=== PATIENT | female | born 1940 | race Caucasian/White ===

== ENCOUNTER → 2020-10-14 13:16 | Outpatient (BNVA) | payer MEDICARE, SELFPAY | PROVIDERS: PCP Internal Medicine; Visit Provider Internal Medicine Endocrinology, Diabetes & Metabolism | DX: E11.65 Type 2 diabetes mellitus with hyperglycemia (principal); E11.21 Type 2 diabetes mellitus with diabetic nephropathy; E11.22 Type 2 diabetes mellitus with diabetic chronic kidney disease; N18.30 Chronic kidney disease, stage 3 unspecified; E78.5 Hyperlipidemia, unspecified; Z79.4 Long term (current) use of insulin | CPT/HCPCS: 82947; 99202 ==

== ENCOUNTER → 2020-11-02 07:58 | Outpatient (BNVA) | payer MEDICARE, SELFPAY | PROVIDERS: PCP Internal Medicine; Visit Provider Internal Medicine Endocrinology, Diabetes & Metabolism | DX: E11.65 Type 2 diabetes mellitus with hyperglycemia (principal); E11.21 Type 2 diabetes mellitus with diabetic nephropathy; E11.22 Type 2 diabetes mellitus with diabetic chronic kidney disease; N18.30 Chronic kidney disease, stage 3 unspecified; E13.9 Other specified diabetes mellitus without complications; S36.209S Unspecified injury of unspecified part of pancreas, sequela; E78.5 Hyperlipidemia, unspecified; Z79.4 Long term (current) use of insulin | CPT/HCPCS: 82947; 99212 ==

== ENCOUNTER → 2021-02-16 07:57 | Outpatient (BNVA) | payer MEDICARE, SELFPAY | PROVIDERS: PCP Internal Medicine; Visit Provider Nurse Practitioner Gerontology | DX: E11.65 Type 2 diabetes mellitus with hyperglycemia (principal); E11.21 Type 2 diabetes mellitus with diabetic nephropathy; E13.9 Other specified diabetes mellitus without complications; E11.22 Type 2 diabetes mellitus with diabetic chronic kidney disease; I12.9 Hypertensive chronic kidney disease with stage 1 through stage 4 chronic kidney disease, or unspecified chronic kidney disease; N18.30 Chronic kidney disease, stage 3 unspecified; E78.5 Hyperlipidemia, unspecified; S36.209S Unspecified injury of unspecified part of pancreas, sequela; Z79.4 Long term (current) use of insulin | CPT/HCPCS: 82947; 83036; 99212 ==

== ENCOUNTER 2021-02-17 08:01 | Outpatient (REF) | payer MEDICARE, SELFPAY ==
[2021-02-17 11:41] LABS: Alanine Aminotransferase 30 U/L (0-31); Albumin Level 3.6 g/dL (3.5-5.0); Alkaline Phosphatase 129 U/L (39-117); Anion Gap 12 (12-20); Aspartate Amino Transferase 34 U/L (5-31); Bilirubin Total 0.9 mg/dL (0.0-1.0); Blood Urea Nitrogen 15 mg/dL (9-16); Calcium 8.6 mg/dL (8.4-10.2); Carbon Dioxide 29 mmol/L (22-29); Chloride 106 mmol/L (96-108); Cholesterol 155 mg/dL; Estimated Glomerular Filt Rate 37; Glucose Fasting 222 mg/dL (60-99); HDL Cholesterol 66 mg/dL; LDL Cholesterol Calculated 71 mg/dl; Potassium 3.7 mmol/L (3.3-5.1); Sodium 143 mmol/L (135-145); Total Protein 6.2 g/dL (6.5-8.0); Triglycerides 90 mg/dL
[2021-02-17 11:58] LABS: Creatinine Urine 127.92 mg/dL; Microalbum/Creatinine Ratio Ur 46.9 ug/mg cr
[2021-02-18 08:16] LABS: LDL Cholesterol Direct 80 mg/dL (<100)
== END 2021-02-17 08:02 | disposition home or self-care (01) ==
LOC: HO.10HDLNP 08:01
PROVIDERS: Visit Provider Nurse Practitioner Gerontology
DX: E11.65 Type 2 diabetes mellitus with hyperglycemia (principal)
CPT/HCPCS: 80053; 80061; 82043; 83721

== ENCOUNTER → 2021-09-19 09:42 | Outpatient (BNVA) | payer MEDICARE, SELFPAY | PROVIDERS: PCP Internal Medicine; Visit Provider Nurse Practitioner Gerontology | DX: E11.65 Type 2 diabetes mellitus with hyperglycemia (principal); E11.21 Type 2 diabetes mellitus with diabetic nephropathy; E11.22 Type 2 diabetes mellitus with diabetic chronic kidney disease; N18.30 Chronic kidney disease, stage 3 unspecified; E13.9 Other specified diabetes mellitus without complications; S36.209S Unspecified injury of unspecified part of pancreas, sequela; E78.5 Hyperlipidemia, unspecified; I10 Essential (primary) hypertension; Z79.4 Long term (current) use of insulin | CPT/HCPCS: 82947; 99212 ==

== ENCOUNTER → 2022-03-02 10:10 | Outpatient (BNVA) | payer MEDICARE, SELFPAY | PROVIDERS: PCP Internal Medicine; Visit Provider Internal Medicine Endocrinology, Diabetes & Metabolism | DX: E13.9 Other specified diabetes mellitus without complications (principal); S36.209S Unspecified injury of unspecified part of pancreas, sequela | CPT/HCPCS: 82947; 83036; 99212 ==

== ENCOUNTER → 2022-09-29 08:43 | Outpatient (BNVA) | payer MEDICARE, SELFPAY | PROVIDERS: PCP Internal Medicine; Visit Provider Registered Nurse Diabetes Educator | DX: E11.21 Type 2 diabetes mellitus with diabetic nephropathy (principal) | CPT/HCPCS: 99211 ==

== ENCOUNTER → 2022-10-02 10:08 | Outpatient (BNVA) | payer MEDICARE, SELFPAY | PROVIDERS: PCP Internal Medicine; Visit Provider Dietitian, Registered | DX: E13.9 Other specified diabetes mellitus without complications (principal); S36.209S Unspecified injury of unspecified part of pancreas, sequela | CPT/HCPCS: 97802 ==

== ENCOUNTER 2022-11-21 10:04 | Outpatient (AMB) | payer MEDICARE, SELFPAY ==
--- NOTE | 2022-11-21 10:47 | A.OFFVIS_ITS ---
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 Accompanied by: Self / Same As Patient Allergies tramadol Allergy (Unknown, Verified 03/02/22 10:29) Unknown HPI Comprehensive Diabetes Asmnt Most Recent Diabetes Results: Microalb/Creat Ratio 46.9 ug/mg cr 02/17/21 Cholesterol 155 mg/dL 02/17/21 HDL Cholesterol 66 mg/dL 02/17/21 Triglycerides 90 mg/dL 02/17/21 Creatinine 1.36 mg/dL (0.5-1.4) 02/17/21 Blood Urea Nitrogen 15 mg/dL (9-16) 02/17/21 Sodium 143 mmol/L (135-145) 02/17/21 Potassium 3.7 mmol/L (3.3-5.1) 02/17/21 Chloride 106 mmol/L (96-108) 02/17/21 Carbon Dioxide 29 mmol/L (22-29) 02/17/21 Calcium 8.6 mg/dL (8.4-10.2) 02/17/21 AST 34 U/L (5-31) H 02/17/21 ALT 30 U/L (0-31) 02/17/21 Total Protein 6.2 g/dL (6.5-8.0) L 02/17/21 Albumin 3.6 g/dL (3.5-5.0) 02/17/21 [facility] Medical History Afib CHF (congestive heart failure) 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 11% Hyperglycemia:? 33% Time in Range:? 56% Average glucose for the last 2 weeks? 154 mg/dL Pt is having significant hypoglycemic event, patient is also not scanning sensor every 6-8 hours Patient seems confused regarding how she should dose NovoLog insulin at meals Patient also reports sometimes taking NovoLog doses to 60 minutes after meals Patient also does not seem to remember to always take NovoLog Patient is currently using NovoLog sliding scale She is also taking Lantus 10 units daily Reviewed how to interpret trend arrows Reminded patient that to check finger sticks if symptoms do not match sensor reading. Discussed lag time between finger stick and sensor data.? Patient able to insert sensor independently at home without issue.? Will discuss with Dr. 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
== END 2022-11-21 11:00 | disposition home or self-care (01) ==
PROVIDERS: PCP Internal Medicine; Visit Provider Registered Nurse Diabetes Educator
DX: E13.9 Other specified diabetes mellitus without complications (principal); S36.209S Unspecified injury of unspecified part of pancreas, sequela

== ENCOUNTER → 2022-11-21 10:04 | Outpatient (BNVA) | payer MEDICARE, SELFPAY | PROVIDERS: PCP Internal Medicine; Visit Provider Registered Nurse Diabetes Educator | DX: S36.209S Unspecified injury of unspecified part of pancreas, sequela (principal); X58.XXXS Exposure to other specified factors, sequela; E11.65 Type 2 diabetes mellitus with hyperglycemia; E11.21 Type 2 diabetes mellitus with diabetic nephropathy; Z79.4 Long term (current) use of insulin | CPT/HCPCS: 99211 ==

== ENCOUNTER 2023-01-22 06:09 | Outpatient (REF) | payer SELFPAY ==
[2023-01-22 05:54] LABS: MANUAL DIFF FLAG NO
[2023-01-22 06:37] LABS: Anion Gap 15 (12-20); Blood Urea Nitrogen 5 mg/dL (9-16); C Reactive Protein 0.43 mg/dL (< or = 0.50); Calcium 8.8 mg/dL (8.4-10.2); Carbon Dioxide 25 mmol/L (22-29); Chloride 108 mmol/L (96-108); Estimated Glomerular Filt Rate 56; Glucose Random 122 mg/dL (60-115); Potassium 3.4 mmol/L (3.3-5.1); Sodium 145 mmol/L (135-145)
[2023-01-22 06:59] LABS: Basophils Absolute Auto 0.1 X10*3/uL (0.0-0.2); Basophils Percent Auto 1.3 % (0-2); Eosinophils Absolute Auto 0.3 X10*3/uL (0.0-0.4); Eosinophils Percent Auto 4.2 % (0-4); Hematocrit 43.2 % (37.0-47.0); Hemoglobin 13.8 g/dl (12.0-16.0); Imm Gran Abs Auto 0.03 X10*3/uL (0.00-0.03); Imm Gran Pct Auto 0.5 % (0.0-0.4); Lymphocytes Absolute Auto 1.4 X10*3/uL (1.2-4.9); Lymphocytes Percent Auto 21.7 % (20-40); Mean Corpuscular HGB Conc 31.9 g/dl (31.0-35.0); Mean Corpuscular Hemoglobin 32.9 pg (27.0-33.0); Mean Corpuscular Volume 103.1 fL (80.0-98.0); Mean Platelet Volume 9.9 fL (9.4-12.3); Monocytes Absolute Auto 0.5 X10*3/uL (0.1-1.2); Monocytes Percent Auto 7.7 % (2-11); Neutrophils Absolute Auto 4.1 x10*3/uL (2.0-8.3); Neutrophils Percent Auto 64.6 % (45-73); Platelet Count 241 X10*3/uL (160-400); Red Blood Count 4.19 X10*6/uL (4.20-5.50); Red Cell Distribution Width 14.8 % (11.0-16.0); White Blood Count 6.4 X10*3/uL (4.8-10.8)
[2023-01-22 07:27] LABS: Erythrocyte Sedimentation Rate 16 MM/HR (0-20)
== END 2023-01-22 06:10 | disposition home or self-care (01) ==
LOC: HO.MMNH1L 06:09
PROVIDERS: Visit Provider Family Medicine
DX: I10 Essential (primary) hypertension (principal)
CPT/HCPCS: 36415; 80048; 85025; 85652; 86140

== ENCOUNTER 2023-11-23 10:20 | Outpatient (AMB) | payer MEDICARE, SELFPAY ==
--- NOTE | 2023-11-23 10:30 | MHC.OFFVIS ---
Vital Signs 11/23/23 10:31 Weight 128 lb 4.944 oz BP 120/82 Blood Pressure Location Rt brachial Position Sitting Pulse 50 Pulse Source Pulse Oximeter Intake Visit Reasons: Diabetes/LVM Intake Note: New Patient presents today to establish treatment for Type 2 Diabetes Mellitus: Last diabetic eye exam was on: 01/2023 Last Podiatry Exam was on: Doesn't have one. Most recent HbA1c: 9.8% Random Glucose- 208 mg/dL Plan Rep Required: No Accompanied by: Self / Same As Patient Allergies tramadol Allergy (Unknown, Verified 11/23/23 10:36) Unknown Medication List - Last Reconciled 11/23/23 by JAKE Vaca alendronate 70 mg PO QWEEK apixaban 2.5 mg PO BID blood sugar diagnostic As directed blood sugar diagnostic (FreeStyle Precision Toney Strips) As directed 4x/day clobetasol 0.05% 1 appl topical BID clopidogrel 75 mg PO DAILY digoxin 62.5 mcg PO DAILY diltiazem HCl CD 300 mg PO DAILY famotidine 20 mg PO DAILY FreeStyle Serafin 2 Sensor (flash glucose sensor) Every 14 days NS furosemide 20 mg PO DAILY gabapentin 100 mg PO TID hydralazine 75 mg PO BID insulin aspart U-100 5-10 units before meals subcut 3 times a day; insulin degludec (Tresiba FlexTouch U-100 insulin) 18 units (0.18 mL) subcut BEDTIME levofloxacin mg PO ohlkqi-ftageyfw-cadnohz 24,000-76,000 -120,000 unit (Creon) 1 cap PO BID lisinopril 2.5 mg PO DAILY metoprolol tartrate 150 mg PO pantoprazole 40 mg PO DAILY pen needle, diabetic (BD Kerry 2nd Gen Pen Needle) 5 times a day HPI Comments Details: Patient is 82-year-old female with DM type 2 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 Patient was last seen on 03/02/[address] Nielsen. She has pancreatic diabetes with multiple complications and no beta cell reserve likely due to pancreatic surgery. She spends 6 months in [place]. 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 Continuous glucose monitoring: CGM is active 76% with an average blood glucose of 221. Patient has very low blood glucose of less than 0% of the time. Patient had low blood glucose from 1% the time. Blood glucose in target range of 70-180, 34%. Blood glucose high 29% and very high >250 36% of the time. A1c 9.8% today. Micro and macrovascular complications: nephropathy, neuropathy (plantar surfaces of feet). Diabetes medications: Basaglar 17 units (increased from 15 units by her PCP mid September), NovoLog 5 units before meals with correction scale as noted. More than 200 mg/dL to add 2 units More than 300 mg/dL to add 3 units More than 400 mg/dL to add 4 units. Hypoglycemia: Denies. Hyperglycemia: + urinary frequency and polydipsia. Ophthalmology evaluation: ?date. Done in [place] during the past 12 months. No retinopathy per patient. She eats 3 meals per day. She been having desserts in the afternoon and evening most days. External labs dated 10/12/2023 Hemoglobin A1c 9.9% Creatinine 1.27 GFR 41 Alk-phos 194 AST 141 ALT 81 Total cholesterol 149 HDL 60 LDL 71 TSH 5.030 Free T4 1.05 Urine creatinine 41.9 Malb/CREAT ratio <7 Microalbumin < 3 ROS: Constitutional: No unexplained weight loss, fever, chills, fatigue Respiratory: No shortness of breath Cardiovascular: No chest pain Neurologic: No headache, dizziness, syncope Physical exam: Constitutional: Alert, in no distress. Eyes: Pupils are equal, round and reactive to light. Extraocular muscles intact. Neck: Supple, Full range of motion. No lymphadenopathy. Respiratory: Clear to auscultation. Cardiovascular: S1 S2 regular. No murmurs. Feet:: Warm and well perfused. No clubbing, cyanosis or edema. No open wounds. Mildly decreased vibratory sensation bilaterally. Intact sensation b/l to monofilament. 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 Switch Basaglar to Tresiba 18 units. Given age we will adjust sliding scale modestly: NovoLog 5 units before meals with correction scale: More than 200 mg/dL to add 3 units More than 300 mg/dL to add 4 units More than 400 mg/dL to add 5 units. Short term follow up in 6 weeks for diabetes med review. Would likely benefit from pump. Refer piyush THOMAS. Written instructions provided to patient. Orders: Orders AMB Hemoglobin A1c Today [place] NP E11.65 - Type 2 diabetes mellitus with hyperglycemia, Z13.9 - Encounter for screening, unspecified Referrals Diabetes Education Referral JAKE Vaca E13.9 - Other specified diabetes mellitus without complications, S36.209S - Unspecified injury of unspecified part of pancreas, sequela Medications: New insulin degludec (Tresiba FlexTouch U-100 insulin) Replaces Basaglar(insulin glargine) 18 units (0.18 mL) subcut BEDTIME 15 mL 5RF JAKE Vaca Discontinued insulin glargine (Basaglar KwikPen U-100 Insulin) Discontinued Reason: Doctor's Order 15 units (0.15 mL) subcut DAILY 15 mL 0RF E11.65 - Type 2 diabetes mellitus with hyperglycemia Coding Level of Care Code Est Pt Level 4 (74224) Complex EM visit Add On G2211 Diagnoses 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
[2023-11-23 10:31] VITALS: BP 120/82; PULSE 50
[2023-11-23 10:46] LABS: Glucose, Whole Blood 208 mg/dL (60-115)
== END 2023-11-23 11:32 | disposition home or self-care (01) ==
PROVIDERS: PCP Internal Medicine; Visit Provider Nurse Practitioner Adult Health
DX: E13.9 Other specified diabetes mellitus without complications (principal); S36.209S Unspecified injury of unspecified part of pancreas, sequela; E11.22 Type 2 diabetes mellitus with diabetic chronic kidney disease; N18.30 Chronic kidney disease, stage 3 unspecified; Z13.9 Encounter for screening, unspecified; E11.65 Type 2 diabetes mellitus with hyperglycemia
CPT/HCPCS: 99214; G2211

== ENCOUNTER → 2023-11-23 10:20 | Outpatient (BNVA) | payer MEDICARE, SELFPAY | PROVIDERS: PCP Internal Medicine; Visit Provider Nurse Practitioner Adult Health | DX: E13.22 Other specified diabetes mellitus with diabetic chronic kidney disease (principal); S36.209S Unspecified injury of unspecified part of pancreas, sequela; N18.30 Chronic kidney disease, stage 3 unspecified; Z79.4 Long term (current) use of insulin | CPT/HCPCS: 82947; 83036; 99212 ==

== ENCOUNTER 2024-01-02 13:24 | Outpatient (AMB) | payer SELFPAY ==
--- NOTE | 2024-01-02 13:42 | A.OFFVIS_ITS ---
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: No Accompanied by: Self / Same As Patient Allergies tramadol Allergy (Unknown, Verified 11/23/23 10:36) Unknown HPI Comprehensive Diabetes Asmnt Most Recent Diabetes Results: Creatinine 0.95 mg/dL (0.5-1.4) 01/22/23 Blood Urea Nitrogen 5 mg/dL (9-16) L 01/22/23 Sodium 145 mmol/L (135-145) 01/22/23 Potassium 3.4 mmol/L (3.3-5.1) 01/22/23 Chloride 108 mmol/L (96-108) 01/22/23 Carbon Dioxide 25 mmol/L (22-29) 01/22/23 Calcium 8.8 mg/dL (8.4-10.2) 01/22/23 AST 72 U/L (5-31) H 01/10/23 ALT 49 U/L (0-31) H 01/10/23 Total Protein 5.8 g/dL (6.5-8.0) L 01/10/23 Albumin 3.0 g/dL (3.5-5.0) L 01/10/23 [facility] Medical History (Updated 11/23/23 @ 12:06 by JAKE Vaca) Neuropathy of both feet Osteoporosis 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 Social History Household Members: Other Household Members Other:: [facility] Alcohol intake: former Patient Tobacco Use Status: Former Tobacco user Assessment & Plan Assessment & Plan (1) CKD stage 3 due to type 2 diabetes mellitus: Code(s): E11.22 - Type 2 diabetes mellitus with diabetic chronic kidney disease; N18.30 - Chronic kidney disease, stage 3 unspecified Plan: Personal Continuous Glucose Monitor: Patients CGM information reviewed Reviewed patient's sensor data: Hypoglycemia: ? 3% Hyperglycemia:? 54% Time in Range:43%? Average glucose for the last 2 weeks 198? mg/dL Patient is episodes of hypoglycemia have improved from 11% at last visit to 3% at this visit Patient was recently switched to Tresiba 18 units, patient is still experiencing some motor and generator brush maker hypoglycemia. Recommended to patient she decrease Tresiba from 18 units to 14 units Also reminded patient to carry juice box or glucose tabs with her, and put hy poglycemic treatment next to her bed so if she wakes up overnight or in the morning with low blood sugar she can treat hypoglycemia Patient will be leaving for [place] February 28, will follow-up with chief administrative officer in the spring Patient able to insert sensor independently at home without issue.? People with diabetes can develop many different foot problems. Even ordinary problems can get worse and lead to serious complications. Foot problems most often happen when there is nerve damage, also called neuropathy. This can cause tingling, pain (burning or stinging), or weakness in the foot. It can also cause loss of feeling in the foot, so you can injure it and not know it. Poor blood flow or changes in the shape of your feet or toes may also cause problems. Take good care of your feet and see your doctor right away if you see any signs of foot problems. Take care of your feet. When you have diabetes, caring for your feet is very important in avoiding serious foot complications. Take care of your feet by doing the following:? * Wash your feet thoroughly everyday * Dry them thoroughly, and don?t forget to dry between your toes * Moisturize your feet, but avoid moisturizing between your toes? * Keep your toenails trim, and use an emery board to file down sharp edges * Check your feet for sores, cuts, blisters, corns, or redness daily. Let your doctor know if you find any of these.? * Wear moisture-wicking socks? * Before putting your shoes on, check for sharp objects (i.e. small rocks)? * Wear shoes that fit well and don?t rub your feet While you?re at it, avoid these: * Don?t walk around barefoot * Don?t soak your feet Portions of this note were created using voice recognition software, please excuse any words or phrases that may have been misinterpreted. Patient Instructions: Reduce Tresiba from 18 units to 14 units daily People with diabetes can develop many different foot problems. Even ordinary problems can get worse and lead to serious complications. Foot problems most often happen when there is nerve damage, also called neuropathy. This can cause tingling, pain (burning or stinging), or weakness in the foot. It can also cause loss of feeling in the foot, so you can injure it and not know it. Poor blood flow or changes in the shape of your feet or toes may also cause problems. Take good care of your feet and see your doctor right away if you see any signs of foot problems. Take care of your feet. When you have diabetes, caring for your feet is very important in avoiding serious foot complications. Take care of your feet by doing the following:? * Wash your feet thoroughly everyday * Dry them thoroughly, and don?t forget to dry between your toes * Moisturize your feet, but avoid moisturizing between your toes? * Keep your toenails trim, and use an emery board to file down sharp edges * Check your feet for sores, cuts, blisters, corns, or redness daily. Let your doctor know if you find any of these.? * Wear moisture-wicking socks? * Before putting your shoes on, check for sharp objects (i.e. small rocks)? * Wear shoes that fit well and don?t rub your feet While you?re at it, avoid these: * Don?t walk around barefoot * Don?t soak your feet * Don?t smoke [email or web address] Coding Level of Care Code Est Pt Level 1 (12450) Diagnoses CKD stage 3 due to type 2 diabetes mellitus E11.22; N18.30
== END 2024-01-02 13:50 | disposition home or self-care (01) ==
PROVIDERS: PCP Internal Medicine; Visit Provider Registered Nurse Diabetes Educator
DX: E11.22 Type 2 diabetes mellitus with diabetic chronic kidney disease (principal); N18.30 Chronic kidney disease, stage 3 unspecified

== ENCOUNTER → 2024-01-02 13:24 | Outpatient (BNVA) | payer MEDICARE, SELFPAY | PROVIDERS: PCP Internal Medicine; Visit Provider Registered Nurse Diabetes Educator | DX: E11.22 Type 2 diabetes mellitus with diabetic chronic kidney disease (principal); N18.30 Chronic kidney disease, stage 3 unspecified | CPT/HCPCS: 99211 ==

== ENCOUNTER 2024-01-04 10:48 | Outpatient (AMB) | payer MEDICARE, SELFPAY ==
--- NOTE | 2024-01-04 10:49 | A.OFFVIS_ITS ---
Vital Signs 01/04/24 10:59 Height 5 ft 1 in Weight 124 lb 1.924 oz BMI 23.4 BP 130/68 Blood Pressure Location Rt brachial Position Sitting Pulse 69 Pulse Source Pulse Oximeter Intake Visit Reasons: Diabetes Intake Note: Patient present today to follow up on Type 2 Diabetes Mellitus. Last Diabetic Eye exam: 01/2023, has yearly visits. Last Podiatry Visit: Does not see a Stone Lathe Operator Random Glucose: 249 mg/dl HgA1C: 9.8% 11/23/23 Job Boss Required: No Accompanied by: Self / Same As Patient Allergies tramadol Allergy (Unknown, Verified 01/04/24 11:00) Unknown Medication List - Last Reconciled 01/04/24 by JAKE Vaca alendronate 70 mg PO QWEEK apixaban 2.5 mg PO BID blood sugar diagnostic As directed blood sugar diagnostic (FreeStyle Precision Toney Strips) As directed 4x/day clobetasol 0.05% 1 appl topical BID clopidogrel 75 mg PO DAILY digoxin 62.5 mcg PO DAILY diltiazem HCl CD 300 mg PO DAILY famotidine 20 mg PO DAILY FreeStyle Serafin 2 Sensor (flash glucose sensor) Every 14 days NS furosemide 20 mg PO DAILY gabapentin 100 mg PO TID glucagon 3 mg/actuation (Baqsimi) 3 mg intranasal ONCE hydralazine 75 mg PO BID insulin aspart U-100 5-10 units before meals subcut 3 times a day; insulin degludec (Tresiba FlexTouch U-100 insulin) 14 units subcut BEDTIME levofloxacin mg PO pvvtoz-yaiiaonj-hbleovq 24,000-76,000 -120,000 unit (Creon) 1 cap PO BID lisinopril 2.5 mg PO DAILY metoprolol tartrate 150 mg PO pantoprazole 40 mg PO DAILY pen needle, diabetic (BD Kerry 2nd Gen Pen Needle) 5 times a day HPI Comments Details: Patient is 83-year-old female with DM type 2 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 Patient was last seen by me She has pancreatic diabetes with multiple complications and no beta cell reserve likely due to pancreatic surgery. She spends 6 months in [place]. She leaves early February. she is with her son, Codey today ([phone]). 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 [phone] Dr. Culp Continuous glucose monitoring: CGM is active 68% with an average blood glucose of 197 (down from 221). Patient has very low blood glucose of less than 0% of the time. Patient had low blood glucose 3% the time. Blood glucose in target range of 70-180, 45% (up from 34%). Blood glucose high 25% and very high >250 27 % of the time (down from 36%). BG trending high after her noon meal BG trend lower correctional probation officer hours. Micro and macrovascular complications: nephropathy, neuropathy (plantar surfaces of feet). Diabetes medications: Basaglar 18 units, NovoLog 5 units before meals with correction scale as noted. More than 200 mg/dL to add 3 units More than 300 mg/dL to add 4 units More than 400 mg/dL to add 5 units. Hypoglycemia: She's had nocturnal episodes and decreased Tresiba to 14 units after seeing DE 01/01 and has not had hypoglycemia the last 2 days. BG this morn ing 116. Hyperglycemia: + urinary frequency and polydipsia. Ophthalmology evaluation: ?date. Done in [place] during the past 12 months. No retinopathy per patient. She eats 3 meals per day. She been having desserts in the afternoon. External labs dated 10/12/2023 Hemoglobin A1c 9.9% Creatinine 1.27 GFR 41 Alk-phos 194 AST 141 ALT 81 Total cholesterol 149 HDL 60 LDL 71 TSH 5.030 Free T4 1.05 Urine creatinine 41.9 Malb/CREAT ratio <7 Microalbumin < 3 ROS: Constitutional: No unexplained weight loss, fever, chills, fatigue Respiratory: No shortness of breath Cardiovascular: No chest pain Neurologic: No headache, dizziness, syncope Physical exam: Constitutional: Alert, in no distress. Eyes: Pupils are equal, round and reactive to light. Extraocular muscles intact. Neck: Supple, Full range of motion. No lymphadenopathy. Respiratory: Clear to auscultation. Cardiovascular: S1 S2 regular. No murmurs. 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 Hyperglycemia has improved, but she experienced hypoglycemia following increase in basal bolus dose. Continue reduced dose of 14 units of Tresiba at this time. Sent glucose tablets and given instructions on treating hypoglycemia. I will see if Baqsimi is approved by insurance given patient's advanced age-son states she was incoherent a few times last year and they had to call 911 though only 1 of these episodes was due to low BG. Reviewed CGM readings with PROCESS ENVIRONMENTAL TECHNICIAN and made the following adjustment to pre-lunch dose of Novolog. Lunch: NovoLog 5 units before meals with correction scale: More than 200 mg/dL to add 5 units More than 300 mg/dL to add 6 units More than 400 mg/dL to add 7 units. Breakfast and dinner NovoLog 5 units before meals with correction scale: More than 200 mg/dL to add 3 units More than 300 mg/dL to add 4 units More than 400 mg/dL to add 5 units. Typed instructions provided to patient. Follow up in January before trip to [place] or sooner as needed. Medications: New glucagon 3 mg/actuation (Baqsimi) 3 mg (one actuation) into a single nostril; if no response, may repeat in 15 minutes using a new intranasal device. 3 mg intranasal ONCE 2 ea 0RF Patient Instructions: Continue Tresiba 14 units. Breakfast and dinner NovoLog 5 units before meals with correction scale: More than 200 mg/dL to add 3 units More than 300 mg/dL to add 4 units More than 400 mg/dL to add 5 units. Lunch: NovoLog 5 units before meals with correction scale: More than 200 mg/dL to add 5 units More than 300 mg/dL to add 6 units More than 400 mg/dL to add 7 units. I sent glucose tablets to your pharmacy and submitted a prescription for a nasal spray to treat low blood sugar. If you experience low blood sugar, treat this by eating a chewable fruit candy like skittles or jelly beans (about 8 pieces), 4 ounces (1/2 cup) of fruit juice (not diet), 1 tablespoon of honey or 4 glucose tablets. If your blood sugar is under 50, take double the amount of one of the above. Recheck your blood sugar in 15 minutes. 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
[2024-01-04 10:59] VITALS: BP 130/68; PULSE 69; BMI 23.4
[2024-01-04 11:13] LABS: Glucose, Whole Blood 249 mg/dL (60-115)
== END 2024-01-04 12:11 | disposition home or self-care (01) ==
PROVIDERS: PCP Internal Medicine; Visit Provider Physician Assistant Medical
DX: E11.22 Type 2 diabetes mellitus with diabetic chronic kidney disease (principal); S36.209S Unspecified injury of unspecified part of pancreas, sequela; N18.30 Chronic kidney disease, stage 3 unspecified
CPT/HCPCS: 99215

== ENCOUNTER → 2024-01-04 10:48 | Outpatient (BNVA) | payer MEDICARE, SELFPAY | PROVIDERS: PCP Internal Medicine; Visit Provider Physician Assistant Medical | DX: E11.22 Type 2 diabetes mellitus with diabetic chronic kidney disease (principal); N18.30 Chronic kidney disease, stage 3 unspecified; S36.209S Unspecified injury of unspecified part of pancreas, sequela; X58.XXXS Exposure to other specified factors, sequela | CPT/HCPCS: 82947; 99212 ==

== ENCOUNTER 2024-02-19 09:22 | Outpatient (AMB) | payer MEDICARE, SELFPAY ==
--- NOTE | 2024-02-19 09:29 | A.OFFVIS_ITS ---
Vital Signs 02/19/24 09:31 Height 5 ft 1 in Weight 133 lb 2.547 oz BMI 25.2 BP 118/62 Blood Pressure Location Rt brachial Position Sitting Pulse 86 Pulse Source Pulse Oximeter Intake Visit Reasons: Diabetes/LVM Intake Note: Patient presents today for a follow-up on Type 2 Diabetes Mellitus: Last Diabetic eye exam was on: 01/2023, DUE Last Podiatry exam was on: Does not see a Authorization Rep Most recent HbA1c: 9.9%, 02/19/2024 Random Glucose- 388 mg/dL, Today Case Operator Required: No Accompanied by: Self / Same As Patient Allergies tramadol Allergy (Unknown, Verified 02/19/24 09:30) Unknown HPI Comments Details: Patient is 84-year-old female with DM type 2 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 She has pancreatic diabetes with multiple complications and no beta cell reserve likely due to pancreatic surgery. She spends 6 months in [place]. She leaves early February. Her son, Codey, is not here today ([phone]), but the patient said to contact him after the appointment to update him. 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 HgA1C: 9.9% 02/19/24 POC 388. She ate 2 eggs, 2 slices of toast with butter, and sugar free creamer in coffee at 7:30 this morning. She did not take Tresiba this morning because she ran out of needles yesterday. Rx sent to pharmacy. Denies nausea, vomiting, vision changes, dizziness, weakness. States she feels okay today aside from being tired and allergies are bothering her. Her vice president for instruction in [place] is: [facility] Endocrinology [facility]. [phone] Dr. Culp Reviewed CGM download: Time CGM active: 69% Average glucose 231 Glucose variability 41% Very high 43% High 23% Target 32% Low 1% down from 3% Very low 1% Nocturnal hypoglycemia and hyperglycemia and hyperglycemia throughout the day February 16 hypoglycemia with blood glucose of 40 at 12 am. Patient says she didn't have any symptoms or treat this. States when she is low she usually feels weak and shaky. She tells me that she sometimes forgets to take Novolog before dinner which is at 5 or 5:30 pm and will take the injection at 7 or 7:30pm. Micro and macrovascular complications: nephropathy, neuropathy (plantar surfaces of feet). Diabetes medications: Tresiba 14 units, NovoLog 5 units before meals with correction scale as noted. Lunch: More than 200 mg/dL to add 5 units More than 300 mg/dL to add 6 units More than 400 mg/dL to add 7 units. Breakfast and dinner: NovoLog 5 units before meals with correction scale: More than 200 mg/dL to add 3 units More than 300 mg/dL to add 4 units More than 400 mg/dL to add 5 units. Ophthalmology evaluation: Done in [place] during the past 12 months. No retinopathy per patient. External labs dated 10/12/2023 Hemoglobin A1c 9.9% Creatinine 1.27 GFR 41 Alk-phos 194 AST 141 ALT 81 Total cholesterol 149 HDL 60 LDL 71 TSH 5.030 Free T4 1.05 Urine creatinine 41.9 Malb/CREAT ratio <7 Microalbumin < 3 ROS: ROS: Constitutional: No unexplained weight loss, fever or chills. Eyes: No vision changes, blurry vision, double vision, eye pain, eye redness, eye discharge. ENT: No hearing loss, sneezing, congestion, +runny nose and post nasal drip. Respiratory: No shortness of breath, cough or sputum production. Cardiovascular: No chest pain, chest pressure or chest discomfort. No pa lpitations or pedal edema. Gastrointestinal: No anorexia, nausea, vomiting or diarrhea. No abdominal pain Neurologic: No headache, dizziness, syncope, weakness Endocrine: No cold or heat intolerance. No polyuria or polydipsia. Physical exam: Constitutional: Alert, in no distress. Eyes: Pupils are equal, round and reactive to light. Extraocular muscles intact. Neck: Supple, Full range of motion. No lymphadenopathy. Respiratory: Clear to auscultation. Cardiovascular: S1 S2 regular. No murmurs. 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 Social History Household Members: Other Household Members Other:: Lives with [facility] Alcohol intake: former Patient Tobacco Use Status: Former Tobacco user Physical Exam Vital Signs: Last Vital Signs Pulse 86 02/19/24 09:31 BP 118/62 02/19/24 09:31 BMI result Body Mass Index 25.2 Results AMB Hemoglobin A1c AMB Hemoglobin A1c 9.9 % Last Edit by EMANUEL Fischer on 02/19/24 09:51 Results Reviewed Results Reviewed: Laboratory Last Values Glucose (Clinic) 388 mg/dL (60-115) H* 02/19/24 09:41 Hgb A1c (Clinic) 9.9 % (4.0-6.0) H 02/19/24 09:31 Assessment & Plan Assessment & Plan (1) 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 Patient was asymptomatic when BG was in 40s a couple nights ago. This resolved without intervention. This may have been a false reading. She had 2 other low glucose events in the 60s which may have been due to improper administration of insulin aspart. Written/verbal instructions on insulin administration reviewed with the patient. She has glucose tablets and given instructions on treating hypoglycemia and Baqsimi. Due to hyperglycemia and advanced age we will simplify and tighten her sliding scale: Insulin aspart: Under 150 do not take any insulin aspart Blood sugar 150-199 take 5 units before meal Blood sugar 200-249 take 9 units Blood sugar 250-299 take 10 units Blood sugar 300-349 take 11 units Blood sugar 350-399 take 12 units Blood sugar Over 400 take 13 units Continue Tresiba 14 units daily. Typed instructions provided to patient. Follow up in September 2024. She leaves for [place] in a couple weeks. At her request I spoke to her son, Codey, and updated him about the plan. He confirms she has an appointment scheduled with endocrinology in [place]. Will fax this note. Orders: Orders AMB Hemoglobin A1c Today E11.65 - Type 2 diabetes mellitus with hyperglycemia Medications: Changed From pen needle, diabetic (BD Kerry 2nd Gen Pen Needle) 5 times a day 400 ea 4RF E11.65 - Type 2 diabetes mellitus with hyperglycemia To pen needle, diabetic (BD Kerry 2nd Gen Pen Needle) Use to administer insulin four times daily. 400 ea 4RF E11.65 - Type 2 diabetes mellitus with hyperglycemia Refilled pen needle, diabetic (BD Kerry 2nd Gen Pen Needle) 5 times a day 400 ea 4RF E11.65 - Type 2 diabetes mellitus with hyperglycemia Patient Instructions: Insulin aspart: Under 150 do not take any insulin aspart Blood sugar 150-199 take 5 units before meal Blood sugar 200-249 take 9 units Blood sugar 250-299 take 10 units Blood sugar 300-349 take 11 units Blood sugar 350-399 take 12 units Blood sugar Over 400 take 13 units Continue Tresiba 14 units every morning Insulin aspart (short acting insulin) should not be taken after meals. This can cause low blood sugars. 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
[2024-02-19 09:31] VITALS: BP 118/62; PULSE 86; BMI 25.2
[2024-02-19 09:46] LABS: Glucose, Whole Blood 388 mg/dL (60-115)
== END 2024-02-19 10:50 | disposition home or self-care (01) ==
PROVIDERS: PCP Internal Medicine; Visit Provider Physician Assistant Medical
DX: E11.22 Type 2 diabetes mellitus with diabetic chronic kidney disease (principal); S36.209S Unspecified injury of unspecified part of pancreas, sequela; N18.30 Chronic kidney disease, stage 3 unspecified; E11.65 Type 2 diabetes mellitus with hyperglycemia; E13.9 Other specified diabetes mellitus without complications

== ENCOUNTER → 2024-02-19 09:22 | Outpatient (BNVA) | payer MEDICARE, SELFPAY | PROVIDERS: PCP Internal Medicine; Visit Provider Physician Assistant Medical | DX: E11.22 Type 2 diabetes mellitus with diabetic chronic kidney disease (principal); E11.65 Type 2 diabetes mellitus with hyperglycemia; E11.21 Type 2 diabetes mellitus with diabetic nephropathy; N18.30 Chronic kidney disease, stage 3 unspecified; S36.209S Unspecified injury of unspecified part of pancreas, sequela; X58.XXXS Exposure to other specified factors, sequela; Z79.4 Long term (current) use of insulin | CPT/HCPCS: 82947; 83036; 99212 ==

== ENCOUNTER 2024-10-07 09:43 | Outpatient (AMB) | payer MEDICARE, SELFPAY ==
--- NOTE | 2024-10-07 09:44 | A.OFFVIS_ITS ---
Vital Signs 10/07/24 09:47 Height 5 ft 1 in Weight 133 lb 6.075 oz BMI 25.2 BP 100/58 L Blood Pressure Location Lt brachial Position Sitting Pulse 68 Pulse Source Pulse Oximeter Pulse Oximetry (%) 95 Oxygen Delivery Method Room Air Intake Visit Reasons: follow up diabetes Intake Note: Patient present today to follow up on Type 2 Diabetes Mellitus. Patient receives Serafin 2 supplies through [employer] company: [employer] Last Diabetic Eye exam: approx in Mar 2024, has yearly appointments. 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 She has pancreatic diabetes with multiple complications and no beta cell reserve likely due to pancreatic surgery. She spends 6 months in [place]. She returned to [place] in August. She was last seen by me in January 2024. 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 Hemoglobin A1c today 10.1% with target <8.5%. POC 336. Patient reports blood sugar was 63 this morning so she had a glass of orange juice and a sandwich and more orange juice before coming here. Denies nausea, vomiting, vision changes, dizziness, weakness, polyuria or polydipsia. 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 [phone] Robbi Whitt reviewed her Serafin download dated September 24 to October 07 CGM active 57% Average glucose 243 Glucose variability for 41.1% Very high 47% High 22% Target range 29% Low 2% Pattern of hyperglycemia during the day and overnight as well as hypoglycemia overnight. In the past she had hypoglycemia with a glucose level of 40 and had no symptoms with it. She has a prescription for Baqsimi. Micro and macrovascular complications: nephropathy, neuropathy (plantar surfaces of feet). Diabetes medications: On her med list both Basaglar and Tresiba are written down. She says she is taking 14 units of long-acting insulin. She initially thought it was Tresiba and then said it was Basaglar. She is using a sliding scale for NovoLog. Patient says she does not have her updated sliding scale with her today, but it is written down at home. She could not confirm how much insulin she is taking without referencing it. Eats egg and toast around 7:30 or 8 am Eats sandwich around noon Eats dinner at 4 pm and usually has ice cream every night before bed Ophthalmology evaluation: Done in [place] during the past 12 months. No retinopathy per patient. ROS: Constitutional: No unexplained weight loss, fatigue, fever or chills. Eyes: No vision changes, blurry vision, double vision, eye pain, eye redness, eye discharge. Respiratory: No shortness of breath, cough or sputum production. Cardiovascular: No chest pain, chest pressure or chest discomfort. No palpitations or pedal edema. Gastrointestinal: No anorexia, nausea, vomiting or diarrhea. No abdominal pain Neurologic: No headache, dizziness, syncope, weakness Endocrine: No cold or heat intolerance. No polyuria or polydipsia. Physical exam: Constitutional: Alert, in no distress. Eyes: Pupils are equal, round and reactive to light. Extraocular muscles intact. Neck: Supple, Full range of motion. No lymphadenopathy. Respiratory: Clear to auscultation. Cardiovascular: S1 S2 regular. No murmurs. Right foot: Warm and well perfused. No clubbing, cyanosis or edema. Intact DP pulse. Decreased vibratory sensation. Intact sensation to monofilament. No open wounds. Left foot: Warm and well perfused. No clubbing, cyanosis or edema. Intact DP pulse. Decreased vibratory sensation. Intact sensation to monofilament. No open wounds. 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 Social History Household Members: Other Household Members Other:: Lives with [facility] Alcohol intake: former Patient Tobacco Use Status: Former Tobacco user Physical Exam Vital Signs: Last Vital Signs Pulse 68 10/07/24 09:47 BP 100/58 L 10/07/24 09:47 Pulse Ox 95 10/07/24 09:47 Oxygen Delivery Method Room Air 10/07/24 09:47 BMI result Body Mass Index 25.2 Results AMB Hemoglobin A1c AMB Hemoglobin A1c 10.1 % Last Edit by EMANUEL Darnell on 10/07/24 10:05 Results Reviewed Results Reviewed: Laboratory Last Values Glucose (Clinic) 336 mg/dL (60-115) H 10/07/24 09:56 Hgb A1c (Clinic) 10.1 % (4.0-6.0) H 10/07/24 10:01 See scanned results from January 2024 Assessment & Plan Assessment & Plan (1) 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: Code(s): E13.9 - Other specified diabetes mellitus without complications; S36.209S - Unspecified injury of unspecified part of pancreas, sequela Category: Medical (2) CKD stage 3 due to type 2 diabetes mellitus: Code(s): E11.22 - Type 2 diabetes mellitus with diabetic chronic kidney disease; N18.30 - Chronic kidney disease, stage 3 unspecified Category: Medical (3) History of hypoglycemia: Code(s): Z86.39 - Personal history of other endocrine, nutritional and metabolic disease Category: Medical Plan 84-year-old female with uncontrolled diabetes mellitus secondary to pancreatic injury on basal-bolus insulin. Patient over compensated this morning for low blood sugar resulting in high blood sugar. Reviewed proper treatment of hypo and hyperglycemia. She has glucose tablets and Baqsimi. The patient could not confidently confirm what she is taking for insulin. She said she is going to be home later today so nursing will call her to confirm if she is taking Tresiba or Basaglar and how many units as well as her sliding scale for short-acting insulin. I will make adjustments based on this. Referred back to coding educator. Reviewed diabetic diet. I also asked her to call her endocrinology office in [place] and have them fax the office notes to me here. I provided her with our fax number. Labs ordered. She would like these done at the [facility] in [place]. I printed orders for her. Follow up in 1 month. Orders: Orders Creatinine Today E11.9 - Type 2 diabetes mellitus without complications, E13.9 - Other specified diabetes mellitus without complications, S36.209S - Unspecified injury of unspecified part of pancreas, sequela Aspartate Amino Transferase Today E13.9 - Other specified diabetes mellitus without complications, S36.209S - Unspecified injury of unspecified part of pancreas, sequela AMB Hemoglobin A1c Today E11.21 - Type 2 diabetes mellitus with diabetic nephropathy Microalbumin, Random (w Creat) Today E11.9 - Type 2 diabetes mellitus without complications, E13.9 - Other specified diabetes mellitus without complications, S36.209S - Unspecified injury of unspecified part of pancreas, sequela Lipid Panel Today E13.9 - Other specified diabetes mellitus without complications, E78.5 - Hyperlipidemia, unspecified, S36.209S - Unspecified injury of unspecified part of pancreas, sequela Alanine Aminotransferase Today E13.9 - Other specified diabetes mellitus without complications, R79.89 - Other specified abnormal findings of blood chemistry, S36.209S - Unspecified injury of unspecified part of pancreas, sequela Referrals Diabetes Education Referral E11.65 - Type 2 diabetes mellitus with hyperglycemia Patient Instructions: [facility]. [phone] Dr. Culp Please call the bus transportation manager's office and ask them to send your last visit notes to my office. Continue Basaglar 14 units every morning for now. I will have the nurse call you this afternoon to ask what the sliding scale is that you use for your insulin before meals. If you experience low blood sugar (under 70), treat this by eating a chewable fruit candy like skittles or jelly beans (about 8 pieces), 4 ounces (1/2 cup) of fruit juice (not diet), 1 tablespoon of honey or 4 glucose tablets. If your blood sugar is under 55, take double the amount of one of the above. Recheck your blood sugar in 15 minutes. 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
[2024-10-07 09:47] VITALS: BP 100/58; PULSE 68; O2SAT 95; BMI 25.2
[2024-10-07 10:00] LABS: Glucose, Whole Blood 336 mg/dL (60-115)
--- OUTSIDE RECORDS SUMMARY | 2024-10-07 10:48 | XMS_ITS | Patient Health Record ---
Author Organization [facility] Address [address] [place] [address] Care Team Providers Care Roustabout Supervisor Name Role Phone Keanu Chávez Primary Care Provider RANJEET JULIAN Unavailable [phone] Marcello Culp Unavailable [phone] Chica Beard Unavailable Allergies Allergen (clinical drug ingredient) Drug/Non Drug Allergy documented on EMR Reaction Allergy Type Onset Date Status tramadol TRAMADOL dizziness Drug Allergy Active Results Component Value Reference Range Notes Hemoglobin A1C (96114) Reviewed date:03/12/2024 08:22:33 AM Interpretation:9.7% Performing Lab: Notes/Report: 9.7% Hemoglobin A1c (%) 9.7% CBC (INCLUDES DIFF/PLT) (Q-6 399) Reviewed date:05/12/2024 05:41:48 PM Interpretation: Performing Lab:TP, [facility]-[id number] [address], [id number] Clayton Bailey MD Notes/Report: FASTING: UNKNOWN WHITE BLOOD CELL COUNT 9.4 3.8-10.8 Thousand/ uL RED BLOOD CELL COUNT 4.62 3.80-5.10 Million/uL HEMOGLOBIN 15.0 11.7-15.5 g/dL HEMATOCRIT 46.5 35.0-45.0 % MCV 100.6 80.0-100.0 fL MCH 32.5 27.0-33.0 pg MCHC 32.3 32.0-36.0 g/dL For adults, a slight decrease in the calculated MCHC value (in the range of 30 to 32 g/dL) is most likely not clinically significant; however, it should be interpreted with caution in correlation with other red cell parameters and the patient's clinical condition. RDW 12.5 11.0-15.0 % PLATELET COUNT 222 140-400 Thousand/uL MPV 10.0 7.5-12.5 fL ABSOLUTE NEUTROPHILS 7417 5347-2298 cells/uL ABSOLUTE LYMPHOCYTES 9883 080-2584 cells/uL ABSOLUTE MONOCYTES 658 200-950 cells/uL ABSOLUTE EOSINOPHILS 56 15-500 cells/uL ABSOLUTE BASOPHILS 47 0-200 cells/uL NEUTROPHILS 78.9 LYMPHOCYTES 13.0 MONOCYTES 7.0 EOSINOPHILS 0.6 BASOPHILS 0.5 PTH, INTACT AND CALCIUM (Not yet reviewed by provider) Interpretation: Performing Lab:TP, [facility]-[id number] [address] [id number] Clayton Bailey MD Notes/Report: 0 PARATHYROID HORMONE, INTACT 183 16-77 pg/mL Interpretive Guide Intact PTH Calcium ------- Normal Parathyroid Normal Normal Hypoparathyroidism Low or Low Normal Low Hyperparathyroidism Primary Normal or High High Secondary High Normal or Low Tertiary High High Non-Parathyroid Hypercalcemia Low or Low Normal High CALCIUM 9.1 8.6-10.4 mg/dL SPECIMEN INTEGRITY COMPROMIS ED (Not yet reviewed by provider) Interpretation: Performing Lab:DAISHA, [facility]-[id number] [address] [id number] Clayton Bailey MD Notes/Report: 0 SPECIMEN INTEGRITY COMPROMISED Whole blood, unspun or partially spun gel barrier tube was received more than 6 hours since collection. A false elevation of K, Phos and LD as well as a false decrease in glucose may occur due to prolonged contact with red cells. Hemoglobin A1c ([id number], Q- 496) (Not yet reviewed by provider) Interpretation: Performing Lab:DAISHA, [facility]-[id number] [address] [id number] Clayton Bailey MD Notes/Report: 0 LIPID PANEL (Q-7600) (Not ye t reviewed by provider) Interpretation: Performing Lab:[facility]-[id number] [address], [id number] Clayton Bailey MD Notes/Report: 0 CHOLESTEROL, TOTAL 169 <200 mg/dL HDL CHOLESTEROL 70 > OR = 50 mg/dL TRIGLYCERIDES 112 <150 mg/dL LDL-CHOLESTEROL 79 Reference range: <100 Desirable range <100 mg/dL for primary prevention; <70 mg/dL for patients with CHD or diabetic patients with > or = 2 CHD risk factors. LDL-C is now calculated using the Gee-Collins calculation, which is a validated novel method providing better accuracy than the Friedewald equation in the estimation of LDL-C. Gee SS et al. TAYLOR. 2013;310(19): 0742-3961 (http://education.[employer]faq/TWQ252) CHOL/HDLC RATIO 2.4 <5.0 (calc) NON HDL CHOLESTEROL 99 <130 mg/dL (calc) For patients with diabetes plus 1 major ASCVD risk factor, treating to a non-HDL-C goal of <100 mg/dL (LDL-C of <70 mg/dL) is considered a therapeutic option. Albumin, Random Urine with C reatinine (Not yet reviewed by provider) Interpretation: Performing Lab:[facility]-[id number] [address], [id number] Clayton Bailey MD Notes/Report: 0 CREATININE, RANDOM URINE 44 20-275 mg/dL ALBUMIN, URINE 0.2 See Note: mg/dL Reference Range: Reference Range Not established ALBUMIN/CREATININE RATIO, RANDOM URINE 5 <30 mg/g creat The ADA defines abnormalities in albumin excretion as follows: Albuminuria Category Result (mg/g creatinine) Normal to Mildly increased <30 Moderately increased 30-299 Severely increased > OR = 300 The ADA recommends that at least two of three specimens collected within a 3-6 month period be abnormal before considering a patient to be within a diagnostic category. CBC (INCLUDES DIFF/PLT) (Q-6 399) (Not yet reviewed by provider) Interpretation: Performing Lab:[facility] ASHTONJyqhg1593 [address] [id number] Clayton Bailey MD Notes/Report: 0 WHITE BLOOD CELL COUNT 8.5 3.8-10.8 Thousand/ uL RED BLOOD CELL COUNT 4.29 3.80-5.10 Million/uL HEMOGLOBIN 14.3 11.7-15.5 g/dL HEMATOCRIT 44.8 35.0-45.0 % MCV 104.4 80.0-100.0 fL MCH 33.3 27.0-33.0 pg MCHC 31.9 32.0-36.0 g/dL For adults, a slight decrease in the calculated MCHC value (in the range of 30 to 32 g/dL) is most likely not clinically significant; however, it should be interpreted with caution in correlation with other red cell parameters and the patient's clinical condition. RDW 13.4 11.0-15.0 % PLATELET COUNT 246 140-400 Thousand/uL MPV 9.7 7.5-12.5 fL ABSOLUTE NEUTROPHILS 6613 2069-4000 cells/uL ABSOLUTE LYMPHOCYTES 7862 548-3431 cells/uL ABSOLUTE MONOCYTES 468 200-950 cells/uL ABSOLUTE EOSINOPHILS 111 15-500 cells/uL ABSOLUTE BASOPHILS 60 0-200 cells/uL NEUTROPHILS 77.8 LYMPHOCYTES 14.7 MONOCYTES 5.5 EOSINOPHILS 1.3 BASOPHILS 0.7 PTH, INTACT AND CALCIUM (Not yet reviewed by provider) Interpretation: Performing Lab:TP, [facility]-[id number] [address] [id number] Clayton Bailey MD Notes/Report: FASTING: UNKNOWN PARATHYROID HORMONE, INTACT 88 16-77 pg/mL Interpretive Guide Intact PTH Calcium ------- Normal Parathyroid Normal Normal Hypoparathyroidism Low or Low Normal Low Hyperparathyroidism Primary Normal or High High Secondary High Normal or Low Tertiary High High Non-Parathyroid Hypercalcemia Low or Low Normal High CALCIUM 7.1 8.6-10.4 mg/dL VITAMIN B12 (Not yet reviewe d by provider) Interpretation: Performing Lab:TP, [facility]-[id number] [address] [id number] Clayton Bailey MD Notes/Report: 0 VITAMIN B12 705 233-3008 pg/mL COMPREHENSIVE METABOLIC PANE L (Q-23383) (Not yet reviewed by provider) Interpretation: Performing Lab:TP, [facility]-[id number] [address], [id number] Clayton Bailey MD Notes/Report: 0 GLUCOSE 96 65-99 mg/dL Fasting reference interval UREA NITROGEN (BUN) 17 7-25 mg/dL [...] 41 10-35 U/L ALT 39 6-29 U/L TSH W/REFLEX TO FT4 (Not yet reviewed by provider) Interpretation: Performing Lab:TP [facility]-[id number] [address], [id number] Clayton Bailey MD Notes/Report: 0 TSH W/REFLEX TO FT4 2.27 0.40-4.50 mIU/L Reason For Referral Reason Medicare Unaligned pt needs 4 wheeled seated walker due to unsteady gait with falls PT H 60 / W 127 Diagnosis 1 Unsteadiness on feet (R26.81) Diagnosis 2 Unspecified fall, in itial encounter (W19.XXXA) Referral Organization [facility] Referring Provider First Name Keanu Referring Provider Last Name Kyler Referring Provider Speciality General Pr actice Referred Provider Archana Pimentel Referred Provider Specialty DME Procedure 1 Walker folding wheel ed w/o s (E0143) Procedure 2 SEAT ATTACHMENT WALK ER (E0156) Clinical Notes Pearl Hackett 05/19 01:35:49 PM >Medicare Unaligned verf in IE, faxed to Loren and notified patient, Pearl Hackett 07/07/2024 03:35:21 PM >confirmed equip delv 05/26/2024 Referral Priority Routine Referral Appointment Date 05/26/2024 Medications Medication SIG (Take, Route, Frequency, Duration) Notes Start Date End Date Status Adarsh KwikPen 100 UNIT/ML inject 12 units Subcutaneous at bedtime Not-Taking Pantoprazole Sodium 40 MG 1 tablet Orally Once a day Not-Taking Tiadylt ER 300 MG 1 capsule Orally Once a day Not-Taking Clobetasol Propionate 0.05 % 1 application Externally Twice a day for 90 days Active Digoxin 125 MCG 1/2 tablet Orally Once a day Active Creon 00242-02263 UNIT Take 1 capsule Orally Four times a day Active dilTIAZem HCl ER Coated Beads 300 MG TAKE 1 TABLET BY MOUTH DAILY Oral Every other day Active Gabapentin 100 MG TAKE 1 CAPSULE BY MOUTH THREE TIMES DAILY Oral Four times a day for 90 days Active Lisinopril 2.5 MG TAKE 1 TABLET BY MOUTH EVERY DAY Active Famotidine 20 MG TAKE 1 TABLET BY MOUTH DAILY. DISCONTINUE TAKING PANTOPRAZOLE. HAS AN INTERACTION WITH PLAVIX. START TAKING PEPCID INSTEAD Oral for 90 Days Active Metoprolol Tartrate 100 MG 1 tablet Orally Twice a day Active methylPREDNISolone 4 MG as directed Orally 025 Not-Taking tiZANidine HCl 4 MG 1-2 tablets as needed for pain/spasm Orally up to 3 times a day 05/19/2024 Not-Taking Eliquis 2.5 MG take 1 tablet Orally Twice a day Active Clopidogrel Bisulfate 75 MG TAKE 1 TABLET BY MOUTH DAILY Oral Active Tresiba FlexTouch 100 UNIT/ML 14 units Subcutaneous daily 03/11/2024 Active Furosemide 20 MG 3 tablet Orally Once a day B.I.D Active levoFLOXacin 750 MG TAKE 1 TABLET BY MOUTH EVERY 48 HOURS Oral for 29 Days Active NovoLOG FlexPen 100 UNIT/ML inject 5-13 units based on glucose Subcutaneous three times a day for 90 days amount base don 13 units tid Active Misc. Devices - as directeddaily for 90 days freestyle forrest 2 sensors e11.65 on insulin 05/28/2023 Active Social History Tobacco Use: Social History Observation Description Date Details (start date - stop date) Never Smoker NA - NA Sex Assigned At : Social History Observation Description Sex Assigned At Female Sexual History Question Answer Notes Had sex in the past 12 months (vaginal, oral, or anal)? No Have you ever had a Sexually transmitted disease ? No Last menstrual period n/a AUDIT (2018 Edition) Question Answer Notes How often do you have a drink containing alcohol ? Never How many drinks containing a lcohol do you have on a typical day when you are drinking? none How often do you have 5 or more drinks on one oc casion? Never How often during the last ye ar have you found that you were not able to stop drinking once you had started? Never How often during the last ye ar have you failed to do what was normally expected from you because of drinking? Never How often during the last ye ar have you needed a first drink in the morning to get yourself going after a heavy drinking session? none How often during the last ye ar have you had feeling of guilt or remorse after drinking? Never How often during the last ye ar have you been unable to remember what happened the night before because you had been drinking? Never Have you or someone else been injured as a resul t of your drinking? No Has a relative, friend, doct or or another health worker been concerned about your drinking or suggested you cut down? No Total Score 0 DAST-10 (2020 Edition) Question Answer Notes 1. Have you used drugs other than those required for medical reasons? No 2. Do you abuse more than one drug at a time? No 3. Are you always able to stop using drugs when you want to? No 4. Have you had blackouts or flashbacks as a res ult of drug use? No 5. Do you ever feel bad or guilty about your levi g use? No 6. Does your spouse (or pare nts) ever complain about your involvement with drugs? No 7. Have you neglected your family because of you r use of drugs? No 8. Have you engaged in illegal activities in ord er to obtain drugs? No 9. Have you ever experienced withdrawal symptoms (felt sick) when you stopped taking drugs? No 10. Have you had medical pro blems as a result of your drug use (e.g., memory loss, hepatitis, convulsions, bleeding etc.)? No Results: 1 Interpretation of Score: Low level Tobacco Control (Standard) Question Answer Notes Tobacco use: Nonsmoker Additional Findings: Tobacco non-user Current no nsmoker AUDIT-C (Standard) Question Answer Notes Did you have a drink containing alcohol in the p ast year? No Points 0 Interpretation Negative Section Notes: , [employer] supervisor [place] [employer] supervisor [place] , [employer] supervisor [place] , [employer] supervisor [place] [employer] supervisor [place] [employer] supervisor [place] [employer] supervisor [place] [employer] supervisor [place] [employer] supervisor [place] [employer] supervisor [place] [employer] supervisor [place] [employer] supervisor [place] [employer] supervisor [place] [employer] supervisor [place] [employer] supervisor [place] [employer] supervisor [place] [employer] supervisor [place] [employer] supervisor [place] [employer] supervisor [place] [employer] supervisor [place] [employer] supervisor [place] Problems Problem Type SNOMED Code ICD Code Onset Dates Problem Status W/U Status Risk Notes Problem [id number] 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) Active confirmed unchanged on exam Problem 69288815 Other specified hypothyroidism (E03.8) Active confirmed TSH back to normal on recent labs; she denies any potentially related symptoms Problem 72718177464429 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) Active confirmed Problem 21824488 Type 1 diabetes mellitus with diabetic neuropathy, unspecified (E10.40) Active confirmed Problem 310982612 Type 1 diabetes mellitus with diabetic polyneuropathy (E10.42) Active confirmed Problem 25286907 Hyperlipidemia, unspecified (E78.5) Active confirmed complication of DM; off statin, though, due to liver toxicity; recent labs somehow great Problem 94027361 Polyneuropathy in diseases classified elsewhere (G63) Active confirmed paresthesias per PE; now on gabapentin from provider in [place]; cause is multifactorial but indubitably contributed to by hypothyroidism Problem 01704913 Hypertensive heart and chronic kidney disease with heart failure and stage 1 through stage 4 chronic kidney disease, or unspecified chronic kidney disease (I13.0) Active confirmed on multiple meds but off ARB/SAÚL and only uses hydralazine when needed; managed by cardiology; they are not monitoring at home Problem 9510061835939 Atherosclerotic heart disease of [place] coronary artery without angina pectoris (I25.10) Active confirmed s/p cardiac stent; off statin due to liver toxicity; denies recent chest pains Problem 050618357 Toxic liver disease, 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) Active confirmed due to statins; taken off Rxs by cardiology; recent LFTs better Problem 15584841 Plantar fascial fibromatosis (M72.2) Active confirmed Problem 43560883 Unsteadiness on feet (R26.81) Active confirmed see hpi Problem 62835914 Age-related physical debility (R54) Active confirmed Problem 801976623 Adverse effect of antihyperlipide tiffanie and antiarterioscle rotic drugs, subsequent encounter (T46.6X5D) Active confirmed manifested as liver toxicity Problem 264141815 intermediate frame tender (current) use of anticoagulants (Z79.01) Active confirmed on eliquis Problem 420018664 intermediate frame tender (current) use of insulin (Z79.4) Active confirmed Problem 552896317154341 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) Active confirmed Problem 067922883 Pacemaker (Z95.0) Active confirmed s/p ablation for afib; monitored/manag ed by cardiology Problem 97686641 Secondary hypercoagulable state (D68.69) Active confirmed due to a fib; on eliquis; managed by cardiology Problem 324852912 Allergic conjunctivitis of both eyes (H10.13) Active confirmed Problem 30766702 Exocrine pancreatic insufficiency (K86.81) Active confirmed Problem 83633098 Other specified diseases of pancreas (K86.89) Active confirmed 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 due to looking abnormal when having gallbladder removed; insufficiency and DM since Problem 42777732 Sleep apnea, unspecified type (G47.30) Active confirmed Problem 823920768 Chronic diastolic heart failure (I50.32) Active confirmed per cardiology note 05/11/20; on BB only as apparently no longer on digoxin; also out of diuretics as per HPI; also still reportedly has device that measures fluid retention daily that gets reported to cardiology; Problem 95154257 Pulmonary hypertension (I27.20) Active confirmed per ECHO results from cardio in [place]; managed by them; subjectively stable Problem 0273657 DIABETES MELLITUS DUE TO UNDERLYING CONDITION WITH DIABETIC CHRONIC KIDNEY DISEASE (E08.22) Active confirmed 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; managed by endocrine in [place] only now as she didn't like [place] provider she saw last year; supposed to be on [place] insulin daily and sliding scale rapid acting insulin; recent FBG horrible at 302; A1C up to 10.7; she apparently was without both for a week Problem 1952787 DIABETES MELLITUS DUE TO UNDERLYING CONDITION WITH DIABETIC PERIPHERAL ANGIOPATHY WITHOUT GANGRENE (E08.51) Active confirmed 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; managed by endocrine in [place] only now as she didn't like [place] provider she saw last year; supposed to be on LA insulin daily and sliding scale rapid acting insulin; recent FBG horrible at 302; A1C up to 10.7; she apparently was without both for a week; PAD by hx; s/p b/l femoral stents; she in off statin as above; she denies claudication; she is on eliquis but not an antiplatelet Problem 8892491 DIABETES MELLITUS DUE TO UNDERLYING CONDITION WITH HYPERGLYCEMIA (E08.65) Active confirmed 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; managed by endocrine [place] only now as she didn't like [place] provider she saw last year; supposed to be on LA insulin daily and sliding scale rapid acting insulin; recent FBG horrible at 302; A1C up to 10.7; she apparently was without both for a week Problem 8221596 DIABETES MELLITUS DUE TO UNDERLYING CONDITION WITH OTHER SPECIFIED COMPLICATION (E08.69) Active confirmed 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; managed by endocrine in [place] only now as she didn't like [place] provider she saw last year; supposed to be on LA insulin daily and sliding scale rapid acting insulin; HbA1c not below 9 for months; ; has hyperlipidemia as complication Problem 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 by functional hypoperfusion of kidneys caused by CHF; currently fluid balanced on daily diuretics Problem PERIPHERAL VASCULAR DISEASE, UNSPECIFIED (I73.9) Active confirmed Problem 757798918 Chronic atrial fibrillation, unspecified (I48.20) Active confirmed managed by cardio; s/p ablation w/ pacemaker implant; rate controlled on BB and diltiazem anticoagulated on eliquis; Problem 10384955 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) Active confirmed due to terribly uncontrolled DM2; recent pneumonia per HPI Problem 805817836 Chronic kidney disease, stage 3a (N18.31) Active confirmed Problem 846481409 Chronic kidney disease, stage 3b (N18.32) Active confirmed due to DM2; remains off ARB and SAÚL; recent 47; ACR up to 70; \ Problem 051798840 Gastroesophagea l reflux disease, unspecified whether esophagitis present (K21.9) Active confirmed on PPI; nafisa es any recent symptoms Vital Signs Heart Rate 78 /min 07/14/2024 Temperature 97.7 degrees Fahrenheit 07/09/2024 Respiratory Rate 16 /min 03/11/2024 Blood pressure diastolic 74 mm Hg 07/14/2024 Oximetry 97 % 07/14/2024 Height 60.25 in 07/14/2024 Blood pressure systolic 122 mm Hg 07/14/2024 Weight 129 lbs 07/14/2024 BMI 24.98 kg/m2 07/14/2024 Procedures Procedure Date Ordered Date Performed Result Body Sit e EYE EXAM 03/20/2024 03/20/2024 N/A Dilated or Retinal Eye Exam 07/22/2024 07/22/2024 N/A Encounters Encounter Location Date Provider Diagnosis [address] [address] 03/11/2024 Keanu Chávez [address] [address] 03/17/2024 Marcello Culp [facility] [address] [place] [address] 03/24/2024 Keanu Chávez [facility] [address] [address] 03/24/2024 Keanu Chávez [facility] [address] [place] [address] 06/11/2024 Keanu Chávez Chronic kidney disea se, stage 3b N18.32 [facility] [address] [place] [address] 07/02/2024 Keanu Chávez [facility] [address] [place] [address] 07/02/2024 Keanu Chávez [address] [address] 07/21/2024 Keanu Chávez [facility] [address] [place] [address] 03/11/2024 Marcello Culp Type 1 diabetes elicia itus with diabetic neuropathy, unspecified E10.40 ; DIABETES MELLITUS DUE TO UNDERLYING CONDITION WITH DIABETIC CHRONIC KIDNEY DISEASE E08.22 ; REPAIRER MAINTENANCE BUILDING (CURRENT) USE OF INSULIN Z79.4 ; Presence of other specified devices Z97.8 ; Hyperlipidemia, unspecified E78.5 ; Immunodeficiency due to conditions classified elsewhere D84.81 ; Age-related physical debility R54 and Exocrine pancreatic insufficiency K86.[address] [address] 07/09/2024 RANJEET ELIEL Hypertensive heart a nd chronic kidney disease with heart failure and stage 1 through stage 4 chronic kidney disease, or unspecified chronic kidney disease I13.0 ; Type 1 diabetes mellitus with diabetic neuropathy, unspecified E10.40 ; Immunodeficiency due to conditions classified elsewhere D84.81 ; Secondary hypercoagulable state D68.69 ; Chronic atrial fibrillation, unspecified I48.20 ; DIABETES MELLITUS DUE TO UNDERLYING CONDITION WITH OTHER SPECIFIED COMPLICATION E08.69 ; Chronic diastolic heart failure I50.32 ; SECONDARY HYPERALDOSTERONISM E26.1 ; Pacemaker Z95.0 ; PERIPHERAL VASCULAR DISEASE, UNSPECIFIED I73.9 ; Chronic kidney disease, stage 3a N18.31 ; INTERMEDIATE (CURRENT) USE OF INSULIN Z79.4 ; Hyperlipidemia, unspecified E78.5 ; Type 1 diabetes mellitus with diabetic chronic kidney disease E10.22 ; Atherosclerotic heart disease of [place] coronary artery without angina pectoris I25.10 ; Exocrine pancreatic insufficiency K86.81 ; Encounter for screening, unspecified Z13.9 and Body mass index [BMI] 25.0-25.9, adult Z68.25 [facility] [address] [place] [address] 07/14/2024 Marcello Culp Chronic kidney disea se, stage 3b N18.32 ; DIABETES MELLITUS DUE TO UNDERLYING CONDITION WITH DIABETIC CHRONIC KIDNEY DISEASE E08.22 ; Type 1 diabetes mellitus with diabetic polyneuropathy E10.42 ; Presence of other specified devices Z97.8 ; senior care (current) use of insulin Z79.4 ; Hyperlipidemia, unspecified E78.5 ; Exocrine pancreatic insufficiency K86.81 and Immunodeficiency due to conditions classified elsewhere D84.[address] [place] [address] 07/03/2024 Keanu Chávez Type 1 diabetes elicia [...] and Polyneuropathy in diseases classified elsewhere G63 [address] [place] [address] 03/24/2024 Chica Berad Plantar fascial fibromatosis M72.2 ; Secondary hypercoagulable state D68.69 ; Chronic atrial fibrillation, unspecified I48.20 ; DIABETES MELLITUS DUE TO UNDERLYING CONDITION WITH OTHER SPECIFIED COMPLICATION E08.69 ; Chronic diastolic heart failure I50.32 ; SECONDARY HYPERALDOSTERONISM E26.1 ; Pacemaker Z95.0 ; PERIPHERAL VASCULAR DISEASE, UNSPECIFIED I73.9 ; Hypertensive heart and chronic kidney disease with heart failure and stage 1 through stage 4 chronic kidney disease, or unspecified chronic kidney disease I13.0 and Chronic kidney disease, stage 3a N18.[address] [place] [address] 05/07/2024 Keanu Chávez Encounter for screen ing, unspecified Z13.9 ; Hemorrhage of anus and rectum K62.5 and Immunodeficiency due to conditions classified elsewhere D84.[address] [place] [address] 05/19/2024 Keanu Chávez Unspecified fall, initial encounter W19.XXXA ; Unsteadiness on feet R26.81 ; Myalgia, unspecified site M79.10 and Encounter for screening, unspecified Z13.9 Assessments Encounter Date Diagnosis (ICD Code) Assessment Notes Treatment Notes Treatment Clinical Notes Section Notes 03/11/2024 Type 1 diabetes mellitus with diabetic neuropathy, unspecified (ICD-10 - E10.40) We consider her a type I given her need for exocrine replacement alsoRecent point of service glycohemoglobin 9.7 We did discuss goals, but be impractical and advanced age multiple medical problems not really symptomatic from hyperglycemia, avoiding hypoglycemia we could just leave her on her current regimen we can adjust the insulins up if needed she has a supportive family also 03/11/2024 DIABETES MELLITUS DUE TO UNDERLYING CONDITION WITH DIABETIC CHRONIC KIDNEY DISEASE (ICD-10 - E08.22) 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; managed by endocrine in [place] only now as she didn't like [place] provider she saw last year; supposed to be on LA insulin daily and sliding scale rapid acting insulin; recent FBG horrible at 302; A1C up to 10.7; she apparently was without both for a week We continue to follow her renal function she is on the lisinopril again I would not be adding SGLT2 inhibitor or GLP-1 agonist even fenenerone currently just monitor her and see how she does 03/24/2024 Secondary hypercoagulable state (ICD-10 - D68.69) due to a fib; on eliquis; managed by cardiology due to afib, on eliquis, managed by software administrator 03/24/2024 Plantar fascial fibromatosis (ICD-10 - M72.2) We discussed treatment options for plantar fasciitis including surgery, injection, conservative measures. Will recommend conservative therapy for now. I did recommende and demonstrate stretching exercises to perform. They can also use heat or ice to help with the pain. A roller massager or frozen water bottle can be used. The patient should also consider well-fitting shoes or insoles. They should not walk while barefoot. If conservative measures do not work, could consider podiatry evaluation for injection or even surgical repair 05/19/2024 Unsteadiness on feet (ICD-10 - R26.81) see hpi 06/11/2024 Chronic kidney disease, stage 3b (ICD-10 - N18.32) 07/03/2024 Type 1 diabetes mellitus with diabetic neuropathy, unspecified (ICD-10 - E10.40) 05/07/2024 Encounter for screening, unspecified (ICD-10 - Z13.9) 05/07/2024 Hemorrhage of anus and rectum (ICD-10 - K62.5) see hpi see hpi 05/19/2024 Unspecified fall, initial encounter (ICD-10 - W19.XXXA) see hpi 07/09/2024 Hypertensive heart and chronic kidney disease with heart failure and stage 1 through stage 4 chronic kidney disease, or unspecified chronic kidney disease (ICD-10 - I13.0) on multiple meds but off ARB/SAÚL and only uses hydralazine when needed; managed by cardiology; they are not monitoring at home chronic, stable. CHF controlled, gfr better (46), continue small dose of lisinopril as she is doing and monitor bp, avoid nephrotoxins and monitor PTH. monitor 07/09/2024 Type 1 diabetes mellitus with diabetic neuropathy, unspecified (ICD-10 - E10.40) We consider her a type I given her need for exocrine replacement alsoRecent A1C 9.6%. Follows with Endo. States she was told she can eat whatever she wants. 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; managed by endocrine in [place] only now as she didn't like [place] provider she saw last year; supposed to be on LA insulin daily and sliding scale rapid acting insulin; recent FBG horrible at 302; A1C up to 10.7; she apparently was without both for a week Her renal function is remaining stable, given her advanced age, patient preference I think she is doing well,I left her insulins the way they are though her A1c is 9.6 we can hopefully bring it down by slightly increasing her Tresiba yet avoid hypoglycemia so she will go back to 18 we will see how she does, I took the liberty of saying take the furosemide 40 mg in the morning but the other 20 mg around supper so it is out of her system she is having so much nocturia she is sleepy during the day 07/14/2024 Chronic kidney disease, stage 3b (ICD-10 - N18.32) due to DM2; remains off ARB and SAÚL; recent 47; ACR up to 70; \ So far holding her own on the current approach though she is receiving more diuretics now 07/14/2024 Type 1 diabetes mellitus with diabetic polyneuropathy (ICD-10 - E10.42) The neuropathy itself not been a major problem using gabapentin no infection history she has good nail care 05/19/2024 Myalgia, unspecified site (ICD-10 - M79.10) see hpi 05/07/2024 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 BUILDING (CURRENT) USE OF INSULIN (ICD-10 - Z79.4) supposed to be on daily LA insulin and sliding scale rapid acting insulin She has the basal bolus regimen with mealtime insulin correction which I think still reasonable, she would not benefit from any other intervention at this time except continuing insulin 03/24/2024 DIABETES MELLITUS DUE TO UNDERLYING CONDITION WITH OTHER SPECIFIED COMPLICATION (ICD-10 - E08.69) 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; managed by endocrine in [place] only now as she didn't like [place] provider she saw last year; supposed to be on LA insulin daily and sliding scale rapid acting insulin; HbA1c not below 9 for months; ; has hyperlipidemia as complication uncontrolled, on insulin, should do better with diet, sees endo 07/03/2024 Hyperlipidemia, unspecified (ICD-10 - E78.5) 03/11/2024 Presence of other specified devices (ICD-10 - Z97.8) The forrest 2 has been helpful especially avoiding hypoglycemia and she does her correction we will see what her glycohemoglobin does over time but again current regimen is reasonable 07/09/2024 Secondary hypercoagulable state (ICD-10 - D68.69) due to a fib; on eliquis; managed by cardiology due to afib, on eliquis, managed by software administrator. monitor 05/19/2024 Encounter for screening, unspecified (ICD-10 - Z13.9) 07/14/2024 Presence of other specified devices (ICD-10 - Z97.8) The reader has been helpful especially avoiding hypoglycemia, I asked her to bring with it with her she may need to upgrade to the 3+ forrest depending on availability but this would not change anything except a new reader 07/14/2024 intermediate frame tender (current) use of insulin (ICD-10 - Z79.4) Basically were using the basal insulin with correction I think this is reasonable given her situation advanced age preference continue to monitor 07/09/2024 Chronic atrial fibrillation, unspecified (ICD-10 - I48.20) managed by cardio; s/p ablation w/ pacemaker implant; rate controlled on BB and diltiazem anticoagulated on eliquis; on diltiazem, and eliquis, managed by software administrator, stable 03/24/2024 Chronic diastolic heart failure (ICD-10 - I50.32) per cardiology note 05/11/20; on BB only as apparently no longer on digoxin; also out of diuretics as per HPI; also still reportedly has device that measures fluid retention daily that gets reported to cardiology; euvolemic on furosemide, low salt diet recommended 07/03/2024 Body mass index [BMI] 23.0-23.9, adult (ICD-10 - Z68.23) 03/11/2024 Hyperlipidemia, unspecified (ICD-10 - E78.5) complication of DM; off statin, though, due to liver toxicity; recent labs somehow great She apparently developed liver abnormalities, simply follow her lab along 03/11/2024 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) due to terribly uncontrolled DM2; recent pneumonia per HPI Though the glucoses could make her more prone to infection, poor wound healing were not trying to lower her sugars much given her advanced age and frailty 03/24/2024 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 CHF; currently fluid balanced on daily diuretics due to CHF, on daily diuretics 07/03/2024 Chronic kidney disease, stage 3a (ICD-10 - N18.31) 07/09/2024 DIABETES MELLITUS DUE TO UNDERLYING CONDITION WITH OTHER SPECIFIED COMPLICATION (ICD-10 - E08.69) 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; managed by endocrine in [place] only now as she didn't like [place] provider she saw last year; supposed to be on LA insulin daily and sliding scale rapid acting insulin; HbA1c not below 9 for months; ; has hyperlipidemia as complication uncontrolled, on insulin, should do better with diet, sees endo 07/14/2024 Hyperlipidemia, unspecified (ICD-10 - E78.5) complication of DM; off statin, though, due to liver toxicity; recent labs somehow great Reasonable results 07/14/2024 Exocrine pancreatic insufficiency (ICD-10 - K86.81) She is using her Creon sign has not been a problem from the point of view 07/09/2024 Chronic diastolic heart failure (ICD-10 - I50.32) per cardiology note 05/11/20; on BB only as apparently no longer on digoxin; also out of diuretics as per HPI; also still reportedly has device that measures fluid retention daily that gets reported to cardiology; chronic. euvolemic on furosemide, low salt diet recommended. monitor 07/03/2024 Polyneuropathy in diseases classified elsewhere (ICD-10 - G63) 03/24/2024 Pacemaker (ICD-10 - Z95.0) s/p ablation for afib; monitored/manage d by cardiology monitored by software administrator 03/11/2024 Age-related physical debility (ICD-10 - R54) Generally she is stable with help from her family, advised fall precautions, she generally has good nutrition but with the ice cream, 03/24/2024 PERIPHERAL VASCULAR DISEASE, UNSPECIFIED (ICD-10 - I73.9) by exam, she is on statin, mobility is impaired, she should control her DM better 03/11/2024 Exocrine pancreatic insufficiency (ICD-10 - K86.81) She is doing well with Creon does not have a lot of GI symptoms continue replacement 07/09/2024 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 CHF; currently fluid balanced on daily diuretics due to CHF, on daily diuretics 07/14/2024 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) due to terribly uncontrolled DM2; recent pneumonia per HPI At this point the high sugars could lead to poor wound healing making her more prone to infection but we need to balance this against her advanced age 0307/09/2024 Pacemaker (ICD-10 - Z95.0) s/p ablation for afib; monitored/manage d by cardiology monitored by software administrator 03/24/2024 Hypertensive heart and chronic kidney disease with heart failure and stage 1 through stage 4 chronic kidney disease, or unspecified chronic kidney disease (ICD-10 - I13.0) on multiple meds but off ARB/SAÚL and only uses hydralazine when needed; managed by cardiology; they are not monitoring at home bp controlled, CHF controlled, gfr mildly better, continue small dose of lisinopril as she is doing and monitor bp, avoid nephrotoxins and monitor PTH 03/24/2024 Chronic kidney disease, stage 3a (ICD-10 - N18.31) gfr better at 47, continue taking lisinopril 2.5, good bp control, should do much better with her diabetes 07/09/2024 PERIPHERAL VASCULAR DISEASE, UNSPECIFIED (ICD-10 - I73.9) by exam, she is on statin, mobility is impaired, she should control her DM better. monitor 07/09/2024 Chronic kidney disease, stage 3a (ICD-10 - N18.31) chronic. recent gfr better (46), continue SAÚL, good bp control, should do much better with her diabetes. monitor 07/09/2024 INTERMEDIATE (CURRENT) USE OF INSULIN (ICD-10 - Z79.4) supposed to be on daily LA insulin and sliding scale rapid acting insulin She has the basal bolus regimen with mealtime insulin correction which I think still reasonable, she would not benefit from any other intervention at this time except continuing insulin 07/09/2024 Hyperlipidemia, unspecified (ICD-10 - E78.5) complication of DM; off statin, though, due to liver toxicity; recent labs somehow great chronic. encouraged healthy diet and exercise as tolerates. She apparently developed liver abnormalities, simply follow her lab along 07/09/2024 Type 1 diabetes mellitus with diabetic chronic kidney disease (ICD-10 - E10.22) DM with CKD. continue SAÚL. encouraged improved glucose control, hydration. monitor 07/09/2024 Atherosclerotic heart disease of [place] coronary artery without angina pectoris (ICD-10 - I25.10) s/p cardiac stent; off statin due to liver toxicity; denies recent chest pains chronic. per cardio notes (2023). encouraged risk reduction. continue statin. monitor 07/09/2024 Exocrine pancreatic insufficiency (ICD-10 - K86.81) She is doing well with Creon does not have a lot of GI symptoms continue replacement. Follows with Endo 07/09/2024 Encounter for screening, unspecified (ICD-10 - Z13.9) 07/09/2024 Body mass index [BMI] 25.0-25.9, adult (ICD-10 - Z68.25) 05/19/2024 Other see hpi Plan Of Treatment Pending Test Test Name Order Date Hemoglobin A1c ([id number], Q-496) 024 Hemoglobin A1c ([id number], Q-496) 025 Hemoglobin A1c (L-210052, Q-496) 025 Albumin, Random Urine with Creatinine PTH, INTACT AND CALCIUM 07/03/2024 PTH, INTACT AND CALCIUM 07/03/2024 LIPID PANEL (Q-7600) 03/11/2024 LIPID PANEL (Q-7600) 07/03/2024 COMPREHENSIVE METABOLIC PANEL (Q-26757) 03/11/2024 COMPREHENSIVE METABOLIC PANEL (Q-45467) 07/03/2024 COMPREHENSIVE METABOLIC PANEL (Q-10176) 07/14/2024 MAGNESIUM 07/14/2024 PHOSPHATE ( PHOSPHORUS) 07/14/2024 CBC (H/H, RBC, INDICES, WBC, PLT) 2023 CBC (INCLUDES DIFF/PLT) (Q-6399) 025 VITAMIN B12 07/03/2024 TSH W/REFLEX TO FT4 03/11/2024 TSH W/REFLEX TO FT4 07/03/[address]PROMISED [address] ABD&PELVIS W/CONT 05/21/2019 Next Appt Details Provider Name:Marcello Culp, 03/02/2025 11:00:00 AM, [address] [place] [address], [place] [address], [place], [address], Insurance Providers Payer Name Payer Address Payer Phone Subscriber Number Group Number Insured Name Patient Relationship to Insured Coverage Start Date Coverage End Date Medicare Unaligned [address] JAKE Costello [phone] [id number] Dana Griffiths Self - patient is the insured [address] [place] [address] [address] [place] [address] [id number] Farooq [id number] Self - patient is the insured Medical (General) History Medical History History ICD Code whipple 1999 AFib PVD CAD DM2 GERD CHF PAD Neuropathy Surgical History Surgery Date(Month/Year) femeral bypass 2022 breast ( L) biopsy-benign whipple pacemaker coronary stents iliac stents bilateral Hospitalization History Reason Date(Month/Year) [facility] [place] pneumonia 04/21 Multiple seziure like episode 09/2023 [facility], Mini Stroke 08/11/2023 [facility] [place] influenza 04/21
== END 2024-10-07 10:30 | disposition home or self-care (01) ==
LOC: HO.ENCR 09:43
PROVIDERS: PCP Internal Medicine; Visit Provider Physician Assistant Medical
DX: E11.22 Type 2 diabetes mellitus with diabetic chronic kidney disease (principal); N18.30 Chronic kidney disease, stage 3 unspecified; S36.209S Unspecified injury of unspecified part of pancreas, sequela; Z86.39 Personal history of other endocrine, nutritional and metabolic disease

== ENCOUNTER → 2024-10-07 09:43 | Outpatient (BNVA) | payer MEDICARE, SELFPAY | PROVIDERS: PCP Internal Medicine; Visit Provider Physician Assistant Medical | DX: E11.22 Type 2 diabetes mellitus with diabetic chronic kidney disease (principal); N18.30 Chronic kidney disease, stage 3 unspecified; E13.9 Other specified diabetes mellitus without complications; S36.209S Unspecified injury of unspecified part of pancreas, sequela; Z86.39 Personal history of other endocrine, nutritional and metabolic disease; Z79.4 Long term (current) use of insulin | CPT/HCPCS: 82947; 83036; 99212 ==

== ENCOUNTER 2024-11-11 11:06 | Outpatient (AMB) | payer MEDICARE, SELFPAY ==
--- NOTE | 2024-11-11 11:10 | MHC.OFFVIS ---
Vital Signs 11/11/24 11:18 Height 5 ft 1 in Weight 134 lb 0.657 oz BMI 25.3 BP 100/62 Blood Pressure Location Rt brachial Position Sitting Pulse 72 Pulse Source Pulse Oximeter Pulse Oximetry (%) 97 Oxygen Delivery Method Room Air Intake Visit Reasons: diabetes Intake Note: Patient present today to follow up on Type 2 Diabetes Mellitus. Last Diabetic Eye exam: approx in Mar 2024, has yearly appointments. 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 Random Glucose: 184 mg/dl HgA1C: 10.1% 10/07/2024 Foreclosure Clerk Required: No Accompanied by: Self / Same As Patient Allergies tramadol Allergy (Unknown, Verified 11/11/24 11:13) Unknown Medication List - Last Reconciled 11/11/24 by JAKE Vaca alendronate 70 mg PO QWEEK apixaban 2.5 mg PO BID aspirin 81 mg PO DAILY blood sugar diagnostic As directed blood sugar diagnostic (FreeStyle Precision Toney Strips) As directed 4x/day clobetasol 0.05% 1 appl topical BID digoxin 62.5 mcg PO DAILY diltiazem HCl CD 300 mg PO DAILY famotidine 20 mg PO DAILY FreeStyle Serafin 2 Sensor (flash glucose sensor) Every 14 days NS furosemide 20 mg PO DAILY gabapentin 100 mg PO TID glucagon 3 mg/actuation (Baqsimi) 3 mg intranasal ONCE hydralazine 75 mg PO BID insulin aspart U-100 Administer 5 units subcutaneously 3 times daily 5-10 minutes before meals insulin degludec (Tresiba FlexTouch U-200 insulin) 14 units (0.07 mL) subcut BEDTIME levofloxacin mg PO edqloe-amazogko-atxhokg 24,000-76,000 -120,000 unit (Creon) 1 cap PO BID lisinopril 2.5 mg PO DAILY metoprolol tartrate 150 mg PO pantoprazole 40 mg PO DAILY pen needle, diabetic (BD Kerry 2nd Gen Pen Needle) Use to administer insulin four times daily. 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 Per previous notes she has pancreatic diabetes with multiple complications and no beta cell reserve likely due to pancreatic surgery. She spends 6 months in [place]. She returned to [place] in August 2024. 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 Hemoglobin A1c 10.1% with target <8.5%. 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. [phone]. Culp Reviewed Serafin 3 report October 29 to November 11 CGM active 65% Average glucose 185 Glucose variability 47.8% Very high 24% High 21% Target range 49% Low 2% Very low 4% She experiences hypoglycemia between 9am and 2 pm. She has low blood sugars down to 40. Pattern of hyperglycemia during the day and overnight. In the past she had hypoglycemia with a glucose level of 40 and had no symptoms with it. At her previous appointment she said that she still had the prescription for Baqsimi at home, but today she says she does not have it. Micro and macrovascular complications: nephropathy, neuropathy (plantar surfaces of feet). Diabetes medications: Current regimen: Insulin aspart 10 units before breakfast and lunch and 5 units before dinner Basaglar 14 units at night She reports eating 3 meals per day. She eats ice cream regularly. Ophthalmology evaluation: Done in [place] during the past 12 months. No retinopathy per patient. ROS: Constitutional: No unexplained weight loss, fatigue, fever or chills. Eyes: No vision changes, blurry vision, double vision, eye pain, eye redness, eye discharge. Respiratory: No shortness of breath, cough or sputum production. Cardiovascular: No chest pain, chest pressure or chest discomfort. No palpitations or pedal edema. Gastrointestinal: No anorexia, nausea, vomiting or diarrhea. No abdominal pain Neurologic: No headache, dizziness, syncope, weakness Endocrine: No cold or heat intolerance. No polyuria or polydipsia. Physical exam: Constitutional: Alert, in no distress. Eyes: Pupils are equal, round and reactive to light. Extraocular muscles intact. Neck: Supple, Full range of motion. No lymphadenopathy. Respiratory: Clear to auscultation. Cardiovascular: S1 S2 regular. No murmurs. Right foot: Warm and well perfused. No clubbing, cyanosis or edema. Intact DP pulse. Decreased vibratory sensation. Intact sensation to monofilament. No open wounds. Left foot: Warm and well perfused. No clubbing, cyanosis or edema. Intact DP pulse. Decreased vibratory sensation. Intact sensation to monofilament. No open wounds. 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 Social History Household Members: Other Household Members Other:: Lives with [facility] Alcohol intake: former Patient Tobacco Use Status: Former Tobacco user Physical Exam Vital Signs: Last Vital Signs Pulse 72 11/11/24 11:18 BP 100/62 11/11/24 11:18 Pulse Ox 97 11/11/24 11:18 Oxygen Delivery Method Room Air 11/11/24 11:18 BMI result Body Mass Index 25.3 Office Procedures Glucose Monitoring Details Details: See HPI 90201 - Glucose monitoring, continuous-physician I&R Procedure code (CPT) selection complete Results Reviewed Results Reviewed: See scanned results from January 2024 Assessment & Plan Assessment & Plan (1) 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: Code(s): E13.9 - Other specified diabetes mellitus without complications; S36.209S - Unspecified injury of unspecified part of pancreas, sequela Category: Medical (2) CKD stage 3 due to type 2 diabetes mellitus: Code(s): E11.22 - Type 2 diabetes mellitus with diabetic chronic kidney disease; N18.30 - Chronic kidney disease, stage 3 unspecified Category: Medical (3) History of hypoglycemia: Code(s): Z86.39 - Personal history of other endocrine, nutritional and metabolic disease Category: Medical Plan 84-year-old female with uncontrolled diabetes mellitus secondary to pancreatic injury on basal-bolus insulin. She has frequent hypoglycemia. She has prescription of glucose tablets with her today. I sent a refill on Baqsimi. This is medically necessary as she has had severe hypoglycemia with no symptoms historically. Reviewed written instructions for treatment of hypoglycemia. Make sure to check blood sugar in 15 minutes to see if it is rising. If you have no symptoms of hypoglycemia and the CGM alerts you check a fingerstick glucose. She also says she does not have a glucometer at home today so I prescribed this as well as lancets and test strips. Administer insulin aspart 5 units 3 times daily 5-10 minutes before meals. Do not administer if blood sugar is less than 120. Switch Basaglar 14 units every evening to Tresiba 14 units every evening. This is a preferred long-acting insulin in patients prone to hypoglycemia. I will advance her to the Serafin 3 Plus CGM. Refer to nurse educator for CGM teaching. She will have her lab work done today as she did not have it done in [place]. Follow up in 2-4 weeks for diabetic management. Written instructions were provided to the patient. Orders: Orders C Peptide Today E13.9 - Other specified diabetes mellitus without complications, S36.209S - Unspecified injury of unspecified part of pancreas, sequela AMB Glucose Monitoring Today E11.9 - Type 2 diabetes mellitus without complications Referrals Diabetes Education Referral E11.65 - Type 2 diabetes mellitus with hyperglycemia Medications: New blood sugar diagnostic (OneTouch Verio test strips) Use as directed to check blood glucose four daily. 100 ea 5RF E13.9 - Other specified diabetes mellitus without complications, S36.209S - Unspecified injury of unspecified part of pancreas, sequela blood-glucose meter (OneTouch Verio Flex Meter) Use as directed 1 ea 0RF E11.21 - Type 2 diabetes mellitus with diabetic nephropathy insulin degludec (Tresiba FlexTouch U-200 insulin) Replaces Basaglar 14 units (0.07 mL) subcut BEDTIME 9 mL 5RF blood-glucose,telephoner,cont (FreeStyle Serafin 3 Superior) Use daily to monitor blood glucose levels continuously. 1 ea 0RF blood-glucose sensor (FreeStyle Serafin 3 Plus Sensor device) Apply 1 new sensor every 15 days as directed to monitor blood glucose continuously. 2 ea 11RF lancets ([facility] PartnersTouch Delica Plus Lancet) Use as directed to check blood glucose four times daily. 100 ea 5RF E13.9 - Other specified diabetes mellitus without complications, S36.209S - Unspecified injury of unspecified part of pancreas, sequela Refilled glucagon 3 mg/actuation (Baqsimi) 3 mg (one actuation) into a single nostril; if no response, may repeat in 15 minutes using a new intranasal device. 3 mg intranasal ONCE 2 ea 0RF Discontinued FreeStyle Serafin 2 Sensor (flash glucose sensor) Discontinued Reason: Doctor's Order Every 14 days 2 ea 6RF NS E11.65 - Type 2 diabetes mellitus with hyperglycemia blood sugar diagnostic (FreeStyle Precision Toney Strips) Discontinued Reason: Doctor's Order As directed 4x/day 100 ea 11RF E11.65 - Type 2 diabetes mellitus with hyperglycemia Patient Instructions: Switch Basaglar 14 units nightly to Tresiba insulin 14 units nightly. Administer insulin aspart 5 units 3 times daily 5-10 minutes before meals. Do not administer if blood sugar is less than 120. If you experience low blood sugar (under 70), treat this by eating a chewable fruit candy like skittles or jelly beans (about 8 pieces), 4 ounces (1/2 cup) of fruit juice (not diet), 1 tablespoon of honey or 4 glucose tablets. If your blood sugar is under 55, take double the amount of one of the above. Recheck your blood sugar in 15 minutes to make sure it is rising. If your continuous glucose monitor alerts you to a low blood sugar and you do not have any symptoms use it a fingerstick glucometer to confirm the low blood sugar. I am sending the prescription for the Serafin 3 plus continuous glucose monitoring system because they are discontinuing the Serafin 2. 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
[2024-11-11 11:18] VITALS: BP 100/62; PULSE 72; O2SAT 97; BMI 25.3
[2024-11-11 11:24] LABS: Glucose, Whole Blood 184 mg/dL (60-115)
--- OUTSIDE RECORDS SUMMARY | 2024-11-11 12:31 | XMS_ITS | Clinical Summary ---
Author Organization [facility] Address [address] [place] [phone] Phone Care Team Providers Care Line Maintainer Section Name Role Phone Mario Parker MD Primary Care Provider Allergies Active Allergy Reactions Criticality Noted Date Comments Tramadol Nausea And Vomiting 12/29/2009 dizziness Medications GENERIC EXTERNAL MEDICATION Nifedipine 0.3% ointment Apply as a thin film TID to the perianal skin 1 Active glucose blood test strip Inject 1 Lancet into the skin 3 (three) times a day. 0 Active glucose blood test strip Use to test blood sugar three times daily insulin dependant pt 9 Active OneTouch Ultra Test test strip Inject 1 Lancet into the skin 3 (three) times a day. 1 Active apixaban (Eliquis) 2.5 mg tablet Take 1 tablet (2.5 mg total) by mouth 2 (two) times a day. 1 Active atorvastatin (LIPITOR) 20 mg tablet Take 1 tablet (20 mg total) by mouth 1 (one) time each day. 1 Active clopidogreL (PLAVIX) 75 mg tablet Take 1 tablet (75 mg total) by mouth 1 (one) time each day. 3 Active dilTIAZem CD (CARDIZEM CD) 300 mg 24 hr capsule Take 1 capsule (300 mg total) by mouth. Active dilTIAZem CD (CARDIZEM CD) 300 mg 24 hr capsule Take 1 capsule (300 mg total) by mouth 1 (one) time each day. 1 Active fluticasone propionate (FLONASE) 50 mcg/actuation nasal spray INSTILL 1 SPRAY INTO EACH NOSTRIL BID 0 Active furosemide (LASIX) 20 mg tablet Take 1 tablet (20 mg total) by mouth 1 (one) time each day. 1 Active hydrALAZINE (APRESOLINE) 50 mg tablet Take 1.5 tablets (75 mg total) by mouth 2 (two) times a day. 1 Active hydrocortisone (ANUSOL-HC) 2.5 % rectal cream Apply 5 g topically. 0 Active insulin aspart (NovoLOG Flexpen U-100 Insulin) 100 unit/mL (3 mL) injection pen Inject 5-18 units into the skin tid per sliding scale: BS 1-150 0u. 151-200 5u. 201-250 7u. 251-300 9u. 301-350 11u. 351-400 13u. 401-450 15u. 451-500 17u. 501< 18u. 1 Active insulin detemir (Levemir FlexPen) 100 unit/mL (3 mL) injection pen Inject 10 Units under the skin. 0 Active insulin glargine,hum.re c.anlog (Basaglar KwikPen U-100 Insulin) 100 unit/mL (3 mL) injection pen Inject 5 Units under the skin. 1 Active insulin glargine (Lantus Solostar U-100 Insulin) 100 unit/mL (3 mL) injection pen Inject 15 Units under the skin. 1 Active pancrelipase, Wbj-Ceqf-Jocw, (Creon) 24,000-76,000 -120,000 unit capsule Take 1 capsule (24,000 Units total) by mouth 4 (four) times a day. 1 Active losartan (COZAAR) 100 mg tablet Take 1 tablet (100 mg total) by mouth. 9 Active metoprolol tartrate (LOPRESSOR) 100 mg tablet Take 2 tablets (200 mg total) by mouth. 1 Active montelukast (SINGULAIR) 10 mg tablet Take 1 tablet (10 mg total) by mouth. 0 Active potassium chloride 20 mEq tablet extended release Take 1 tablet by mouth 1 (one) time each day. 1 Active Active Problems Problem Noted Date Diagnosed Date CHF (congestive heart failure) ([facility] V24, [facility] V28) 02/03/2021 Overview (02/06/2024): Chronic diastolic heart failure. Follows with [facility] on a 6-month basis. PAD (peripheral artery disease) ([facility] V24) Atrial fibrillation ([facility] V24, [facility] V28) 0 09/30/2015 CKD (chronic kidney disease) stage 3, GFR 30-59 ml/min ([facility] V24, [facility] V28) 10/07/2013 Overview (02/06/2024): GFR 58 on 01/09/12 DM Type II diabetes mellitus wi th renal manifestations ([facility] V24, [facility] V28) 10/07/2013 Overview (02/06/2024): 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 (02/06/2024): 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 Hyperlipidemia with target LDL less than 100 Overview (02/06/2024): [facility] update Cyst of Bartholin's gland 01/17/2006 Diffuse cystic mastopathy 01/17/2006 Esophageal reflux 01/17/2006 Essential hypertension, benign 01/17/2006 Hemorrhage of gastrointestinal tract 01/17/2006 Overview (02/06/2024): [facility] update Pancreatic steatorrhea 01/17/2006 Immunizations Name Administration Dates Next Due Influenza Quadravalent, MDCK , 0.5ml, preservative free (Flucelvax) 6mo and older 03/04/2020 Influenza Quadravalent, MDCK , 0.5ml, with preservative (Flucelvax) 6mo and older 01/03/2017 Influenza Quadrivalent, 0.5m l, preservative free (Fluarix; FluLaval; Fluzone) ages 6mo and older (Afluria) 3yo and older 02/08/2021 Influenza trivalent, with pr eservative (Fluzone; Afluria) 6mo and older 01/18/2012,01/18/2011,12/29/2009,01/12,01/28/2008,01/31/2007,02/03/2005 Influenza, Unspecified 01/22/2019,01/07/2014, Pneumococcal polysaccharide 23 valent (Pneumovax 23) 2yo and older 01/22/2019,02/05/2002 Td Tetanus diptheria (Tdvax) 7yo and older 02/02/2017,12/06/2007,11/11/1996 Zoster Live 01/23/2013 Surgical History Surgery Date Site/Laterality Comments OTHER SURGICAL HISTORY 10/29/1999 PROCEDURE: [place] EXCISION LESION PANCREAS TONSILLECTOMY ADENOIDECTOMY, BILATERAL MYRINGOTOMY AND TUBES PROCEDURE: WA TONSILLECTOMY & ADENOIDECTOMY <AGE 10 CHOLECYSTECTOMY PROCEDURE: WA LAPAROSCOPY SURG CHOLECYSTECTOMY KNEE SURGERY PROCEDURE: HISTORICAL KNEE SURGERY; COMMENT: left, arthroscopy BREAST BIOPSY 40yrs ago Left PROCEDURE: BX BREAST; PERC NEEDLE CORE W/IMAG GUID OTHER SURGICAL HISTORY 12/14/2022 PROCEDURE: WA SLCTV CATHJ 2ND ORDER ABDL PEL/LXTR ART BRNCH OTHER SURGICAL HISTORY 12/14/2022 PROCEDURE: [place] THROMBOLYSIS ARTERIAL INFUSION ICRA RS&I INIT TX OTHER SURGICAL HISTORY 12/14/2022 PROCEDURE: ULTRASOUND GUIDANCE FOR VASCULAR AC OTHER SURGICAL HISTORY 12/14/2022 PROCEDURE: WA CESSATION THROMBOLYTIC THER W/CATHETER REMOVAL OTHER SURGICAL HISTORY 12/14/2022 Left PROCEDURE: WA RPR BLOOD VESSEL DIRECT LOWER EXTREMITY OTHER SURGICAL HISTORY 12/14/2022 Left PROCEDURE: WA REVSC OPN/PRQ ILIAC ART W/STNT PLMT & ANGIOPLSTY OTHER SURGICAL HISTORY 12/14/2022 Right PROCEDURE: WA TEAEC W/WO PATCH GRAFT COMMON FEMORAL OTHER SURGICAL HISTORY 12/14/2022 PROCEDURE: WA BYP OTH/THN VEIN FEMORAL-FEMORAL Medical History Medical History Date Comments Esophageal reflux 01/17/2006 DX:Esophageal reflux Cyst of Bartholin's gland 01/17/2006 DX:Cys t of Bartholin's gland Diffuse cystic mastopathy 01/17/2006 DX:Dif fuse cystic mastopathy Pancreatic steatorrhea 01/17/2006 DX:Pancre atic steatorrhea Hemorrhage of gastrointestin al tract, unspecified 01/17/2006 DX:Hemorrhage of gastrointes tinal tract, unspecified Type II or unspecified type diabetes mellitus without mention of complication, not stated as uncontrolled 01/17/2006 DX:Type II or unspecified ty pe diabetes mellitus without mention of complication, not stated as uncontrolled Essential hypertension, benign 01/17/2006 D X:Essential hypertension, benign CKD (chronic kidney disease) stage 3, GFR 30-59 ml/min (CMS/HCC V24, CMS/HCC V28) 10/07/2013 DX:CKD (chronic kidney disea se) stage 3, GFR 30-59 ml/min ([facility]) Family History Medical History Relation Name Comments Heart attack Father HTN, diabtets Diabetes Maternal Grandmother Diabetes Mother Breast cancer Other 4 m&p cousins 50s+&p cousin s 50s+ Relation Name Status Comments Father Maternal Grandmother Mother Other 4 m&p cousins 50s+&p cousins 50s+ Alive Social History Tobacco Use Types Packs/Day Years Used Date Smoking Tobacco: Former Cigarettes Q uit: 04/30/1995 Smokeless Tobacco: Never Alcohol Use Standard Drinks/Week Comments Yes 0 (1 standard drink = 0.6 oz pur e alcohol) Comments Unknown Sex and Gender Information Value Date Recorded Sex Assigned at Not on file Legal Sex Female 8:59 AM EST Gender Identity Not on file Sexual Orientation Not on file Obstetrics History Last Filed Vital Signs Vital Sign Reading Time Taken Comments Blood Pressure 98/60 02/06/2024 1:53 PM EDT Pulse 77 02/06/2024 1:53 PM EDT Temperature - - Respiratory Rate - - Oxygen Saturation - - Inhaled Oxygen Concentration - - Weight 56.2 kg (124 lb) 02/06/2024 1:53 PM EDT Height 154.9 cm (5' 1 ) 01/25/2024 12:44 PM EDT Body Mass Index 23.43 01/25/2024 12:44 PM EDT Plan of Treatment Upcoming Encounters Date Type Department Care Team (Late st Contact Info) Description 12/17/2024 7:45 AM EDT Ancillary Procedure [facility] - [facility] [address] [facility] [address] [place] [address] 01/26/2025 3:30 PM EDT Office Visit Vascular Surgery - [place] [address] [facility] [address] [place] [address] Ramiro Turner MD [address] [facility] [address] [place] [address] Health Maintenance Due Date Last Done Comments COVID-19 Vaccine (#1) 1945 RSV Immunization Adult Patients (1 - 1-dose 75+ series) 2013 Zoster Vaccines (1 of 2) 03/20/2013 01/23/2013 Diabetes: Annual Retina Eye Exam 10/15/2016 10/16/2015 Diabetes: Annual Foot Exam 12/07/2019 12/06/2018 Pneumococcal Vaccine: 50+ Years (3 of 3 - PCV) 01/23/2020 01/22/2019, 02/05/2002 Depression Screening 04/02/2022 09/03/2018 Falls Risk Assessment 04/02/2022 12/03/2019 Medicare Annual Wellness Visit 04/02/2022 Osteoporosis Screening (Bone Density Screening) 04/02/2022 06/05/2006 Social Influencers of Health Screening 04/02/2022 Diabetes: Blood Sugar Control Test (HGBA1C) 04/15/2022 06/24/2020, 01/22/2019 Breast Cancer Screening 02/06/2024 12/25/19, 12/25/2019, 02/01/2017 Cholesterol Screening (Lipid Panel) 11/09/2024 11/10/2019, 11/10/2019 Influenza Vaccine (#1) 2024 , 03/04/2020, 01/22/2019, Additional history exists Hypertension/CHF/CAD Annual BMP Blood Test 02/05/2025 02/06/2024, 02/06/2024 DTaP,Tdap,and Td Vaccines (4 - Td or Tdap) 02/02/2027 02/02/2017, 12/06/2007, 11/11/1996 HIB Vaccines Aged Out No longer eligi ble based on patient's age to complete this topic HPV Vaccines Aged Out No longer eligi ble based on patient's age to complete this topic Hepatitis A Vaccines Aged Out No long er eligible based on patient's age to complete this topic Hepatitis B Vaccines Aged Out No long er eligible based on patient's age to complete this topic IPV Vaccines Aged Out No longer eligi ble based on patient's age to complete this topic MMR Vaccines Aged Out No longer eligi ble based on patient's age to complete this topic Meningococcal ACWY Vaccine Aged Out N o longer eligible based on patient's age to complete this topic Meningococcal B Vaccine Aged Out No l onger eligible based on patient's age to complete this topic RSV Immunization Patients Under 20 months Aged Out No longer eligible based on patient's age to complete this topic Varicella Vaccines Aged Out No longer eligible based on patient's age to complete this topic Procedures Procedure Name Priority Date/Time Associated Diagnosis Comments ANNUAL BMP BLOOD TEST Routine 02/06/2024 HEMOGLOBIN A1C Routine 06/24/2020 DX MAMMO INCL CAD BI Routine 12/25/2019 9:28 AM EDT Inconclusive mammogram LIPID PANEL Routine 11/10/2019 from Last 3 Months or Most Recently Relevant to Health Maintenance Results * Annual BMP Blood Test (02/06/2024) Annual BMP Blood Test abstracted us Historical Provider HEALTH MAINTENANCE Final Result * (ABNORMAL) Hemoglobin A1c (06/24/2020) Hemoglobin A1C 9.7(A) <=6.5 % Blood Venous blood specimen / Unknown us Historical Provider LAB BLOOD ORDERABLES Aurora l Result * DX MAMMO INCL CAD BI (12/25/2019 9:28 AM EDT) Anatomical Region Laterality Modality Mammography 11/21/2019 6:53 PM EDT Narrative 12/25/2019 9:34 AM EDT This is a summary report. The complete report is available in the patient's medical record. If you cannot access the medical record, please contact the sending organization for a detailed fax or copy. Bilateral diagnostic digital mammogram History: Left breast density seen on CT abdomen/pelvis of 06/10/2019. Screening right breast. Full field digital mammography, reviewed with CAD and compared to previous mammograms dating back to 01/22/2013 with most recent of 02/01/2017.. CT images were also reviewed. The breast tissue is heterogeneously dense, limiting sensitivity. No suspicious mass, architectural distortion or suspicious calcifications are identified. IMPRESSION: : Dense breast tissue, limiting the sensitivity of mammography. No mammographic evidence of malignancy. The scheduled left breast ultrasound was canceled. BIRADS 1-Negative; N. 5 year breast cancer risk assessment 1.7 % Lifetime breast cancer risk assessment 2.4 % Breast cancer risk category Low (<15%) Procedure Note Evangelina Molina MD - 04/18/2022 This is a summary report. The complete report is available in thepatient's medical record. If you cannot access the medical record, pleasecontact the sending organization for a detailed fax or copy. Bilateral diagnostic digital mammogram History: Left breast density seen on CT abdomen/pelvis of 06/10/2019.Screening right breast. Full field digital mammography, reviewed with CAD and compared to previousmammograms dating back to 01/22/2013 with most recent of 02/01/2017.. CTimages were also reviewed. The breast tissue is heterogeneously dense,limiting sensitivity. No suspicious mass, architectural distortion orsuspicious calcifications are identified. IMPRESSION: : Dense breast tissue, limiting the sensitivity of mammography. Nomammographic evidence of malignancy. The scheduled left breast ultrasoundwas canceled. BIRADS 1-Negative; N. 5 year breast cancer risk assessment 1.7 % Lifetime breast cancer risk assessment 2.4 % Breast cancer risk category Low (<15%) us Jorge Puentes MD IMG BI PROCEDURES Final Result * Lipid panel (11/10/2019) LDL/HDL Ratio 2 0 - 4 Triglycerides 53 0 - 150 mg/dL Cholesterol 129 0 - 200 mg/dL HDL 76 >=40 mg/dL LDL Cholesterol 43 0 - 100 mg/dL Blood Venous blood specimen / Unknown Historical Provider LAB BLOOD ORDERABLES Aurora l Result from Last 3 Months or Most Recently Relevant to Health Maintenance Insurance MEDICARE [facility] Advance Directives Documents on File Type Date Recorded Patient [employer] anation Health Care Decision (hx) 03/23/2020 AD CARRANZA DIRECTIVE Health Care Decision (hx) 03/23/2020 AD CARRANZA DIRECTIVE Health Care Decision (hx) 03/23/2020 AD CARRANZA DIRECTIVE Health Care Decision (hx) 03/23/2020 AD CARRANZA DIRECTIVE Health Care Decision (hx) 03/23/2020 AD CARRANZA DIRECTIVE Health Care Decision (hx) 03/23/2020 AD CARRANZA DIRECTIVE Health Care Decision (hx) 03/23/2020 AD CARRANZA DIRECTIVE Health Care Decision (hx) 03/23/2020 AD CARRANZA DIRECTIVE Health Care Decision (hx) 03/23/2020 AD CARRANZA DIRECTIVE Health Care Decision (hx) 11/25/2019 AD CARRANZA DIRECTIVE Health Care Decision (hx) 11/25/2019 AD CARRANZA DIRECTIVE Health Care Decision (hx) 11/25/2019 AD CARRANZA DIRECTIVE Health Care Decision (hx) 11/25/2019 AD CARRANZA DIRECTIVE Health Care Decision (hx) 11/25/2019 AD CARRANZA DIRECTIVE Health Care Decision (hx) 11/25/2019 AD CARRANZA DIRECTIVE Health Care Decision (hx) 11/25/2019 AD CARRANZA DIRECTIVE Health Care Decision (hx) 11/25/2019 AD CARRANZA DIRECTIVE Health Care Decision (hx) 11/25/2019 AD CARRANZA DIRECTIVE Health Care Decision (hx) 11/25/2019 AD CARRANZA DIRECTIVE Care Teams Line Maintainer Section Relationship Specialty Start Date End Date Mario Parker MD [facility] [place] [phone] PCP - General 02/13/23
--- OUTSIDE RECORDS SUMMARY | 2024-11-11 12:31 | XMS_ITS | Data Portability ---
Author Organization [facility], Main Office Address [address], [address] [place] [address] Care Team Providers Care Associate Justice Name Role Phone PENG MUNGUIA 1ST FLOOR OTHER [phone] JE DELCID Primary Care Provider Assessment No assessment recorded. Plan of Treatment Reminders Order Date Submit Date Provider Last Modified By Organization Details Last Modified Time Details Appointments None record ed. Lab None record ed. Referral None record ed. Procedures None record ed. Surgeries None record ed. Imaging None record ed. Medication Orders None record ed. Patient TargetsNo targets recorded. Patient InstructionsNo instructions recorded. Reason for Referral None Reported. Problems Name Problem SNOMED Code Status Onset Date Resolution Date Notes Provider Name and Address Organization Details Recorded Time Obstructive sleep apnea syndrome 16043145 Active 2022 STEPHAN BRAVO NP [address] [facility], [address], [place], [address], [facility] 3 10:47:48 Atrial fibrillation 88056584 Active 2022 STEPHAN BRAVO NP [address] [facility] [address] [facility], [address], [place], [address], [facility] 3 10:47:55 Coronary arterioscleros is 28661385 Active 2022 STEPHAN BRAVO NP [address] [facility] [address] [facility], [address], [place], [address], [facility] 3 10:48:01 Type 2 diabetes mellitus 56682931 Active 2022 STEPHAN BRAVO NP [address] [facility] [address] [facility], [address], [place], [address], [facility] 3 10:48:07 Gastroesophage al reflux disease without esophagitis 161387268 Active 2022 STEPHAN BRAVO NP [address], [address], [place], [address], [facility] 3 10:48:18 Essential hypertension 97453705 Active 2022 STEPHANAriel TOROVIOLETA MALONE [address], [address], [place], [address], [facility] 3 10:48:24 Osteoporosis 14106534 Active 2022 STEPHAN BRAVO NP [address], [address], [place], [address], [facility] 3 10:48:29 Asthenia 02004249 Active 2022 STEPHAN CORTEZVIOLETA MALONE [address] [facility], [address], [place], [address], [facility] 3 10:48:35 Open wound, heel 002138335 Active 2022 STEPHAN BRAVO NP [address] [facility], [address], [place], [address], [facility] 3 10:52:07 Bacteremia 5467943 Active 2022 STEPHAN BRAVO NP [address] [facility], [address], [place], [address], [facility] 3 10:52:26 Peripheral vascular disease 548311417 Active 2022 Daniella Kc MD [address] [facility], [address], [place], [address], [facility] 3 19:54:21 Problem Notes None recorded. Medical Equipment None Reported. Allergies Allergen ID Allergen Name Allergen Category Reaction Reaction Severity Criticality Documentation Date Start Date Code Code System Note Provider Name and Address Organization Details Recorded Time 70411 tramadol medicatio n Not available Not available Not available 01/10/2023 56292 RxNorm STEPHAN BRAVO, VIOELTA [address], [address], [place], [address], [facility] 3 10:31:32 Vitals Date Recorded Body height Body mass index (BMI) Body weight Heart rate Respiratory rate Body temperature Oxygen saturation Oxygen saturation in Arterial blood by Pulse oximetry Systolic And Diastolic Provider Name and Address Organization Details Last Updated DateTime 3 154.94 cm 22.7 kg/m2 46753.8 g 88 /min 18 /min 98.2 [degF] 96 % 96 % 151/68 mm[Hg] Daniella Kc MD [address] [facility] [address], [place], [address], [facility] 3 14:05:38 Date Recorded Body height Heart rate Respiratory rate Body temperature Oxygen saturation Oxygen saturation in Arterial blood by Pulse oximetry Systolic And Diastolic Provider Name and Address Organization Details Last Updated DateTime 3 154.94 cm 72 /min 16 /min 98 [degF] 96 % 96 % 133/71 mm[Hg] STEPHAN BRAVO NP [address] [facility] [address], [place], [address], [facility] 3 12:32:42 Date Recorded Body height Heart rate Respiratory rate Body temperature Oxygen saturation Oxygen saturation in Arterial blood by Pulse oximetry Body mass index (BMI) Body weight Systolic And Diastolic Provider Name and Address Organization Details Last Updated DateTime 3 154.94 cm 72 /min 16 /min 97.4 [degF] 95 % 95 % 22.7 kg/m2 60789.0 8 g 156/84 mm[Hg] STEPHAN BRAVO NP [address] [place] [address] [address], [place], [address], [facility] 3 12:15:50 Date Recorded Body height Heart rate Respiratory rate Body temperature Oxygen saturation Oxygen saturation in Arterial blood by Pulse oximetry Systolic And Diastolic Provider Name and Address Organization Details Last Updated DateTime 3 154.94 cm 72 /min 16 /min 98.6 [degF] 97 % 97 % 146/77 mm[Hg] STEPHAN BRAVO NP [address] [facility] [address], [place], [address], [facility] 3 12:47:16 Date Recorded Body height Body mass index (BMI) Body weight Heart rate Respiratory rate Body temperature Oxygen saturation Oxygen saturation in Arterial blood by Pulse oximetry Systolic And Diastolic Provider Name and Address Organization Details Last Updated DateTime 3 154.94 cm 22.5 kg/m2 03777.2 1 g 69 /min 12 /min 97 [degF] 94 % 94 % 152/72 mm[Hg] Daniella Kc MD [address] [facility], [address], [place], [address], [facility] 3 15:10:29 Social History Question Answer Notes LastModified by Organizat ion Details LastModified Time Tobacco Smoking Status Former Smoker quit in 1999 Daniella Kc MD [address] [facility], [address], [place], [address], [facility] 01/11/2023 14:00:34 Do You Have An Advance Directive? Yes [facility] Information not available 01/10/2023 What Is Your Code Status? DNI Information not available 01/10/2023 Where Do You Live? SingleLevelHouse Lives At Home With Granddasiria bucio, 2 Steps Information not available 01/11/2023 Legal Guardian? No Informati on not available 01/11/2023 Do You Have A Medical Power Of Repair Service Dispatcher? Yes Not Invoked Information not available 01/11/2023 What Was The Date Of Your Most Recent Tobacco Screening? 01/11/2023 Information not available 01/11/2023 Do You Have An Out Of Hospital DNR? Yes Information not available 01/11/2023 What Is Your Relationship Status? Information not available 01/11/2023 Has Tobacco Cessation Counseling Been Provided? No N/A As Pt No Longer Smokes Information not available 01/11/2023 Sex: Unknown Functional Status Question Answer Note LastModified by Organizat ion Details LastModified Time Do you use any illicit or recreational drugs? No Information not available 01/10/2023 Do you or have you ever used any other forms of tobacco or nicotine? No Information not available 01/11/2023 What is your level of alcohol consumption? None Information not available 01/10/2023 Mental Status None recorded. Family History Nothing Reported Notes:Mother (): Zurdo betes mellitus; Hypertension Father (): Diabetes mellitus; Hypertension; Stroke Medical History No medical history recorded. Gynecological HistoryNo gynecological history recorded. Obstetrics History GPAL:G 0 P 0 0 0 0 Immunizations Vaccine Type Date Status Note Provider Nam e and Address Organization Details Recorded Time Influenza, adjuvanted, quadrivalent, PF 2 [facility] 13:06:10 zoster live 3 completed Kalpana [facility] 07/30/2023 14:56:06 COVID-19, mRNA, LNP-S, bivalent, PF, 30 mcg/0.3 mL dose 1 completed Kalpanamal [facility] 07/30/2023 14:56:31 COVID-19, mRNA, LNP-S, bivalent, PF, 30 mcg/0.3 mL dose 1 completed Kalpanamal [facility] 07/30/2023 14:56:38 pneumococcal polysaccharide PPV23 2 completed Kalpana [facility] 07/30/2023 14:56:58 pneumococcal polysaccharide PPV23 9 completed Kalpana Naman [facility] 07/30/2023 14:57:07 Td (adult), 5 Lf tetanus toxoid, preservative free, adsorbed 7 completed Kalpanamal [facility] 07/30/2023 14:57:42 Td (adult), 5 Lf tetanus toxoid, preservative free, adsorbed 8 completed Kalpana [facility] 07/30/2023 14:57:48 Td (adult), 5 Lf tetanus toxoid, preservative free, adsorbed 7 completed Kalpana Naman [facility] 07/30/2023 14:57:56 Past Encounters Encounter ID Performer Location Encounter Start Date Encounter Closed Date Diagnosis/Indication Diagnosis SNOMED-CT Code Diagnosis ICD10 Code Diagnosis Note [id number] VIOLETA WILSON [address] [place] [address] [place] [address] 01/10/2023 10:06:24 01/12/2023 11:54:07 Bacteremia 8570686 R78.81 zosyn 3.[address] reviewed by IDflush picc line qshift with NS Asthenia 57607664 R53.1 PT OT eval and treatfall precaution sfrequent safety checks Atrial fibrillation 4943 6004 I48.91 eliquis 2.5 mg biddigoxin 125 mcg qodlasix 20 mg dailymetop rolol 100 mg bidmonitor heart rate Coronary arteriosclerosis 91866835 I25.10 plavix 75 mg dailyatorv astatin 20 mg daily Essential hypertension 10232679 I10 lasix 20 mg dailymetop rolol 100 mg bidmonitor bp Gastroesop hageal reflux disease without esophagitis 220851317 K21.9 zofran 4 mg q6hr prnprotoni x 40 mg dailyCT abd pelvis to be scheduled Obstructiv e sleep apnea syndrome 71446581 G47.33 cpap at night Osteoporosis 16041971 M8 1.0 alendronat e 70 mg q wedgabapen tin 200 mg tid Type 2 zurdo betes mellitus 54618402 E11.9 glargine 15 units dailylispr o a/cmonitor glucose Open wound, heel 2782470 09 S91.301A monitor for any infectiond ressing changes per wound mdwound consult [id number] Daniella Kc MD [address] [address] 01/11/2023 13:48:36 01/23/2023 15:04:23 Peripheral vascular disease 095886297 I73.89 Legs with good perfusion, . dressing not removed to look at foot blister (pt says now broken), but healing well per nursing.To remove groin sutures tomorrow.C ontinue plavix 75 mg qd and atorvastat in 20 mg qd.Continu e gabapentin 200 mg TID for pain.F/U with vascular as planned. Bacteremia 7678545 R78.8 1 A41.52 Continue Zosyn 3.[address] reviewed by IDTo have chest/abd/ pelvis CT next week.F/U with ID as planned.Mo nitor for sxs. Asthenia 75083654 R53.1 Was very deconditio marlo.PT says doing very well.Alok nue PT/OT for strengthen ing, balance, gait training, safety and function.C ontinue fall precaution s.Monitor for safety. Atrial fibrillation 4943 6004 I48.0 Rate in good control on meds as above and digoxin 62.5 mcg qod.Contin ue eliquis 2.5 mg BID for AC.Monitor HR and bleeding risk. Coronary arteriosclerosis 79094117 I25.10 No recent sxs.Contin ue meds as above.Simi tor for sxs. Essential hypertension 19361842 I10 SBP high today, but has been good up until now.No change in meds at this time.Alok nue lasix 20 mg qd, diltiazem 300 mg qd and metoprolol 100 mg BID.Monito r BP and labs Gastroesop hageal reflux disease without esophagitis 129475135 K21.9 No current sxs.Contin ue pantoprazo le 40 mg qd and zofran 4 mg q 6 hrs prnMonitor sxs. Obstructiv e sleep apnea syndrome 72654085 G47.33 Continue CPAP with sleep.F/U as planned Osteoporosis 24401022 M8 1.0 Continue alendronat e 70 mg q weekMonito r as outpt. Type 2 zurdo betes mellitus 41969579 E11.9 HgA1C was 6.5 inpt, but sugars have been high the last two evenings.F or now will continue Lantus 15 U qd and SSIConside r adjustment if 4 PM sugars remain high.Monit or fingerstic ks TID and HgA1C q 3 months. Open wound, heel 8854508 09 S91.301A Continue wound care as ordered.Fo llowed by wound Monitor for healing. [id number] VIOLETA WILSON EZRA [address] [place] [address] 01/15/2023 12:24:06 01/17/2023 08:20:31 Bacteremia 5504506 R78.81 zosyn 3.[address] reviewed by Luis Enrique picc line qshift with Ruben montez bidnursing to schedule [place] [id number] STEPHAN BRAVO NP [address] [address] 01/19/2023 12:00:54 01/23/2023 19:53:34 Bacteremia 9145816 R78.81 zosyn 3.[address] reviewed by ID 01/19flu picc line qshift with NSprobioti c bidnursing to schedule CT Asthenia 23250620 R53.1 PT OT eval and treatfall precaution sfrequent safety checks [id number] [facility]RAVO [facility] [address] [place] [address] 01/22/2023 12:34:01 01/23/2023 20:24:12 Bacteremia 8096292 R78.81 A41.52 zosyn 3.[address] reviewed by ID 01/19flu picc line qshift with NSprobioti c bidnursing to schedule CT-complet ed [id number] MD PENG Givens EZRA [address] [place] [address] [place] [address] 01/25/2023 14:32:50 01/30/2023 12:14:35 Bacteremia 3136123 R78.81 A41.52 Will start levaquin 750 mg qod for 2 wksTo have chest/abd/ pelvis CT prior to end of abxs.F/U with ID as planned. Peripheral vascular disease 829487377 I73.89 Improved since revascular ization procedures .Continue plavix 75 mg qd and atorvastat in 20 mg qd.Continu e gabapentin 200 mg TID for pain.F/U with vascular as planned. Asthenia 53394262 R53.1 Now independen t per rehabWill be evaluated by home PT/OT to assess further needs.F/U with PCP as planned. Essential hypertension 58584117 I10 SBP has been variableNo change in meds at this time.Alok nue lasix 20 mg qd, diltiazem 300 mg qd and metoprolol 100 mg BID.F/U with PCP as outpt. Atrial fibrillation 4943 6004 I48.0 Rate in good control on meds as above and digoxin 62.5 mcg qod.Contin ue eliquis 2.5 mg BID for AC.Monitor HR and bleeding risk. Coronary arteriosclerosis 09322562 I25.10 No recent sxs.Contin ue meds as above.F/U with PCP and cardio Gastroesop hageal reflux disease without esophagitis 001186985 K21.9 No current sxs.Contin ue pantoprazo le 40 mg qd and zofran 4 mg q 6 hrs prnF/U with GI as planned Obstructiv e sleep apnea syndrome 71830246 G47.33 Continue CPAP with sleep.F/U as planned Osteoporosis 84426715 M8 1.0 Continue alendronat e 70 mg q weekMonito r as outpt. Type 2 zurdo betes mellitus 64597061 E11.9 HgA1C was 6.5 inpt.Most sugars here have been <300, occ higher at either noon or evening.Wi ll continue Lantus 15 U qd and SSIF/U with PCP as outpt. Open wound, heel 7665607 09 S91.301A VNA will continue wound care.F/U with PCP Health Concerns Section Related Observation LastModified by Organization Detai ls LastModified Time None Recorded Concern Status LastModified by Organization Details LastModified Time None Recorded Advance Directives Directive Y: [facility] Payers Insurance Date Sequence Insurance Name Policy Number Policy Roach Covered Member ID Roach Member ID Guarantor Name 01/30/2023 2 [place] [id number] Dana French [id number] Dana French 01/12/2023 1 [place] [employer] Dana Mary [id number] Dana French Notes Date Note Type Note Provider Name and Address Organization Details Recorded Time 01/11/2023 text/html This is an 82 yo woman who is here for rehab and IV abxs after several recent hospitalizations, most recently for pseudomonas sepsis-unknown source. She had originally been seen at [facility] on 12/12 for a RLE angiogram with expected stent placement with Dr. Parham, but whereas U/S showed a common femoral artery occlusion, angiogram showed the right external iliac was occluded and could not be accessed from groin due to small collaterals and was going to be brought back for an attempt at retrograde wiring. However, on 12/13 she developed severe LLE pain ass. with RUE numbness. The numbness passed quickly, but the pain continued to be severe and she went to the [facility] ED.In ED her labs and vitals were unremarkable. A CTA was done which showed Left: The common iliac, external iliac and internal iliac arteries are occluded. Retrograde perfusion of the distal right external iliac artery through the epigastric artery. The common femoral, superficial femoral, profunda femoral and popliteal arteries are patent. The posterior tibial artery demonstrates severe stenosis of the distal portion. The distal anterior tibial and peroneal arteries are occluded. The dorsalis pedis arteries is occluded.Right: The common iliac artery is occluded. The external iliac and internal iliac arteries are reperfused through the epigastric artery. The common femoral, superficial femoral, profunda femoral and popliteal arteries are patent. The posterior tibial artery is patent. The distal peroneal artery, distal anterior tibial artery and dorsalis pedis are occluded. Other findings included Bilateral pleural effusions and bilateral lower lobe consolidation suspicious for pneumonia. Dilated left and right atria. Fecal loading associated with possible mild stercoral colitis. Pneumobilia. Consider cholangitis in the differential diagnosis. Heterogenous liver parenchyma, consider further evaluation to assess for cirrhosis/mass. She had hypoxia down to 86% on RA with improvement into the 90s on 2L O2 by AR. She was started on ceftriaxone and azithromycin.She was started on IV heparin and taken to the cath suite because of BLE critical limb ischemia. Initially catheter directed thrombolysis was done, but she developed a left groin hematoma causing an acute aortobiiliac occlusion. Thrombolysis was discontinued and patient had immediate operative revascularization. She had evacuation of left groin hematoma, primary repair of left common femoral artery, femorofemoral bypass with 7 mm Dacron graft, right common femoral endarterectomy with bovine pericardial patch angioplasty, left common iliac stent graft placement. Pain was txed with dilaudid and she was put back on po Eliquis. Also put on Plavix and prophylactic Keflex for 7 days.Echo was done and showed EF of 60-65%, mild-mod TR, pacer wire in place, mild , borderline pulmonary HTN and moderate left sided pleural effusion. Abxs were d/c'd after 5 days. Liver u/s was done and was benign. O2 requirement improved with diuresis. She was transferred to [facility] on 12/21.On 12/31 she was transferred to the [facility] ED because of lethargy, abd pain and hypoxia. When EMS arrived her sat was 100% on RA. In ED her temp was 99.9, other VS stable. Her WBC was 34.2, hgb 10.1, other labs were baseline, U/A showed urate crystals, but was otherwise neg. CXR showed mild pulmonary congestion with tr. bilateral effusions. Abd CT scan showed 5.8 cm ill-defined irregularly-shaped area of hyperattenuation in hepatic segment 6 which extends superiorly into the inferior aspect of hepatic segment 5. The finding may represent an area of transient hepatic arterial difference; however, a permeative lesion is not completely excluded. Further characterization with nonemergent liver mass protocol MRI recommended. Pneumobilia, consistent with prior reimplantation of the biliary tree from duodenectomy. Moderate bilateral pleural effusions with adjacent atelectasis. Femorofemoral bypass graft surrounded with fluid and with adjacent inflammatory change. No definite loculated fluid collection or internal air. Small locule of air in the anterior aspect of the urinary bladder with trace perivesicular inflammatory stranding. This could be the result of a gas-forming organism within the urinary bladder. The finding can also be seen with prior instrumentation. Clinical correlation and correlation with urinalysis is recommended. She was given IV fluids and started on vanco and zosyn. Blood cxs grew Pseudomonas aeruginosa and Brandy tropicalis. She was started on fluconazole and doxy. ID consult was obtained and recommended d/c doxy, vanco and fluconazole and start micafungin and continue Zosyn. It was unclear whether groin hematoma could be infected and vascular surgery was consulted. Surgery did not feel pneumobilia was sig. GI felt stercoral colitis could be source and recommended bowel regimen and EGD and sigmoidoscopy. They also recommended an MRI for liver mass protocol to evaluate hepatic lesions-this was deferred to outpt f/u. Because of bacteremia TTE was done which showed no vegetations with the caveat that a TIFFANY is more accurate. Brandy in blood cxs was determined to be an error and anti-fungal was stopped. Endoscopy was done and showed Esophageal hiatal hernia, polyps in fundus and body of stomach were seen on EGD , with no source of infection. At the time of d/c path was not yet available, but now is and shows 1. Small bowel, biopsies:- Marked active enteritis with surface erosion in keeping with an ischemic and/or peptic etiology.2. Stomach, random biopsies:- Gastric mucosa, mixed antral and fundic-body,with surface reactive changes consistent with a chemical etiology.- H. pylori organisms are not identified on H&E histology.3. Gastric polyp, biopsy:- Fundic gland polyp. She had a US retroperitoneum showing bilateral renal cysts, numerous echogenic foci in left kidney likely nonobstructive stones, no hydronephrosis. Urinalysis negative for infection.It was recommended that she continue Zosyn and have a repeat CT chest/abd/pelvis on 01/15, to determine end date per ID. She developed a large blister on her left foot which was txed with xeroform. D/C summary also states sutures were removed from groin incisions while inpt. But apparently pt still had sutures in place and these will be removed here after checking with vascular. She was transferred here on 01/09.Since here she is participating with rehab and getting her strength back slowly. 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 Daniella Kc MD [address] [facility], [address], [place], [address], [facility] 01/20/2023 15:27:07 01/15/2023 text/html seen today for a cute rounding visit, CAOx3 sitting up in bed, she had some loose stool today, started probiotic bid, she is tolerating abx therapy and nursing attempting to schedule her CT STEPHAN BRAVO NP [address] [facility] [address] [facility], [address], [place], [address], [facility] 01/15/2023 12:35:32 01/19/2023 text/html seen today for a cute rounding visit, CAOx3 ambulating with PT and supervision, gait steady, she is due for CT abd/pelvis today to determine if she needs to continue IV abx, she is refusing her cpap and had sent it home STEPHAN BRAVO NP [address] [facility] [address] [facility], [address], [place], [address], [facility] 01/19/2023 12:18:13 01/22/2023 text/html seen today for a cute rounding visit, CAOx3 she is upset that we donot have the CT scan results as she wants to go home, nursing contacted CT and ID for the results to determine if she needs to continue to stay and receive abx iv STEPHAN BRAVO NP [address] [facility] [address] [facility], [address], [place], [address], [facility] 01/22/2023 12:50:13 01/25/2023 text/html I am seeing this 82 yo woman for d/c. She was admitted here on 01/09 after several complicated hospitalizations. Most recently for pseudomonas sepsis-unknown source. Previously she had several revascularization procedures for both legs due to critical ischemia.Since here she has done well with rehab and is 100% independent per rehab. She saw ID today after having a repeat CT scan on 01/19 which showed: Heterogeneous enhancement of the hepatic parenchyma as seen previously, with ill-defined geographic areas of decreased and increased enhancement. The subcapsular region of increased enhancement is associated with slight capsular irregularity, mild biliary ductal dilatation, and small hypodensities at its apex. Differential is broad and includes inhomogeneous fat deposition, infection/inflammation without organized collection, or potentially neoplasm with cholangiocarcinoma and metastatic disease both within the differential. Correlation with abdominal MRI with and without contrast is again recommended for further evaluation. Mild stranding surrounding the femoral-femoral bypass with trace fluid near its insertions, overall significantly improved from the prior study. No organized or drainable collection at this time. A few small ill-defined right-sided pulmonary nodules are noted, favored to be infectious/inflammatory given the clustered appearance. Consider follow-up with CT in one year. Subtle enhancement of the common hepatic duct wall, which may indicate ascending infection. Correlation with symptoms and serology is recommended. 1.2 cm enhancing nodule arising from or abutting the left thyroid lobe with differential including parathyroid adenoma and exophytic thyroid nodule. Correlation with thyroid ultrasound is recommended, if not performed previously. ID recommended d/c Zosyn and transition to po levaquin for 2 more wks, with another CT scan before the end of abx. [facility] at [facility]. 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 Her 2 sons are present and both say they can make sure everything is set up at home. 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 Daniella Kc MD [address] [place] [address], [address], [place], [address], [facility] 01/25/2023 15:17:14 OBGyn Episode No OBEpisode recorded.
== END 2024-11-11 11:52 | disposition home or self-care (01) ==
LOC: HO.ENCR 11:07
PROVIDERS: PCP Internal Medicine; Visit Provider Physician Assistant Medical
DX: E11.22 Type 2 diabetes mellitus with diabetic chronic kidney disease (principal); N18.30 Chronic kidney disease, stage 3 unspecified; Z79.4 Long term (current) use of insulin; Z86.39 Personal history of other endocrine, nutritional and metabolic disease

== ENCOUNTER → 2024-11-11 11:06 | Outpatient (BNVA) | payer MEDICARE, SELFPAY | PROVIDERS: PCP Internal Medicine; Visit Provider Physician Assistant Medical | DX: E13.65 Other specified diabetes mellitus with hyperglycemia (principal); S36.209S Unspecified injury of unspecified part of pancreas, sequela; E13.22 Other specified diabetes mellitus with diabetic chronic kidney disease; N18.30 Chronic kidney disease, stage 3 unspecified; E13.40 Other specified diabetes mellitus with diabetic neuropathy, unspecified; E16.2 Hypoglycemia, unspecified; Z86.39 Personal history of other endocrine, nutritional and metabolic disease; Z79.4 Long term (current) use of insulin | CPT/HCPCS: 82947; 99212 ==

== ENCOUNTER 2024-11-11 12:05 | Outpatient (REF) | payer MEDICARE, SELFPAY | END 2024-11-11 12:06 | disposition home or self-care (01) | LOC: HO.10HDL 12:05 | PROVIDERS: Visit Provider Physician Assistant Medical | DX: E13.9 Other specified diabetes mellitus without complications (principal); S36.209S Unspecified injury of unspecified part of pancreas, sequela | CPT/HCPCS: 36415; 84681 ==

== ENCOUNTER 2024-12-10 14:14 | Outpatient (AMB) | payer MEDICARE, SELFPAY ==
--- NOTE | 2024-12-10 14:17 | A.OFFVIS_ITS ---
Vital Signs 3 12/10/24 14:18 12/10/24 14:21 Height 5 ft 1 in Weight 134 lb 14.766 oz 134 lb BMI 25.5 BP 136/62 Blood Pressure Location Lt brachial Position Sitting Pulse 81 Pulse Source Pulse Oximeter Pulse Oximetry (%) 96 Oxygen Delivery Method Room Air Intake Visit Reasons: with MD for Diabetes med review Intake Note: Patient present today for Type 2 Diabetes Mellitus and med check. Last Diabetic eye exam: approx in August 2024, has yearly appointments. Last Podiatry Visit: Doesn't have one Random Glucose: 386 mg/dl HgA1C: 10/1% 10/07/24 Edge Finisher Required: No Accompanied by: Self / Same As Patient Allergies tramadol Allergy (Unknown, Verified 12/10/24 14:24) Unknown HPI Comments Details: Patient is 84-year-old female with DM (insulin dependent/type 3 C) 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 Last seen by Kyara JOSEPH in August 2024 Per previous notes she has pancreatic diabetes with multiple complications and no beta cell reserve likely due to pancreatic surgery. She spends 6 months in [place]. She returned to [place] in August 2024. 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 Hemoglobin A1c 10.1% September 2024 with target <8.5%. Her electrical calibrator in [place] is: [facility]. [phone] Dr. Robbi Betancourt report downloaded from November 27 to 12/10/2024 Time CGM active 66% Average glucose 245 mg/dL Glucose variability 40.6% Within target range 28% High 29% Very high 42% Low 1% Very low 0% Interpretation: She remains hyperglycemic most of the day 08:00 onwards. Blood sugars do drop overnight. Much improved hypoglycemia. In the past she had hypoglycemia with a glucose level of 40 and had no symptoms with it. Has nasal big see me prescribed. Micro and macrovascular complications: Last eye visit: Done in [place] 09/21. No retinopathy per patient. Does have nephropathy, last EGFR reported as 56 from 2022??/ no recent microalbumin in the chart, Does have neuropathy (plantar surfaces of feet). Podiatry: Does not have solar electric practitioner Does have peripheral vascular disease. No history of stroke or heart attack. Diabetes medications: Current regimen: Insulin aspart 5 units before breakfast and lunch and 5 units before dinner Tresiba 14 units at night She reports eating 3 meals per day. She eats ice cream regularly. Random glucose 386 mg/dl Physical exam: Constitutional: Alert, in no distress. Eyes: Pupils are equal, round and reactive to light. Extraocular muscles intact. Neck: Supple, Full range of motion. No lymphadenopathy. Respiratory: Clear to auscultation. Cardiovascular: S1 S2 regular. No murmurs. Right foot: Done August 2024 Warm and well perfused. No clubbing, cyanosis or edema. Intact DP pulse. Decreased vibratory sensation. Intact sensation to monofilament. No open wounds. Left foot: Done August 2024 Warm and well perfused. No clubbing, cyanosis or edema. Intact DP pulse. Decreased vibratory sensation. Intact sensation to monofilament. No open wounds. Laboratory Tests 02/17/21 02/17/21 03/02/22 08:05 Unknown 10:44 Hgb Hct Plt Count Creatinine Estimated GFR Glucose (Clinic) Hgb A1c (Clinic) 8.2 H C-Peptide AST ALT Triglycerides 90 Cholesterol 155 LDL Cholesterol, Calc 71 HDL Cholesterol 66 Urine Creatinine 127.92 Urine Microalbumin 60.0 Microalb/Creat Ratio 46.9 01/10/23 01/22/23 11/23/23 05:00 04:30 11:10 Hgb 13.8 Hct 43.2 Plt Count 241 D Creatinine 0.95 Estimated GFR 56 Glucose (Clinic) Hgb A1c (Clinic) 9.8 H C-Peptide AST 72 H ALT 49 H Triglycerides Cholesterol LDL Cholesterol, Calc HDL Cholesterol Urine Creatinine Urine Microalbumin Microalb/Creat Ratio 02/19/24 10/07/24 11/11/24 09:31 10:01 11:20 Hgb Hct Plt Count Creatinine Estimated GFR Glucose (Clinic) 184 H Hgb A1c (Clinic) 9.9 H 10.1 H C-Peptide AST ALT Triglycerides Cholesterol LDL Cholesterol, Calc HDL Cholesterol Urine Creatinine Urine Microalbumin Microalb/Creat Ratio 11/11/24 12:10 Hgb Hct Plt Count Creatinine Estimated GFR Glucose (Clinic) Hgb A1c (Clinic) C-Peptide 0.48 L AST ALT Triglycerides Cholesterol LDL Cholesterol, Calc HDL Cholesterol Urine Creatinine Urine Microalbumin Microalb/Creat Ratio [facility] Medical History (Updated 10/07/24 @ 11:18 by JAKE Vaca) History of hypoglycemia Neuropathy of both feet Osteoporosis 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 Social History Household Members: Other Household Members Other:: Lives with [facility] Alcohol intake: former Patient Tobacco Use Status: Former Tobacco user Physical Exam Vital Signs: Last Vital Signs Pulse 81 12/10/24 14:21 BP 136/62 12/10/24 14:21 Pulse Ox 96 12/10/24 14:21 Oxygen Delivery Method Room Air 12/10/24 14:21 BMI result Body Mass Index 25.5 Office Procedures Glucose Monitoring Details Details: See [facility] [address] - Glucose monitoring, continuous-physician I&R Procedure code (CPT) selection complete Results Reviewed Results Reviewed: Laboratory Last Values Glucose (Clinic) 386 mg/dL (60-115) H* 12/10/24 14:26 Assessment & Plan Assessment & Plan (1) 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: Code(s): E13.9 - Other specified diabetes mellitus without complications; S36.209S - Unspecified injury of unspecified part of pancreas, sequela Category: Medical Plan: See below (2) CKD stage 3 due to type 2 diabetes mellitus: Code(s): E11.22 - Type 2 diabetes mellitus with diabetic chronic kidney disease; N18.30 - Chronic kidney disease, stage 3 unspecified Category: Medical Plan: See below (3) History of hypoglycemia: Code(s): Z86.39 - Personal history of other endocrine, nutritional and metabolic disease Category: Medical Plan: See below (4) Diabetes type 2, uncontrolled: Code(s): E11.65 - Type 2 diabetes mellitus with hyperglycemia Category: Medical Qualifiers: Glycemic state: with hyperglycemia Qualified Code(s): E11.65 - Type 2 diabetes mellitus with hyperglycemia Plan: 84-year-old female with 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 With complications of nephropathy, neuropathy and PVD A1c elevated at 10.1% from September 2024. She is using freestyle Serafin 2, previously prescriptions to pharmacy has been sent for Serafin 3+, however she says that she has not heard from pharmacy. Looks like she gets her Serafin from a Level Chef. I will message the staff to facilitate the upgrade, and she already has a referral for perioperative educator for CGM upgrade teaching. CGM data downloaded today and shows she is mostly hyperglycemic throughout the day with a dip in her sugars overnight. Since she takes the Tresiba in the morning I feel comfortable increase a get. I am also going to go up on her bolus insulin. Her hypoglycemia is much improved. Her blood sugars elevated in the 380s today, however she denies any nausea, vomiting, abdominal pain, mental status changes. Overall I am concerned about her independence with managing her health, she says she lives with her granddaughter however she drove herself, while she was able to accurately tell me how much insulin she is taking, she might have some degree of memory issues. She has prescription of glucose tablets with her has prescription of Baqsimi. i. This is medically necessary as she has had severe hypoglycemia with no symptoms historically. She also has a history of CKD, no recent kidney function in the chart, I have ordered Plan: -increase Tresiba to 16 units daily -increase insulin aspart to 8 units t.i.d. before meals, do not take if blood sugar less than 100 -upgrade to Serafin 3+ sensor messaged staff and already referral for perioperative educator -hypoglycemia education reviewed -she has not had any recent blood work, again reiterated to her importance of doing fasting blood work and urine test which has been due Follow up in 4 weeks for diabetic management. Written instructions were provided to the patient. 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 Orders: Orders 2 Creatinine Today E11.65 - Type 2 diabetes mellitus with hyperglycemia, E78.5 - Hyperlipidemia, unspecified, Z79.4 - terminal gauger supervisor (current) use of insulin Aspartate Amino Transferase Today E11.65 - Type 2 diabetes mellitus with hyperglycemia, E78.5 - Hyperlipidemia, unspecified, Z79.4 - senior living (current) use of insulin Lipid Panel Today E11.65 - Type 2 diabetes mellitus with hyperglycemia, E78.5 - Hyperlipidemia, unspecified, Z79.4 - senior living (current) use of insulin Microalbumin, Random (w Creat) Today E11.65 - Type 2 diabetes mellitus with hyperglycemia, E78.5 - Hyperlipidemia, unspecified, Z79.4 - terminal gauger supervisor (current) use of insulin Alanine Aminotransferase Today E11.65 - Type 2 diabetes mellitus with hyperglycemia, E78.5 - Hyperlipidemia, unspecified, Z79.4 - senior living (current) use of insulin Complete Blood Count no Diff Today E11.65 - Type 2 diabetes mellitus with hyperglycemia, E78.5 - Hyperlipidemia, unspecified, Z79.4 - senior living (current) use of insulin AMB Glucose Monitoring Today E11.65 - Type 2 diabetes mellitus with hyperglycemia, Z79.4 - terminal 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 supervisor (current) use of insulin Medications: Changed 2 From insulin aspart U-100 Administer 8 units subcutaneously 3 times daily 5-10 minutes before meals E11.65 - Type 2 diabetes mellitus with hyperglycemia To insulin aspart U-100 8 units (0.08 mL) subcut TID 15 mL 3RF E11.65 - Type 2 diabetes mellitus with hyperglycemia From insulin degludec (Tresiba FlexTouch U-200 insulin) Replaces Basaglar 14 units (0.07 mL) subcut BEDTIME 9 mL 5RF To insulin degludec (Tresiba FlexTouch U-200 insulin) 16 units (0.08 mL) subcut BEDTIME 9 mL 5RF Patient Instructions: Administer insulin aspart 8 units 3 times daily 5-10 minutes before meals. Do not administer if blood sugar is less than 100. 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
[2024-12-10 14:18] VITALS: BMI 25.5
[2024-12-10 14:21] VITALS: BP 136/62; PULSE 81; O2SAT 96
[2024-12-10 14:30] LABS: Glucose, Whole Blood 386 mg/dL (60-115)
--- OUTSIDE RECORDS SUMMARY | 2024-12-10 14:33 | XMS_ITS ---
[facility] Organization Unknown Care Team Organization Name Specialty Phone Email Start Date End Da te [facility] Primary Care 03/07/2022 4
--- OUTSIDE RECORDS SUMMARY | 2024-12-10 14:33 | XMS_ITS | Clinical Summary ---
Author Organization [facility] Address [address] [place] [id number] Phone Care Team Providers Care Water Quality Assistant Name Role Phone Mario Parker MD Primary Care Provider [phone] Allergies Active Allergy Reactions Criticality Noted Date [...] Units under the skin. 1 Active pancrelipase, Xwg-Bygo-Tfle, (Creon) 24,000-76,000 -120,000 unit capsule Take 1 [...] Date Diagnosed Date CHF (congestive heart failure) ([facility] [place]24, [facility] V28) 02/03/2021 Overview (02/06/2024): Chronic diastolic heart failure. Follows [facility] on a 6-month basis. PAD (peripheral artery disease) ([facility] V24) Atrial fibrillation ([facility] V24, [facility] V28) 0 09/30/2015 CKD (chronic kidney disease) stage 3, GFR 30-59 ml/min ([facility] V24, [facility] V28) 10/07/2013 Overview (02/06/2024): GFR 58 on 01/09/12 DM Type II diabetes mellitus wi th renal manifestations ([facility] V24, [facility] V28) 10/07/2013 Overview (02/06/2024): 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 (02/06/2024): 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 Hyperlipidemia with target LDL less than 100 Overview (02/06/2024): [facility] update Cyst of Bartholin's gland 01/17/2006 Diffuse cystic mastopathy 01/17/2006 Esophageal reflux 01/17/2006 Essential hypertension, benign 01/17/2006 Hemorrhage of gastrointestinal tract 01/17/2006 Overview (02/06/2024): [facility] update Pancreatic steatorrhea 01/17/2006 Immunizations Name Administration [...] Site/Laterality Comments OTHER SURGICAL HISTORY 10/29/1999 PROCEDURE: OK EXCISION LESION PANCREAS TONSILLECTOMY ADENOIDECTOMY, BILATERAL MYRINGOTOMY AND TUBES PROCEDURE: OK TONSILLECTOMY & ADENOIDECTOMY <AGE 10 CHOLECYSTECTOMY PROCEDURE: OK LAPAROSCOPY SURG CHOLECYSTECTOMY KNEE SURGERY PROCEDURE: HISTORICAL KNEE SURGERY; COMMENT: left, arthroscopy BREAST BIOPSY 40yrs ago Left PROCEDURE: BX BREAST; PERC NEEDLE CORE W/IMAG GUID OTHER SURGICAL HISTORY 12/14/2022 PROCEDURE: OK SLCTV CATHJ 2ND ORDER ABDL PEL/LXTR ART BRNCH OTHER SURGICAL HISTORY 12/14/2022 PROCEDURE: OK THROMBOLYSIS ARTERIAL INFUSION ICRA RS&I INIT TX OTHER SURGICAL HISTORY 12/14/2022 PROCEDURE: ULTRASOUND GUIDANCE FOR VASCULAR AC OTHER SURGICAL HISTORY 12/14/2022 PROCEDURE: OK CESSATION THROMBOLYTIC THER W/CATHETER REMOVAL OTHER SURGICAL HISTORY 12/14/2022 Left PROCEDURE: OK RPR BLOOD VESSEL DIRECT LOWER EXTREMITY OTHER SURGICAL HISTORY 12/14/2022 Left PROCEDURE: OK REVSC OPN/PRQ ILIAC ART W/STNT PLMT & ANGIOPLSTY OTHER SURGICAL HISTORY 12/14/2022 Right PROCEDURE: OK TEAEC W/WO PATCH GRAFT COMMON FEMORAL OTHER SURGICAL HISTORY 12/14/2022 PROCEDURE: OK BYP OTH/THN VEIN FEMORAL-FEMORAL Medical History Medical [...] disea se) stage 3, GFR 30-59 ml/min ([facility]) Family History Medical History Relation Name Comments [...] Description 12/17/2024 7:45 AM EDT Ancillary Procedure [facility] [address] [facility] [address] [place] [address] 01/26/2025 3:30 PM EDT Office Visit Vascular Surgery - [place] [address] [facility] [address] [place] [phone] Ramiro Turner MD [address] [facility] [address] [place] [address] Health Maintenance Due Date Last Done Comments COVID-19 Vaccine (#1) 1945 RSV Immunization Adult Patients (1 - 1-dose 75+ series) 2013 Zoster Vaccines (1 of 2) 03/20/2013 01/23/2013 Diabetes: Annual Retina Eye Exam 10/15/2016 10/16/2015 Diabetes: Annual Foot Exam 12/07/2019 12/06/2018 Pneumococcal Vaccine: 50+ Years (2 of 2 - PCV) 01/23/2020 01/22/2019, 02/05/2002 Falls Risk Assessment 04/02/2022 12/03/2019 Medicare Annual Wellness Visit 04/02/2022 Osteoporosis Screening (Bone Density Screening) 04/02/2022 06/05/2006 Social Influencers of Health Screening 04/02/2022 Diabetes: Blood Sugar Control Test (HGBA1C) 04/15/2022 06/24/2020, 01/22/2019 Breast Cancer Screening 02/06/2024 12/25/19 20, 12/25/2019, 02/01/2017 Depression Screening 04/30/2024 Cholesterol Screening (Lipid Panel) 11/09/2024 11/10/2019, 11/10/2019 [...] Test (02/06/2024) Annual BMP Blood Test abstracted Historical Provider HEALTH MAINTENANCE Final Result * (ABNORMAL) Hemoglobin A1c (06/24/2020) Hemoglobin A1C 9.7(A) <=6.5 % Blood Venous blood specimen / Unknown Historical [...] Unknown Historical Provider LAB BLOOD ORDERABLES Aurora magana Result from Last 3 Months or Most Recently Relevant to Health Maintenance Insurance MEDICARE [facility] Advance Directives Documents on File Type Date Recorded Patient Custom Bookbinder Expl anation Health Care Decision (hx) 03/23/2020 [...] (hx) 11/25/2019 AD CARRANZA DIRECTIVE Care Teams Water Quality Assistant Relationship Specialty Start Date End Date Mario Parker MD [facility] [place] [phone] PCP - General 02/13/23
--- OUTSIDE RECORDS SUMMARY | 2024-12-10 14:33 | XMS_ITS | Encounter Summary ---
Author Organization [facility] Address [address] [place] [id number] Phone Care Team Providers Care Director Of Neurology Name Role Phone Marco Antonio Bolaños MD Primary Care Provider Unavail able Encounter Details Date Type Department Care Team (Late st Contact Info) Description 05/11/2020 Procedure Pass [facility] [address] [place] [address] Social History Tobacco Use Types Packs/Day Years Used Date Smoking Tobacco: Former Cigarettes Smokeless Tobacco: Never Comments:quit 20 yrs ago Alcohol Use Standard Drinks/Week Comments Yes 0 (1 standard drink = 0.6 oz pur e alcohol) very rarely Comments No Sex and Gender Information Value Date Recorded Sex Assigned at Not on file Legal Sex Female 10:38 PM EDT Gender Identity Not on file Sexual Orientation Not on file documented as of this encounter Plan of Treatment Not on file documented as of this encounter Visit Diagnoses Not on filedocumented in this encounter Care Teams Director Of Neurology Relationship Specialty Start Date End Date Marco Antonio Bolaños MD PCP - General Endocrinology 01/24/18 documented as of this encounter Additional Source Comments The information contained in this document represents components of the legal health record. It is not the complete legal health record.[facility]
--- OUTSIDE RECORDS SUMMARY | 2024-12-10 14:33 | XMS_ITS | Patient Health Record ---
Author Organization [facility] Address [address] [place] [address] Care Team Providers Care Director Public Name Role Phone Keanu Chávez Primary Care Provider RANJEET JULIAN Unavailable [phone] Marcello Culp Unavailable [phone] Chica Beard Unavailable [phone] Allergies Allergen (clinical drug ingredient) Drug/Non Drug Allergy documented on EMR Reaction Allergy Type Onset Date Status tramadol TRAMADOL dizziness Drug Allergy Active Results Component Value Reference Range Notes Hemoglobin A1C (91666) Reviewed date:03/12/2024 08:22:33 AM Interpretation:9.7% Performing Lab: Notes/Report: 9.7% Hemoglobin A1c (%) 9.7% CBC (INCLUDES DIFF/PLT) (Q-6 399) Reviewed date:05/12/2024 05:41:48 PM Interpretation: Performing Lab:TP, [facility][id number], [id number] Clayton Bailey MD Notes/Report: FASTING: UNKNOWN WHITE [...] MPV 10.0 7.5-12.5 fL ABSOLUTE NEUTROPHILS 7417 5035-6353 cells/uL ABSOLUTE LYMPHOCYTES 1687 328-6761 cells/uL ABSOLUTE MONOCYTES 658 200-950 cells/uL ABSOLUTE EOSINOPHILS 56 15-500 cells/uL ABSOLUTE BASOPHILS 47 0-200 cells/uL NEUTROPHILS 78.9 LYMPHOCYTES 13.0 MONOCYTES 7.0 EOSINOPHILS 0.6 BASOPHILS 0.5 TSH W/REFLEX TO FT4 (Not yet reviewed by provider) Interpretation: Performing Lab:TP, [facility][id number] [address], [id number] Clayton Bailey MD Notes/Report: 0 TSH W/REFLEX TO FT4 2.27 0.40-4.50 mIU/L COMPREHENSIVE METABOLIC PANE L (Q-71129) (Not yet reviewed by provider) Interpretation: Performing Lab:TP, [facility]Eiipa0366 [address] [id number] Clayton Bailey MD Notes/Report: 0 GLUCOSE 96 [...] 41 10-35 U/L ALT 39 6-29 U/L VITAMIN B12 (Not yet reviewe d by provider) Interpretation: Performing Lab:TP, [facility]Slr[facility]7037 [address] [id number] Clayton Bailey MD Notes/Report: 0 VITAMIN B12 043 845-5658 pg/mL PTH, INTACT AND CALCIUM (Not yet reviewed by provider) Interpretation: Performing Lab:TP, [facility][id number] [address] [id number] Clayton Bailey MD Notes/Report: FASTING: UNKNOWN PARATHYROID HORMONE, INTACT 88 16-77 pg/mL Interpretive Guide Intact PTH Calcium ------- Normal Parathyroid Normal Normal Hypoparathyroidism Low or Low Normal Low Hyperparathyroidism Primary Normal or High High Secondary High Normal or Low Tertiary High High Non-Parathyroid Hypercalcemia Low or Low Normal High CALCIUM 7.1 8.6-10.4 mg/dL CBC (INCLUDES DIFF/PLT) (Q-6 399) (Not yet reviewed by provider) Interpretation: Performing Lab:TP, [facility][id number] [address], [id number] Clayton Bailey MD Notes/Report: 0 WHITE BLOOD [...] MPV 9.7 7.5-12.5 fL ABSOLUTE NEUTROPHILS 6613 6525-6702 cells/uL ABSOLUTE LYMPHOCYTES 6097 593-5650 cells/uL ABSOLUTE MONOCYTES 468 200-950 cells/uL ABSOLUTE EOSINOPHILS 111 15-500 cells/uL ABSOLUTE BASOPHILS 60 0-200 cells/uL NEUTROPHILS 77.8 LYMPHOCYTES 14.7 MONOCYTES 5.5 EOSINOPHILS 1.3 BASOPHILS 0.7 Albumin, Random Urine with C reatinine (Not yet reviewed by provider) Interpretation: Performing Lab:[facility]Bwfvp1513 [address], [id number] Clayton Bailey MD Notes/Report: 0 CREATININE, RANDOM [...] patient to be within a diagnostic category. LIPID PANEL (Q-7600) (Not ye t reviewed by provider) Interpretation: Performing Lab:[facility][id number] [address], [id number] Clayton Bailey MD Notes/Report: 0 CHOLESTEROL, TOTAL 169 <200 mg/dL HDL CHOLESTEROL 70 > OR = 50 mg/dL TRIGLYCERIDES 112 <150 mg/dL LDL-CHOLESTEROL 79 Reference range: <100 Desirable range <100 mg/dL for primary prevention; <70 mg/dL for patients with CHD or diabetic patients with > or = 2 CHD risk factors. LDL-C is now calculated using the Gee-Karina calculation, which is a validated novel method providing better accuracy than the Friedewald equation in the estimation of LDL-C. Gee SS et al. TAYLOR. 2013;310(19): 9670-6958 (http://education.[employer].Axial Exchange/faq/FQY729) CHOL/HDLC RATIO 2.4 <5.0 (calc) NON HDL CHOLESTEROL 99 <130 mg/dL (calc) For patients with diabetes plus 1 major ASCVD risk factor, treating to a non-HDL-C goal of <100 mg/dL (LDL-C of <70 mg/dL) is considered a therapeutic option. Hemoglobin A1c (L-557632, Q- 496) (Not yet reviewed by provider) Interpretation: Performing Lab:TP, [facility]Mntey2780 [address], [id number] Clayton Bailey MD Notes/Report: 0 PTH, INTACT AND CALCIUM (Not yet reviewed by provider) Interpretation: Performing Lab:TP, [facility]Karrs4075 [address] [id number] Calyton Bailey MD Notes/Report: 0 PARATHYROID HORMONE, INTACT 183 16-77 pg/mL Interpretive Guide Intact PTH Calcium ------- Normal Parathyroid Normal Normal Hypoparathyroidism Low or Low Normal Low Hyperparathyroidism Primary Normal or High High Secondary High Normal or Low Tertiary High High Non-Parathyroid Hypercalcemia Low or Low Normal High CALCIUM 9.1 8.6-10.4 mg/dL SPECIMEN INTEGRITY COMPROMIS ED (Not yet reviewed by provider) Interpretation: Performing Lab:TP, [facility]Sskdl1204 [address], [id number] Clayton Bailey MD Notes/Report: 0 SPECIMEN INTEGRITY COMPROMISED Whole blood, unspun or partially spun gel barrier tube was received more than 6 hours since collection. A false elevation of K, Phos and LD as well as a false decrease in glucose may occur due to prolonged contact with red cells. Reason For Referral Reason Medicare Unaligned pt needs 4 wheeled seated walker due to unsteady gait with falls PT H 60 / W 127 Diagnosis 1 Unsteadiness on feet (R26.81) Diagnosis 2 Unspecified fall, in itial encounter (W19.XXXA) Referral Organization [facility] Referring Provider First Name Keanu Referring Provider [...] 1 capsule Orally Once a day Not-Taking Lisinopril 2.5 MG TAKE 1 TABLET BY MOUTH EVERY DAY daily; Duration: 90 days Active Clobetasol Propionate 0.05 % 1 application Externally Twice a day; Duration: 90 days Active Digoxin 125 MCG 1/2 tablet Orally Once a day Active Creon 82605-20432 UNIT Take 1 capsule Orally Four times [...] PEPCID INSTEAD Oral; Duration: 90 Days Active Metoprolol Tartrate 100 MG 1 tablet Orally Twice a day Active methylPREDNISolone 4 MG as directed Orally 05/19/2024 Not-Taking tiZANidine HCl 4 MG 1-2 tablets [...] units tid Active Misc. Devices - as directeddaily; Duration: [...] Points 0 Interpretation Negative Section Notes: , [employer] [place] [employer] [place] [employer] [place] [employer] [place] [employer] [place] [employer] [place] [employer] [place] [employer] [place] [employer] [place] [employer] [place] [employer] [place] [employer] [place] [employer] [place] [employer] [place] [employer] [place] [employer] [place] [employer] [place] [employer] [place] , [employer] [place] , [employer] [place] , [employer] [place] Problems Problem Type SNOMED Code ICD Code Onset Dates Problem Status W/U Status Risk Notes Problem Non-thrombocytopen ic purpura (304932181) 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) Active confirmed unchanged on exam Problem Hypothyroidism (31455458) Other specified hypothyroidism (E03.8) Active confirmed TSH back to normal on recent labs; she denies any potentially related symptoms Problem Renal disorder associated with type I diabetes mellitus (696592419) 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) Active confirmed Problem Diabetic autonomic neuropathy due to type 1 diabetes mellitus (073327371) Type 1 diabetes mellitus with diabetic neuropathy, unspecified (E10.40) Active confirmed Problem Polyneuropathy due to diabetes mellitus type I (457546622) Type 1 diabetes mellitus with diabetic polyneuropathy (E10.42) Active confirmed Problem Hyperlipidemia (69801829) Hyperlipidemia, unspecified (E78.5) Active confirmed complication of DM; off statin, though, due to liver toxicity; recent labs somehow great Problem Polyneuropathy (11896220) Polyneuropathy in diseases classified elsewhere (G63) Active confirmed paresthesias per PE; now on gabapentin from provider in [place]; cause is multifactorial but indubitably contributed to by hypothyroidism Problem Hypertensive heart AND chronic kidney disease with congestive heart failure (49391798350288) Hypertensive heart and chronic kidney disease with heart failure and stage 1 through stage 4 chronic kidney disease, or unspecified chronic kidney disease (I13.0) Active confirmed on multiple meds but off ARB/SAÚL and only uses hydralazine when needed; managed by cardiology; they are not monitoring at home Problem Atherosclerotic heart disease of zuni coronary artery without angina pectoris (000161285997239) 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) Active confirmed s/p cardiac stent; off statin due to liver toxicity; denies recent chest pains Problem Toxic liver disease (320432491) Toxic liver disease, 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) Active confirmed due to statins; taken off Rxs by cardiology; recent LFTs better Problem Plantar fascial fibromatosis (77930721) Plantar fascial fibromatosis (M72.2) Active confirmed Problem Abnormal gait (43007971) Unsteadiness on feet (R26.81) Active confirmed see hpi Problem Frailty (finding) (053197887) Age-related physical debility (R54) Active confirmed Problem Adverse effect of antihyperlipide tiffanie and antiarterioscle rotic drugs, subsequent encounter (T46.6X5D) Active confirmed manifested as liver toxicity Problem Long-term current use of anticoagulant (299276132) MCC (current) use of anticoagulants (Z79.01) Active confirmed on eliquis Problem Long-term current use of insulin (023743996) medical technical writer (current) use of insulin (Z79.4) Active confirmed Problem History of pancreatectomy (situation) (923898660754854) 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) Active confirmed Problem Cardiac pacemaker in situ (858453933) Pacemaker (Z95.0) Active confirmed s/p ablation for afib; monitored/manag ed by cardiology Problem Hypercoagulable state (71251129) Secondary hypercoagulable state (D68.69) Active confirmed due to a fib; on eliquis; managed by cardiology Problem Allergic conjunctivitis of both eyes (186025114678858) Allergic conjunctivitis of both eyes (H10.13) Active confirmed Problem Exocrine pancreatic insufficiency (42107006) Exocrine pancreatic insufficiency (K86.81) Active confirmed Problem Disorder of pancreas (2352177) Other specified diseases of pancreas (K86.89) Active confirmed 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 due to looking abnormal when having gallbladder removed; insufficiency and DM since Problem Sleep apnea (65555236) Sleep apnea, unspecified type (G47.30) Active confirmed Problem Chronic diastolic heart failure (218814518) Chronic diastolic heart failure (I50.32) Active confirmed per cardiology note 05/11/20; on BB only as apparently no longer on digoxin; also out of diuretics as per HPI; also still reportedly has device that measures fluid retention daily that gets reported to cardiology; Problem Pulmonary hypertension (06357525) Pulmonary hypertension (I27.20) Active confirmed per ECHO results from cardio in [place]; managed by them; subjectively stable Problem Nephropathy due to secondary diabetes mellitus (490692416393233) DIABETES MELLITUS DUE TO UNDERLYING CONDITION WITH DIABETIC CHRONIC KIDNEY DISEASE (E08.22) Active confirmed 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; managed by endocrine in [place] only now as she didn't like [place] provider she saw last year; supposed to be on LA insulin daily and sliding scale rapid acting insulin; recent FBG horrible at 302; A1C up to 10.7; she apparently was without both for a week Problem Diabetic peripheral angiopathy (671990573) DIABETES MELLITUS DUE TO UNDERLYING CONDITION WITH DIABETIC PERIPHERAL ANGIOPATHY WITHOUT GANGRENE (E08.51) Active confirmed 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; managed by endocrine [place]'t like [place] [...] on eliquis but not an antiplatelet Problem Secondary diabetes mellitus (0703917) DIABETES MELLITUS DUE TO UNDERLYING CONDITION WITH HYPERGLYCEMIA (E08.65) Active confirmed 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; managed by endocrine in [place] only now as she didn't like [place] provider [place] saw last year; supposed to be on LA insulin daily and sliding scale rapid acting insulin; recent FBG horrible at 302; A1C up to 10.7; she apparently was without both for a week Problem Complication due to secondary diabetes mellitus (183535626757043) DIABETES MELLITUS DUE TO UNDERLYING CONDITION WITH OTHER SPECIFIED COMPLICATION (E08.69) Active confirmed 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; managed by endocrine in [place] only now as [place]'t like [place] provider [place] saw last year; supposed to be on LA insulin daily and sliding scale rapid acting insulin; HbA1c not below 9 for months; ; has hyperlipidemia as complication Problem 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 by functional hypoperfusion of kidneys caused by CHF; currently fluid balanced on daily diuretics Problem Peripheral vascular disease (869594427) PERIPHERAL VASCULAR DISEASE, UNSPECIFIED (I73.9) Active confirmed Problem Chronic atrial fibrillation (disorder) (565777656) Chronic atrial fibrillation, unspecified (I48.20) Active confirmed managed by cardio; s/p ablation w/ pacemaker implant; rate controlled on BB and diltiazem anticoagulated on eliquis; Problem Immunodeficiency disorder (disorder) (961743182) 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) Active confirmed due to terribly uncontrolled DM2; recent pneumonia per HPI Problem Chronic kidney disease stage 3A (disorder) (435632582) Chronic kidney disease, stage 3a (N18.31) Active confirmed Problem Chronic kidney disease stage 3B (disorder) (797102777) Chronic kidney disease, stage 3b (N18.32) Active confirmed due to DM2; remains off ARB and SAÚL; recent 47; ACR up to 70; \ Problem Gastroesophageal reflux disease (778794965) Gastroesophagea l reflux disease, unspecified whether esophagitis present (K21.9) Active confirmed on PPI; nafisa es any recent symptoms Vital Signs Heart Rate 78 /min 07/14/2024 Temperature 97.7 degrees Fahrenheit 07/09/2024 Respiratory Rate 16 /min 03/11/2024 Oximetry 97 % 07/14/2024 Blood pressure diastolic 74 mm Hg 07/14/2024 Height 60.25 in 07/14/2024 Blood pressure systolic 122 mm Hg 07/14/2024 Weight 129 lbs 07/14/2024 BMI 24.98 kg/m2 07/14/2024 Procedures Procedure Date Ordered Date Performed Result Body Sit e Dilated or Retinal Eye Exam 07/22/2024 07/22/2024 N/A EYE EXAM 03/20/2024 03/20/2024 N/A Encounters Encounter Location Date Provider Diagnosis [facility] [address] [place] [phone] 03/11/2024 Keanu Chávez [facility] [address] [place] [phone] 03/17/2024 Marcello Culp [facility] [address] [place] [address] 03/24/2024 Keanu Chávez [facility] [place] [phone] 03/24/2024 Keanu Chávez [facility] [address] [place] [address] 06/11/2024 Keanu Chávez Chronic kidney disea se, stage 3b N18.32 [facility] [address] [place] [address] 07/02/2024 Keanu Chávez [facility] [address] [place] [address] 07/02/2024 Keanu Chávez [address] [place] [phone] 07/21/2024 Keanu Chávez [facility] [address] [place] [address] 12/03/2024 Keanu Chávez Hypertensive heart a nd chronic kidney disease with heart failure and stage 1 through stage 4 chronic kidney disease, or unspecified chronic kidney disease I13.0 [facility] [address] [place] [address] 03/24/2024 Chica Beard Secondary hypercoagulable state D68.69 ; Plantar fascial fibromatosis M72.2 ; Chronic atrial fibrillation, unspecified I48.20 ; [...] and Chronic kidney disease, stage 3a N18.[address] [place] [address] 05/07/2024 Keanu Chávez Encounter for screen ing, unspecified Z13.9 ; Hemorrhage of anus and rectum K62.5 and Immunodeficiency due to conditions classified elsewhere D84.[address] [place] [address] 05/19/2024 Keanu Chávez Unspecified fall, initial encounter W19.XXXA ; Unsteadiness on feet R26.81 ; Myalgia, unspecified site M79.10 and Encounter for screening, unspecified Z13.9 [facility] [address] [place] [phone] 03/11/2024 Marcello Culp Type 1 diabetes elicia itus with diabetic neuropathy, unspecified E10.40 ; DIABETES MELLITUS DUE TO UNDERLYING CONDITION WITH DIABETIC CHRONIC KIDNEY DISEASE E08.22 ; TENTERING MACHINE OFF BEARER (CURRENT) USE OF INSULIN Z79.4 ; Presence of other specified devices Z97.8 ; Hyperlipidemia, unspecified E78.5 ; Immunodeficiency due to conditions classified elsewhere D84.81 ; Age-related physical debility R54 and Exocrine pancreatic insufficiency K86.[address] [place] [address] 07/09/2024 RANJEET ELIEL Hypertensive heart a nd [...] Chronic kidney disease, stage 3a N18.31 ; TENTERING MACHINE OFF BEARER (CURRENT) USE OF INSULIN Z79.4 ; Hyperlipidemia, unspecified E78.5 ; Type 1 diabetes mellitus with diabetic chronic kidney disease E10.22 ; Atherosclerotic heart disease of zuni coronary artery without angina pectoris I25.10 ; Exocrine pancreatic insufficiency K86.81 ; Encounter for screening, unspecified Z13.9 and Body mass index [BMI] 25.0-25.9, adult Z68.25 [facility] [address] [place] [phone] 07/14/2024 Marcello Culp DIABETES MELLITUS DU E TO UNDERLYING CONDITION WITH DIABETIC CHRONIC KIDNEY DISEASE E08.22 ; Chronic kidney disease, stage 3b N18.32 ; Type 1 diabetes mellitus with diabetic polyneuropathy E10.42 ; Presence of other specified devices Z97.8 ; medical technical writer (current) use of insulin Z79.4 ; Hyperlipidemia, unspecified E78.5 ; Exocrine pancreatic insufficiency K86.81 and Immunodeficiency due to conditions classified elsewhere D84.81 [facility] [address] [facility] [place] [address] 07/03/2024 Keanu Chávez Type 1 diabetes elicai itus with diabetic neuropathy, unspecified E10.40 ; [...] 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; managed by [place] [...] her and see how she does 03/24/2024 Plantar fascial fibromatosis (ICD-10 - M72.2) [...] evaluation for injection or even surgical repair 03/24/2024 Secondary hypercoagulable state (ICD-10 - D68.69) due to a fib; on eliquis; managed by cardiology due to afib, on eliquis, managed by auto engine mechanic 05/07/2024 Hemorrhage of anus and rectum (ICD-10 - K62.5) see hpi see hpi 05/07/2024 Encounter for screening, unspecified (ICD-10 - Z13.9) 06/11/2024 Chronic kidney disease, stage 3b (ICD-10 - N18.32) 07/03/2024 Type 1 diabetes mellitus with diabetic neuropathy, unspecified (ICD-10 - E10.40) 05/19/2024 Unsteadiness on feet (ICD-10 - R26.81) see hpi 05/19/2024 Unspecified fall, initial encounter (ICD-10 - W19.XXXA) see hpi 07/09/2024 Type 1 diabetes mellitus with diabetic neuropathy, unspecified (ICD-10 - E10.40) We consider her a type I given her need for exocrine replacement alsoRecent A1C 9.6%. Follows with Endo. States she was told she can eat whatever she wants. Monitor 07/09/2024 Hypertensive heart and chronic kidney disease [...] bp, avoid nephrotoxins and monitor PTH. monitor 07/14/2024 DIABETES MELLITUS DUE TO UNDERLYING CONDITION WITH DIABETIC CHRONIC KIDNEY DISEASE (ICD-10 - E08.22) 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; managed [place] [...] though she is receiving more diuretics now 12/03/2024 Hypertensive heart and chronic kidney disease with heart failure and stage 1 through stage 4 chronic kidney disease, or unspecified chronic kidney disease (ICD-10 - I13.0) 05/19/2024 Myalgia, unspecified site (ICD-10 - M79.10) see hpi 07/09/2024 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 Monitor s/s infection 07/14/2024 Type 1 diabetes mellitus with diabetic polyneuropathy (ICD-10 - E10.42) The neuropathy itself not been a major problem using gabapentin no infection history she has good nail care 07/03/2024 Hypertensive heart and chronic kidney disease with heart failure and stage 1 through stage 4 chronic kidney disease, or unspecified chronic kidney disease (ICD-10 - I13.0) 05/07/2024 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) 03/24/2024 Chronic atrial fibrillation, unspecified (ICD-10 - I48.20) managed by cardio; s/p ablation w/ pacemaker implant; rate controlled on BB and diltiazem anticoagulated on eliquis; on diltiazem, and eliquis, managed by auto engine mechanic, stable 03/11/2024 INTERMEDIATE (CURRENT) USE OF INSULIN (ICD-10 - [...] 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; managed by endocrine in [place] now [place] like [place] provider [place] saw last year; supposed to be on LA insulin daily and sliding scale rapid acting insulin; HbA1c not below 9 for months; ; has hyperlipidemia as complication uncontrolled, on insulin, should do better with diet, sees endo 03/11/2024 Presence of other specified devices (ICD-10 - Z97.8) The forrest 2 has been helpful especially avoiding hypoglycemia and she does her correction we will see what her glycohemoglobin does over time but again current regimen is reasonable 07/03/2024 Hyperlipidemia, unspecified (ICD-10 - E78.5) 05/19/2024 Encounter for screening, unspecified (ICD-10 - Z13.9) 07/09/2024 Secondary hypercoagulable state (ICD-10 - D68.69) due to a fib; on eliquis; managed by cardiology due to afib, on eliquis, managed by auto engine mechanic. monitor 07/14/2024 Presence of other specified devices (ICD-10 - Z97.8) The reader has been helpful especially avoiding hypoglycemia, I asked her to bring with it with her she may need to upgrade to the 3+ forrest depending on availability but this would not change anything except a new reader 07/14/2024 medical technical writer (current) use of insulin (ICD-10 - Z79.4) Basically were using the basal insulin with correction I think this is reasonable given her situation advanced age preference continue to monitor 07/09/2024 Chronic atrial fibrillation, unspecified (ICD-10 - I48.20) managed by cardio; s/p ablation w/ pacemaker implant; rate controlled on BB and diltiazem anticoagulated on eliquis; on diltiazem, and eliquis, managed by auto engine mechanic, stable 07/03/2024 Body mass index [BMI] 23.0-23.9, adult (ICD-10 - Z68.23) 03/24/2024 Chronic diastolic heart failure (ICD-10 - I50.32) per cardiology note 05/11/20; on BB only as apparently no longer on digoxin; also out of diuretics as per HPI; also still reportedly has device that measures fluid retention daily that gets reported to cardiology; euvolemic on furosemide, low salt diet recommended 03/11/2024 Hyperlipidemia, unspecified (ICD-10 - E78.5) complication [...] kidney disease, stage 3a (ICD-10 - N18.31) 07/14/2024 Hyperlipidemia, unspecified (ICD-10 - E78.5) complication of DM; off statin, though, due to liver toxicity; recent labs somehow great Reasonable results 07/09/2024 DIABETES MELLITUS DUE TO UNDERLYING CONDITION WITH OTHER SPECIFIED COMPLICATION (ICD-10 - E08.69) 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; managed by endocrine in [place] only now as she didn't like [place] provider she saw last year; supposed to be on LA insulin daily and sliding scale rapid acting insulin; HbA1c not below 9 for months; ; has hyperlipidemia as complication uncontrolled, on insulin, should do better with diet, sees endo 07/09/2024 Chronic diastolic heart failure (ICD-10 - I50.32) per cardiology note 05/11/20; on BB only as apparently no longer on digoxin; also out of diuretics as per HPI; also still reportedly has device that measures fluid retention daily that gets reported to cardiology; chronic. euvolemic on furosemide, low salt diet recommended. monitor 07/14/2024 Exocrine pancreatic insufficiency (ICD-10 - K86.81) She is using her Creon sign has not been a problem from the point of view 07/03/2024 Polyneuropathy in diseases classified elsewhere (ICD-10 - G63) 03/24/2024 Pacemaker (ICD-10 - Z95.0) s/p ablation for afib; monitored/manage d by cardiology monitored by auto engine mechanic 03/11/2024 Age-related physical debility (ICD-10 - R54) Generally she is stable with help from her family, advised fall precautions, she generally has good nutrition but with the ice cream, 03/11/2024 Exocrine pancreatic insufficiency (ICD-10 - K86.81) She is doing well with Creon does not have a lot of GI symptoms continue replacement 03/24/2024 PERIPHERAL VASCULAR DISEASE, UNSPECIFIED (ICD-10 - I73.9) by exam, she is on statin, mobility is impaired, she should control her DM better 07/14/2024 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) due to terribly uncontrolled DM2; recent pneumonia per HPI At this point the high sugars could lead to poor wound healing making her more prone to infection but we need to balance this against her advanced age 0307/09/2024 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 monitor 07/09/2024 Atherosclerotic heart disease of zuni coronary artery without angina pectoris (ICD-10 - [...] Test Test Name Order Date Hemoglobin A1c (L-253072, Q-496) 024 Hemoglobin A1c (L-961649, Q-496) 025 Hemoglobin A1c (L-245660, Q-496) 025 Albumin, Random Urine with Creatinine PTH, INTACT AND CALCIUM 07/03/2024 PTH, INTACT AND CALCIUM 07/03/2024 LIPID PANEL (Q-7600) 03/11/2024 LIPID PANEL (Q-7600) 07/03/2024 COMPREHENSIVE METABOLIC PANEL (Q-60671) 03/11/2024 COMPREHENSIVE METABOLIC PANEL (Q-53185) 07/03/2024 COMPREHENSIVE METABOLIC PANEL (Q-85823) 07/14/2024 MAGNESIUM 07/14/2024 PHOSPHATE ( PHOSPHORUS) 07/14/2024 CBC (H/H, RBC, INDICES, WBC, PLT) 2023 CBC (INCLUDES DIFF/PLT) (Q-6399) 025 VITAMIN B12 07/03/2024 TSH W/REFLEX TO FT4 03/11/2024 TSH W/REFLEX TO FT4 07/03/[address] INTEGRITY COMPROMISED 5 CT ABD&PELVIS W/CONT 05/21/2019 Next Appt Details Provider Name:Marcello Culp, 03/02/2025 11:00:00 AM, [address] [place] [address], [address], [id number], Insurance Providers Payer Name Payer Address Payer Phone Subscriber Number Group Number Insured Name Patient Relationship to Insured Coverage Start Date Coverage End Date Medicare Unaligned [address] JAKE Costello [phone] [id number] Dana Griffiths Self - patient is the insured [address] [place] [address] [address] [place] [address] [id number] Dana Griffiths Self - patient is the insured Medical (General) History Medical History History ICD Code whipple 1999 AFib PVD CAD DM2 GERD CHF PAD Neuropathy Surgical History Surgery Date(Month/Year) iliac stents bilateral coronary stents pacemaker whipple breast ( L) biopsy-benign femeral bypass 2022 Hospitalization History Reason Date(Month/Year) [facility] [place] pneumonia 04/21 Multiple seziure like episode 09/2023 [facility], Mini Stroke 08/11/2023 [facility] in [place] influenza 04/21
== END 2024-12-10 14:52 | disposition home or self-care (01) ==
LOC: HO.ENCR 14:15
PROVIDERS: PCP Internal Medicine; Visit Provider Student in an Organized Health Care Education/Training Program
DX: E11.22 Type 2 diabetes mellitus with diabetic chronic kidney disease (principal); N18.30 Chronic kidney disease, stage 3 unspecified; E11.65 Type 2 diabetes mellitus with hyperglycemia; Z79.4 Long term (current) use of insulin; S36.209S Unspecified injury of unspecified part of pancreas, sequela; Z86.39 Personal history of other endocrine, nutritional and metabolic disease; E78.5 Hyperlipidemia, unspecified
CPT/HCPCS: 95251; 99214

== ENCOUNTER → 2024-12-10 14:14 | Outpatient (BNVA) | payer MEDICARE, SELFPAY | PROVIDERS: PCP Internal Medicine; Visit Provider Student in an Organized Health Care Education/Training Program | DX: E11.22 Type 2 diabetes mellitus with diabetic chronic kidney disease (principal); N18.30 Chronic kidney disease, stage 3 unspecified; E11.65 Type 2 diabetes mellitus with hyperglycemia; E13.9 Other specified diabetes mellitus without complications; S36.209D Unspecified injury of unspecified part of pancreas, subsequent encounter; E78.5 Hyperlipidemia, unspecified; Z86.39 Personal history of other endocrine, nutritional and metabolic disease | CPT/HCPCS: 82947; 99212 ==

== ENCOUNTER 2025-01-05 12:55 | Outpatient (AMB) | payer MEDICARE, SELFPAY ==
--- OUTSIDE RECORDS SUMMARY | 2024-07-02 05:15 | XMS_ITS ---
Author Organization [employer] Address [address] [facility] [address] [place] [address] Care Team Providers Care Middleware Administrator Name Role Phone Keanu Chávez Primary Care Provider [phone] Marcello Culp [phone] REASON FOR VISIT FBW Social History Sex Assigned At : Social History Observation Description Sex Assigned At Female Encounters Encounter Location Date Provider Diagnosis [facility] [address] [place] [address] 07/02/2024 Keanu Chávez Plan Of Treatment Next Appt Details Provider Name:Marcello Robbi, 03/02/2025 11:00:00 AM, [address] [place] [address], [facility] [address], [place], [address], Progress Notes * CLARISADAVIDHUSSAIN DanaDOB:1 (84 yo F)Acc No.[id number]:07/02/2024 Labs Patient: Dana JACKMAN Provider: Danna Chávez DO :1940 A ge:84 Y S ex:Female Date:07/02/2024 Address:[address], [place], [id number] Subjective: * Chief Complaints: * 1 . FBW. * Medical History: Objective: Assessment: Plan: * Treatment: * * Electronic signature of Cecilia Chávez DO on 01/05/2025 at 03:04 PM EDT Sign off status: Pending * Provider: Danna Chávez DO Date: 0 07/02/2024 Generated for Kishor cr/Meghana/Brian on: 0 01/05/2025 03:04 PM EDT
--- OUTSIDE RECORDS SUMMARY | 2024-07-03 05:15 | XMS_ITS ---
Author Organization [employer] Address [address] [place] [address] Care Team Providers Care Drill Instructor Name Role Phone Keanu Chávez Primary Care Provider Marcello Culp [phone] Results Component Value Reference Range Notes Hemoglobin A1c (L-651731, Q- 496) (Not yet reviewed by provider) Interpretation: Performing Lab:TP [facility] [id number] Clayton Bailey MD Notes/Report: 0 Albumin, Random Urine with C reatinine (Not yet reviewed by provider) Interpretation: Performing Lab:[facility] [id number] Clayton Bailey MD Notes/Report: 0 CREATININE, RANDOM URINE 44 20-275 mg/dL ALBUMIN, URINE 0.2 See Note: mg/dL Reference Range: Not established Reference Range ALBUMIN/CREATININE RATIO, RANDOM URINE 5 <30 mg/g creat The ADA recommends that at least two of three specimens collected within a 3-6 month period be Moderately increased 30-299 abnormal before considering a patient to be Severely increased > OR = 300 excretion as follows: Normal to Mildly increased <30 The ADA defines abnormalities in albumin Albuminuria Category Result (mg/g creatinine) within a diagnostic category. PTH, INTACT AND CALCIUM (Not yet reviewed by provider) Interpretation: Performing Lab:TP, [facility], [id number] Clayton Bailey MD Notes/Report: FASTING: UNKNOWN PARATHYROID HORMONE, INTACT 88 16-77 pg/mL Interpretive Guide Intact PTH Calcium Primary Normal or High High Non-Parathyroid Tertiary High High ------- Normal Parathyroid Normal Normal Hypercalcemia Low or Low Normal High Hyperparathyroidism Secondary High Normal or Low Hypoparathyroidism Low or Low Normal Low CALCIUM 7.1 8.6-10.4 mg/dL LIPID PANEL (Q-0910) (Not ye t reviewed by provider) Interpretation: Performing Lab:[facility], [id number] Clayton Bailey MD Notes/Report: 0 CHOLESTEROL, TOTAL 169 <200 mg/dL HDL CHOLESTEROL 70 > OR = 50 mg/dL TRIGLYCERIDES 112 <150 mg/dL LDL-CHOLESTEROL 79 Desirable range <100 mg/dL for primary prevention; estimation of LDL-C. Reference range: <100 (http://education.Panjiva.BIMA/faq/TBK892) calculation, which is a validated novel method providing LDL-C is now calculated using the [facility] Gee FRANKLIN et al. TAYLOR. 2013;310(19): 6162-9971 with > or = 2 CHD risk factors. <70 mg/dL for patients with CHD or diabetic patients better accuracy than the Friedewald equation in the CHOL/HDLC RATIO 2.4 <5.0 (calc) NON HDL CHOLESTEROL 99 <130 mg/dL (calc) option. For patients with diabetes plus 1 major ASCVD risk (LDL-C of <70 mg/dL) is considered a therapeutic factor, treating to a non-HDL-C goal of <100 mg/dL COMPREHENSIVE METABOLIC PANE L (Q-57499) (Not yet reviewed by provider) Interpretation: Performing Lab:[facility] [facility], [id number] Clayton Bailey MD Notes/Report: 0 GLUCOSE 96 65-99 mg/dL Fasting referen ce interval UREA NITROGEN (BUN) 17 7-25 mg/dL CREATININE 1.15 0.60-0.95 mg/dL EGFR 46 > OR = 60 mL/min/1.73m2 BUN/CREATININE RATIO 15 6-22 (calc) SODIUM 147 135-146 mmol/L POTASSIUM 3.7 3.5-5.3 mmol/L CHLORIDE 108 98-110 mmol/L CARBON DIOXIDE 28 20-32 mmol/L CALCIUM 9.1 8.6-10.4 mg/dL PROTEIN, TOTAL 6.2 6.1-8.1 g/dL ALBUMIN 3.8 3.6-5.1 g/dL GLOBULIN 2.4 1.9-3.7 g/dL (calc) ALBUMIN/GLOBULIN RATIO 1.6 1.0-2.5 (calc) BILIRUBIN, TOTAL 0.9 0.2-1.2 mg/dL ALKALINE PHOSPHATASE 129 37-153 U/L AST 41 10-35 U/L ALT 39 6-29 U/L CBC (INCLUDES DIFF/PLT) (Q-6 399) (Not yet reviewed by provider) Interpretation: Performing Lab:[facility], [id number] Clayton Bailey MD Notes/Report: 0 WHITE BLOOD CELL COUNT 8.5 3.8-10.8 Thousand/ uL RED BLOOD CELL COUNT 4.29 3.80-5.10 Million/uL HEMOGLOBIN 14.3 11.7-15.5 g/dL HEMATOCRIT 44.8 35.0-45.0 % MCV 104.4 80.0-100.0 fL MCH 33.3 27.0-33.0 pg MCHC 31.9 32.0-36.0 g/dL value (in the range of 30 to 32 g/dL) is most likely not clinically significant; however, it should be condition. red cell parameters and the patient's clinical For adults, a slight decrease in the calculated MCHC interpreted with caution in correlation with other RDW 13.4 11.0-15.0 % PLATELET COUNT 246 140-400 Thousand/uL MPV 9.7 7.5-12.5 fL ABSOLUTE NEUTROPHILS 6613 0713-9230 cells/uL ABSOLUTE LYMPHOCYTES 9400 502-1889 cells/uL ABSOLUTE MONOCYTES 468 200-950 cells/uL ABSOLUTE EOSINOPHILS 111 15-500 cells/uL ABSOLUTE BASOPHILS 60 0-200 cells/uL NEUTROPHILS 77.8 LYMPHOCYTES 14.7 MONOCYTES 5.5 EOSINOPHILS 1.3 BASOPHILS 0.7 VITAMIN B12 (Not yet reviewe d by provider) Interpretation: Performing Lab:TP, [facility], [id number] Clayton Bailey MD Notes/Report: 0 VITAMIN B12 452 491-4536 pg/mL TSH W/REFLEX TO FT4 (Not yet reviewed by provider) Interpretation: Performing Lab:TP, [facility] FjscoWL[address] Clayton Bailey MD Notes/Report: 0 TSH W/REFLEX TO FT4 2.27 0.40-4.50 mIU/L SPECIMEN INTEGRITY COMPROMIS ED (Not yet reviewed by provider) Interpretation: Performing Lab:TP, [facility] [id number] Clayton Bailey MD Notes/Report: 0 SPECIMEN INTEGRITY COMPROMISED decrease in glucose may occur due to prolonged contact Whole blood, unspun or partially spun gel barrier tube was received more than 6 hours since collection. A with red cells. false elevation of K, Phos and LD as well as a false REASON FOR VISIT FBW Medications Medication SIG (Take, Route, Frequency, Duration) Notes Start Date End Date Status Tiadylt ER 300 MG 1 capsule Orally Once a day Not-Taking Basaglar KwikPen 100 UNIT/ML inject 12 units Subcutaneous at bedtime Not-Taking Lisinopril 2.5 MG TAKE 1 TABLET BY MOUTH EVERY DAY; Duration: 90 Active methylPREDNISolone 4 MG as directed Orally 05/19/2024 Active tiZANidine HCl 4 MG 1-2 tablets as needed for pain/spasm Orally up to 3 times a day 05/19/2024 Active Misc. Devices - as directeddaily; Duration: 90 days freestyle forrest 2 sensors e11.65 on insulin 05/28/2023 Active Digoxin 125 MCG 1/2 tablet Orally Once a day Active levoFLOXacin 750 MG TAKE 1 TABLET BY MOUTH EVERY 48 HOURS Oral; Duration: 29 Days Active NovoLOG FlexPen 100 UNIT/ML inject 5-13 units based on glucose Subcutaneous three times a day; Duration: 90 days amount base don 13 units tid Active Metoprolol Tartrate 100 MG 1 tablet Orally Twice a day; Duration: 90 days Active Furosemide 20 MG 1 tablet Orally Once a day B.I.D Active Gabapentin 100 MG TAKE 1 CAPSULE BY MOUTH THREE TIMES DAILY Oral Four times a day; Duration: 90 days Active Famotidine 20 MG TAKE 1 TABLET BY MOUTH DAILY. DISCONTINUE TAKING PANTOPRAZOLE. HAS AN INTERACTION WITH PLAVIX. START TAKING PEPCID INSTEAD Oral; Duration: 90 Days Active dilTIAZem HCl ER Coated Beads 300 MG TAKE 1 TABLET BY MOUTH DAILY Oral Every other day; Duration: 90 days Active Clopidogrel Bisulfate 75 MG TAKE 1 TABLET BY MOUTH DAILY Oral; Duration: 30 Days Active Pantoprazole Sodium 40 MG 1 tablet Orally Once a day Active Tresiba FlexTouch 100 UNIT/ML 14 units Subcutaneous daily 03/11/2024 Active Clobetasol Propionate 0.05 % 1 application Externally Twice a day; Duration: 90 days Active Creon 20008-73315 UNIT Take 1 capsule Orally Four times a day Active Eliquis 2.5 MG take 1 tablet Orally Twice a day Active Social History Sex Assigned At : Social History Observation Description Sex Assigned At Female Encounters Encounter Location Date Provider Diagnosis [address] [place] [address] 07/03/2024 Keanu Chávez Type 1 diabetes elicia itus with diabetic neuropathy, unspecified E10.40 ; Hypertensive heart and chronic kidney disease with heart failure and stage 1 through stage 4 chronic kidney disease, or unspecified chronic kidney disease I13.0 ; Hyperlipidemia, unspecified E78.5 ; Body mass index [BMI] 23.0-23.9, adult Z68.23 ; Chronic kidney disease, stage 3a N18.31 and Polyneuropathy in diseases classified elsewhere G63 Assessments Encounter Date Diagnosis (ICD Code) Assessment Notes Treatment Notes Treatment Clinical Notes Section Notes 07/03/2024 Type 1 diabetes mellitus with diabetic neuropathy, unspecified (ICD-10 - E10.40) 07/03/2024 Hypertensive heart and chronic kidney disease with heart failure and stage 1 through stage 4 chronic kidney disease, or unspecified chronic kidney disease (ICD-10 - I13.0) 07/03/2024 Hyperlipidemia, unspecified (ICD-10 - E78.5) 07/03/2024 Body mass index [BMI] 23.0-23.9, adult (ICD-10 - Z68.23) 07/03/2024 Chronic kidney disease, stage 3a (ICD-10 - N18.31) 07/03/2024 Polyneuropathy in diseases classified elsewhere (ICD-10 - G63) Plan Of Treatment Pending Test Test Name Order Date Hemoglobin A1c (L-139962, Q-496) 025 Albumin, Random Urine with Creatinine PTH, INTACT AND CALCIUM 07/03/2024 LIPID PANEL (Q-2780) 07/03/2024 COMPREHENSIVE METABOLIC PANEL (Q-22687) 07/03/2024 CBC (INCLUDES DIFF/PLT) (Q-6399) 025 VITAMIN B12 07/03/2024 TSH W/REFLEX TO FT4 07/03/2024 SPECIMEN INTEGRITY COMPROMISED Next Appt Details Provider Name:Marcello Culp, 03/02/2025 11:00:00 AM, [address] [place] [address], [address], Progress Notes * Dana WOODSDOB:1 (84 yo F)Acc No.[id number]:07/03/2024 Labs Patient: Keven Dana HERNANDEZ Provider: Danna Chávez DO :1940 A ge:84 Y S ex:Female Date:07/03/2024 Address:[address] [place] [address] [address], [address] Subjective: * Chief Complaints: * 1 . FBW. * Medical History: * Medications: T aking Tresiba FlexTouch 100 UNIT/ML Solution Pen-injector 14 units Subcutaneous daily , Taking Pantoprazole Sodium 40 MG Tablet Delayed Release 1 tablet Orally Once a day , Taking Eliquis 2.5 MG Tablet take 1 tablet Orally Twice a day , Taking Creon 611[address] UNIT Capsule Delayed Release Particles Take 1 capsule Orally Four times a day , Taking Clobetasol Propionate 0.05 % Cream 1 application Externally Twice a day , Taking Furosemide 20 MG Tablet 1 tablet Orally Once a day , Notes to Pharmacist: B.I.D, Taking Clopidogrel Bisulfate 75 MG Tablet TAKE 1 TABLET BY MOUTH DAILY Oral , Taking dilTIAZem HCl ER Coated Beads 300 MG Capsule Extended Release 24 Hour TAKE 1 TABLET BY MOUTH DAILY Oral Every other day , Taking Famotidine 20 MG Tablet TAKE 1 TABLET BY MOUTH DAILY. DISCONTINUE TAKING PANTOPRAZOLE. HAS AN INTERACTION WITH PLAVIX. START TAKING PEPCID INSTEAD Oral , Taking Gabapentin 100 MG Capsule TAKE 1 CAPSULE BY MOUTH THREE TIMES DAILY Oral Four times a day , Taking levoFLOXacin 750 MG Tablet TAKE 1 TABLET BY MOUTH EVERY 48 HOURS Oral , Taking Digoxin 125 MCG Tablet 1/2 tablet Orally Once a day , Taking Misc. Devices - Miscellaneous as directeddaily , Notes to Pharmacist: freestyle forrest 2 sensors e11.65 on insulin, Taking Metoprolol Tartrate 100 MG Tablet 1 tablet Orally Twice a day , Taking NovoLOG FlexPen 100 UNIT/ML Solution Pen-injector inject 5-13 units based on glucose Subcutaneous three times a day , Notes to Pharmacist: amount base don 13 units tid, Taking tiZANidine HCl 4 MG Tablet 1-2 tablets as needed for pain/spasm Orally up to 3 times a day , Taking methylPREDNISolone 4 MG Tablet Therapy Pack as directed Orally , Taking Lisinopril 2.5 MG Tablet TAKE 1 TABLET BY MOUTH EVERY DAY , Not-Taking/PRN Basaglar KwikPen 100 UNIT/ML Solution Pen-injector inject 12 units Subcutaneous at bedtime , Not-Taking/PRN Tiadylt ER 300 MG Capsule Extended Release 24 Hour 1 capsule Orally Once a day Objective: Assessment: * Assessment: 1. T ype 1 diabetes mellitus with diabetic neuropathy, unspecified - E10.40 2 .?Hypertensive heart and chronic kidney disease with heart failure and stage 1 through stage 4 chronic kidney disease, or unspecified chronic kidney disease - I13.0 3 . H yperlipidemia, unspecified - E78.5 4 . B rey mass index [BMI] 23.0-23.9, adult - Z68.23 5 . C hronic kidney disease, stage 3a - N18.31 6 . P olyneuropathy in diseases classified elsewhere - G63 Plan: * Treatment: 2. H ypertensive heart and chronic kidney disease with heart failure and stage 1 through stage 4 chronic kidney disease, or unspecified chronic kidney disease L AB: Hemoglobin A1c (L-517232, Q-496) (Collection Date & Time - 07/03/2024 11:57 AM) L AB: Albumin, Random Urine with Creatinine (Collection Date & Time - 07/03/2024 11:57 AM) L AB: LIPID PANEL (Q-7600) (Collection Date & Time - 07/03/2024 11:57 AM) L AB: COMPREHENSIVE METABOLIC PANEL (Q-65609) (Collection Date & Time - 07/03/2024 11:57 AM) L AB: CBC (INCLUDES DIFF/PLT) (Q-6399) (Collection Date & Time - 07/03/2024 11:57 AM) L AB: VITAMIN B12 (Collection Date & Time - 07/03/2024 11:57 AM) L AB: TSH W/REFLEX TO FT4 (Collection Date & Time - 07/03/2024 11:57 AM) L AB: PTH, INTACT AND CALCIUM (Collection Date & Time - 07/03/2024 11:58 AM) 3. H yperlipidemia, unspecified L AB: Hemoglobin A1c (L-905052, Q-496) (Collection Date & Time - 07/03/2024 11:57 AM) L AB: Albumin, Random Urine with Creatinine (Collection Date & Time - 07/03/2024 11:57 AM) L AB: LIPID PANEL (Q-7600) (Collection Date & Time - 07/03/2024 11:57 AM) L AB: COMPREHENSIVE METABOLIC PANEL (Q-54939) (Collection Date & Time - 07/03/2024 11:57 AM) L AB: CBC (INCLUDES DIFF/PLT) (Q-6399) (Collection Date & Time - 07/03/2024 11:57 AM) L AB: VITAMIN B12 (Collection Date & Time - 07/03/2024 11:57 AM) L AB: TSH W/REFLEX TO FT4 (Collection Date & Time - 07/03/2024 11:57 AM) L AB: PTH, INTACT AND CALCIUM (Collection Date & Time - 07/03/2024 11:58 AM) 4. B rey mass index [BMI] 23.0-23.9, adult L AB: Hemoglobin A1c (L-580515, Q-496) (Collection Date & Time - 07/03/2024 11:57 AM) L AB: Albumin, Random Urine with Creatinine (Collection Date & Time - 07/03/2024 11:57 AM) L AB: LIPID PANEL (Q-7600) (Collection Date & Time - 07/03/2024 11:57 AM) L AB: COMPREHENSIVE METABOLIC PANEL (Q-95335) (Collection Date & Time - 07/03/2024 11:57 AM) L AB: CBC (INCLUDES DIFF/PLT) (Q-6399) (Collection Date & Time - 07/03/2024 11:57 AM) L AB: VITAMIN B12 (Collection Date & Time - 07/03/2024 11:57 AM) L AB: TSH W/REFLEX TO FT4 (Collection Date & Time - 07/03/2024 11:57 AM) L AB: PTH, INTACT AND CALCIUM (Collection Date & Time - 07/03/2024 11:58 AM) 5. C hronic kidney disease, stage 3a L AB: Hemoglobin A1c (L-670355, Q-496) (Collection Date & Time - 07/03/2024 11:57 AM) L AB: Albumin, Random Urine with Creatinine (Collection Date & Time - 07/03/2024 11:57 AM) L AB: LIPID PANEL (Q-7600) (Collection Date & Time - 07/03/2024 11:57 AM) L AB: COMPREHENSIVE METABOLIC PANEL (Q-19811) (Collection Date & Time - 07/03/2024 11:57 AM) L AB: CBC (INCLUDES DIFF/PLT) (Q-6399) (Collection Date & Time - 07/03/2024 11:57 AM) L AB: VITAMIN B12 (Collection Date & Time - 07/03/2024 11:57 AM) L AB: TSH W/REFLEX TO FT4 (Collection Date & Time - 07/03/2024 11:57 AM) L AB: PTH, INTACT AND CALCIUM (Collection Date & Time - 07/03/2024 11:58 AM) 6. P olyneuropathy in diseases classified elsewhere L AB: Hemoglobin A1c (L-361357, Q-496) (Collection Date & Time - 07/03/2024 11:57 AM) L AB: Albumin, Random Urine with Creatinine (Collection Date & Time - 07/03/2024 11:57 AM) L AB: LIPID PANEL (Q-7600) (Collection Date & Time - 07/03/2024 11:57 AM) L AB: COMPREHENSIVE METABOLIC PANEL (Q-50395) (Collection Date & Time - 07/03/2024 11:57 AM) L AB: CBC (INCLUDES DIFF/PLT) (Q-6399) (Collection Date & Time - 07/03/2024 11:57 AM) L AB: VITAMIN B12 (Collection Date & Time - 07/03/2024 11:57 AM) L AB: TSH W/REFLEX TO FT4 (Collection Date & Time - 07/03/2024 11:57 AM) L AB: PTH, INTACT AND CALCIUM (Collection Date & Time - 07/03/2024 11:58 AM) * Labs: * L ab: SPECIMEN INTEGRITY COMPROMISED (Collection Date & Time - 07/03/2024 11:57 AM) * Procedure Codes: 3 6415 VENIPUNCT, ROUTINE* * * Electronic signature of Cecilia Chávez DO on 01/05/2025 at 03:04 PM EDT Sign off status: Pending * Provider: Danna Chávez DO Date: 0 07/03/2024 Generated for Jji ng/Meghana/eTransmitting on: 0 01/05/2025 03:04 PM EDT
--- OUTSIDE RECORDS SUMMARY | 2024-07-09 07:00 | XMS_ITS ---
Author Organization [employer] Address [address] [facility] [address] [place] [address] Care Team Providers Care Remote Sensing Scientist Name Role Phone Keanu Chávez Primary Care Provider [phone] Marcello Culp [phone] REASON FOR VISIT Follow up+ labs Social History Sex Assigned At : Social History Observation Description Sex Assigned At Female Encounters Encounter Location Date Provider Diagnosis [facility] [address] [place] [address] 07/09/2024 Keanu Chávez Plan Of Treatment Next Appt Details Provider Name:Marcello Casperarco, 03/02/2025 11:00:00 AM, [address] [place] [address], [facility] [address], [address], Progress Notes * CLARISADAVIDHUSSAIN DanaDOB:1 (84 yo F)Acc No.[id number]:07/09/2024 Progress Notes Patient: Dana JACKMAN Provider: Danan Chávez DO :1940 A ge:84 Y S ex:Female Date:07/09/2024 Address:[address], [place], [place] Subjective: * Chief Complaints: * 1 . Follow up+ labs. * Medical History: Objective: Assessment: Plan: * Treatment: * * Electronic signature of Cecilia Chávez DO on 01/05/2025 at 03:04 PM EDT Sign off status: Pending * Provider: Danna Chávez DO Date: 0 07/09/2024 Generated for Kishor cr/Meghana/Brian on: 0 01/05/2025 03:04 PM EDT
[2025-01-05 13:03] VITALS: BP 100/52; PULSE 71; O2SAT 92; BMI 26.0
--- NOTE | 2025-01-05 13:03 | MHC.OFFVIS ---
Vital Signs 01/05/25 13:03 Height 5 ft 1 in Weight 137 lb 9.095 oz BMI 26.0 BP 100/52 L Blood Pressure Location Lt brachial Position Sitting Pulse 71 Pulse Source Pulse Oximeter Pulse Oximetry (%) 92 Oxygen Delivery Method Room Air Intake Visit Reasons: T2DM Intake Note: Patient present today for Type 2 Diabetes Mellitus Last Diabetic eye exam: Last exam was on 08/2023, patient will be scheduling cristofer for this year. 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 blood-glucose meter ([employer] Verio Flex Meter) Use as directed blood-glucose sensor ([employer] Serafin 3 Plus Sensor device) Apply 1 new sensor every 15 days as directed to monitor blood glucose continuously. blood-glucose,traffic representative,cont (FreeStyle Serafin 3 [place]) Use daily to monitor blood glucose levels continuously. clobetasol 0.05% 1 appl topical BID digoxin 62.5 mcg PO DAILY diltiazem HCl CD 300 mg PO DAILY famotidine 20 mg PO DAILY furosemide 20 mg PO DAILY gabapentin 100 mg PO TID glucagon 3 mg/actuation (Baqsimi) 3 mg intranasal ONCE hydralazine 75 mg PO BID insulin aspart U-100 8 units (0.08 mL) subcut TID insulin degludec (Tresiba FlexTouch U-200 insulin) 16 units (0.08 mL) subcut BEDTIME lancets ([employer] Avenue[employer] Delica Plus Lancet) Use as directed to check blood glucose four times daily. levofloxacin mg PO ickglj-hbhxvqjy-pscaqhr 24,000-76,000 -120,000 unit (Creon) 1 cap PO BID lisinopril 2.5 mg PO DAILY metoprolol tartrate 150 mg PO pantoprazole 40 mg PO DAILY pen needle, diabetic (BD Kerry 2nd Gen Pen Needle) Use to administer insulin four times daily. 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 Last seen by Kyara JOSEPH in August 2024 Per previous notes she has pancreatic diabetes with multiple complications and no beta cell reserve likely due to pancreatic surgery. She spends 6 months in [place]. She returned to [place] in August 2024. 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 Hemoglobin A1c 11.1% 01/05/25 POC 10.1% September 2024 with target <8.5%. 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 [phone] Dr. Robbi Betancourt 2 downloaded from December 23 to 01/05/2025 Time CGM active 62% Average glucose 292 mg/dL Variability 3rd 9.4% Within target range 20% High 16% Very high 64% Low 0% Very low 0% Interpretation: She remains hyperglycemic most of the day 08:00 onwards. Blood sugars do drop overnight. Much improved hypoglycemia. In the past she had hypoglycemia with a glucose level of 40 and had no symptoms with it. Has nasal glucagon prescribed. Micro and macrovascular complications: Last eye visit: Done in [place] 09/21. No retinopathy per patient. Does have nephropathy, last EGFR reported as 56 from 2022??/ no recent microalbumin in the chart, Does have neuropathy (plantar surfaces of feet). Podiatry: Does not have anesthesiology physician Does have peripheral vascular disease. No history of stroke or heart attack. Diabetes medications: Current regimen: Insulin aspart 8 units before breakfast and lunch and dinner ( but sometimes skips) Tresiba 16 units AM She reports eating 3 meals per day. She eats ice cream regularly. Physical exam: Constitutional: Alert, in no distress. Eyes: Pupils are equal, round and reactive to light. Extraocular muscles intact. Neck: Supple, Full range of motion. No lymphadenopathy. Respiratory: Clear to auscultation. Cardiovascular: S1 S2 regular. No murmurs. Right foot: Done August 2024 Warm and well perfused. No clubbing, cyanosis or edema. Intact DP pulse. Decreased vibratory sensation. Intact sensation to monofilament. No open wounds. Left foot: Done August 2024 Warm and well perfused. No clubbing, cyanosis or edema. Intact DP pulse. Decreased vibratory sensation. Intact sensation to monofilament. No open wounds. Laboratory Tests 02/17/21 02/17/21 03/02/22 08:05 Unknown 10:44 Hgb Hct Plt Count Creatinine Estimated GFR Glucose (Clinic) Hgb A1c (Clinic) 8.2 H C-Peptide AST ALT Triglycerides 90 Cholesterol 155 LDL Cholesterol, Calc 71 HDL Cholesterol 66 Urine Creatinine 127.92 Urine Microalbumin 60.0 Microalb/Creat Ratio 46.9 01/10/23 01/22/23 11/23/23 05:00 04:30 11:10 Hgb 13.8 Hct 43.2 Plt Count 241 D Creatinine 0.95 Estimated GFR 56 Glucose (Clinic) Hgb A1c (Clinic) 9.8 H C-Peptide AST 72 H ALT 49 H Triglycerides Cholesterol LDL Cholesterol, Calc HDL Cholesterol Urine Creatinine Urine Microalbumin Microalb/Creat Ratio 02/19/24 10/07/24 11/11/24 09:31 10:01 11:20 Hgb Hct Plt Count Creatinine Estimated GFR Glucose (Clinic) 184 H Hgb A1c (Clinic) 9.9 H 10.1 H C-Peptide AST ALT Triglycerides Cholesterol LDL Cholesterol, Calc HDL Cholesterol Urine Creatinine Urine Microalbumin Microalb/Creat Ratio 11/11/24 12:10 Hgb Hct Plt Count Creatinine Estimated GFR Glucose (Clinic) Hgb A1c (Clinic) C-Peptide 0.48 L AST ALT Triglycerides Cholesterol LDL Cholesterol, Calc HDL Cholesterol Urine Creatinine Urine Microalbumin Microalb/Creat Ratio [facility] Medical History (Updated 10/07/24 @ 11:18 by JAKE Vaca) History of hypoglycemia Neuropathy of both feet Osteoporosis 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 Social History Household Members: Other Household Members Other:: Lives with [facility] Alcohol intake: former Patient Tobacco Use Status: Former Tobacco user Physical Exam Vital Signs: Last Vital Signs Pulse 71 01/05/25 13:03 BP 100/52 L 01/05/25 13:03 Pulse Ox 92 01/05/25 13:03 Oxygen Delivery Method Room Air 01/05/25 13:03 BMI result Body Mass Index 26.0 Office Procedures Glucose Monitoring Details Details: See [facility] [address] - Glucose monitoring, continuous-physician I&R Procedure code (CPT) selection complete Results AMB Hemoglobin A1c AMB Hemoglobin A1c 11.0 % Last Edit by EMANUEL Pino on 01/05/25 13:20 Results Reviewed Results Reviewed: Laboratory Last Values Glucose (Clinic) 262 mg/dL (60-115) H 01/05/25 13:11 Assessment & Plan Assessment & Plan (1) 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: Code(s): E13.9 - Other specified diabetes mellitus without complications; S36.209S - Unspecified injury of unspecified part of pancreas, sequela Category: Medical Plan: See below (2) CKD stage 3 due to type 2 diabetes mellitus: Code(s): E11.22 - Type 2 diabetes mellitus with diabetic chronic kidney disease; N18.30 - Chronic kidney disease, stage 3 unspecified Category: Medical Plan: See below (3) History of hypoglycemia: Code(s): Z86.39 - Personal history of other endocrine, nutritional and metabolic disease Category: Medical Plan: See below (4) Diabetes type 2, uncontrolled: Code(s): E11.65 - Type 2 diabetes mellitus with hyperglycemia Category: Medical Qualifiers: Glycemic state: with hyperglycemia Qualified Code(s): E11.65 - Type 2 diabetes mellitus with hyperglycemia Plan: 84-year-old female with 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 With complications of nephropathy, neuropathy and PVD A1c elevated at 11.1% 01/05/25 POC which is worsened from 10.1% from September 2024. She is using [employer] Serafin 2, previously prescriptions to pharmacy has been sent for Serafin 3+, DME paperwork was sent in October 2024, patient has not heard from them. She already has a appointment 01/07/2025 with music educator for CGM upgrade teaching. CGM data downloaded today and shows she is mostly hyperglycemic throughout the day with a dip in her sugars overnight. Apparently when she last saw the educator in November 2024 she was having some overnight hypoglycemia so Tresiba was reduced to 14 units. But patient is telling me she has been taking 16 units but today I only see hyperglycemia mostly. She is not very consistent with taking the mealtime insulin. I have just asked her to be more consistent with her regimen. She has prescription of glucose tablets with her has prescription of Baqsimi. i. This is medically necessary as she has had severe hypoglycemia with no symptoms historically. She also has a history of CKD, no recent kidney function in the chart, these have been ordered previously in patient was again reiterated today importance of doing labs. Plan: -continue Tresiba to 16 units daily -continue insulin aspart to 8 units t.i.d. before meals, do not take if blood sugar less than 100 -upgrade to imoji 3+ sensor messaged staff and already referral for music educator -hypoglycemia education reviewed -she has not had any recent blood work, again reiterated to her importance of doing fasting blood work and urine test which has been due Follow up in 4 weeks for diabetic management. Written instructions were provided to the patient. (5) long term care phlebotomist (current) use of insulin: Code(s): Z79.4 - long term care phlebotomist (current) use of insulin Category: Medical Plan: See above (6) Dyslipidemia: Code(s): E78.5 - Hyperlipidemia, unspecified Category: Medical Plan: No recent lipid panel in the chart, ordered lipid panel Plan I spent 30 minutes in reviewing the record, seeing the patient and documenting in the medical record. Orders: Orders AMB Hemoglobin A1c Today E11.65 - Type 2 diabetes mellitus with hyperglycemia, Z13.9 - Encounter for screening, unspecified AMB Glucose Monitoring Today E11.65 - Type 2 diabetes mellitus with hyperglycemia, E13.9 - Other specified diabetes mellitus without complications, S36.209S - Unspecified injury of unspecified part of pancreas, sequela, Z79.4 - long term care phlebotomist (current) use of insulin, Z86.39 - Personal history of other endocrine, nutritional and metabolic disease Patient Instructions: Administer insulin aspart 8 units 3 times daily 5-10 minutes before meals. Do not administer if blood sugar is less than 100. 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
[2025-01-05 13:15] LABS: Glucose, Whole Blood 262 mg/dL (60-115)
--- OUTSIDE RECORDS SUMMARY | 2025-01-05 15:04 | XMS_ITS | Encounter Summary ---
Author Organization [facility] Address [address] [place] [id number] Phone Care Team Providers Care Core Java Engineer Name Role Phone Marco Antonio Bolaños MD Primary Care Provider Unavail able Encounter Details Date Type Department Care Team (Late st Contact Info) Description 02/05/2018 Procedure [facility] [address] [place] [address] Social History Tobacco Use Types Packs/Day Years Used Date Smoking Tobacco: Former Cigarettes Smokeless Tobacco: Never Comments:quit 20 yrs ago Alcohol Use Standard Drinks/Week Comments Yes 0 (1 standard drink = 0.6 oz pur e alcohol) rarely Comments Unknown Sex and Gender Information Value Date Recorded Sex Assigned at Not on file Legal Sex Female 10:38 PM EDT Gender Identity Not on file Sexual Orientation Not on file documented as of this encounter Plan of Treatment Not on file documented as of this encounter Visit Diagnoses Not on filedocumented in this encounter Care Teams Core Java Engineer Relationship Specialty Start Date End Date Marco Antonio Bolaños MD PCP - General Endocrinology 01/24/18 documented as of this encounter Additional Source Comments The information contained in this document represents components of the legal health record. It is not the complete legal health record.[facility]
--- OUTSIDE RECORDS SUMMARY | 2025-01-05 15:04 | XMS_ITS | Clinical Summary ---
Author Organization [facility] Address [address] [place] [phone] Phone Care Team Providers Care Data Input Clerk Name Role Phone Mario Parker MD Primary Care Provider [phone] Allergies Active Allergy Reactions Criticality Noted Date [...] Units under the skin. 1 Active pancrelipase, Eud-Wpvw-Miks, (Creon) 24,000-76,000 -120,000 unit capsule Take 1 [...] Date Diagnosed Date CHF (congestive heart failure) ([facility] V24, [facility] V28) 02/03/2021 Overview (02/06/2024): Chronic diastolic heart failure. Follows with [facility] on a 6-month basis. PAD (peripheral artery disease) ([facility] V24) Atrial fibrillation ([facility] [place], [facility] V28) 0 09/30/2015 CKD (chronic kidney disease) stage 3, GFR 30-59 ml/min ([facility] V24, [facility] V28) 10/07/2013 Overview (02/06/2024): GFR 58 on 01/09/12 DM Type II diabetes mellitus wi th renal manifestations ([facility] V24, [facility] V28) 10/07/2013 Overview (02/06/2024): 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 (02/06/2024): 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 Hyperlipidemia with target LDL less than 100 Overview (02/06/2024): IMO update Cyst of Bartholin's gland 01/17/2006 Diffuse cystic mastopathy 01/17/2006 Esophageal reflux 01/17/2006 Essential hypertension, benign 01/17/2006 Hemorrhage of gastrointestinal tract 01/17/2006 Overview (02/06/2024): IMO update Pancreatic steatorrhea 01/17/2006 Encounters Date Type Department Care Team Description 12/22/2024 11:28 AM EDT - 12/22/2024 12:04 PM EDT Emergency [facility] [address] [place] [phone] Betito Velez MD Visit for suture removal (Primary Dx) Discharge Disposition: Home or Self Care 12/17/2024 10:44 AM EDT - 12/17/2024 1:40 PM EDT Emergency [facility] [address] [place] [phone] Mario Draper MD Closed head injury, initial encounter (Primary Dx); Fall, initial encounter; Laceration of forehead, initial encounter; Anticoagulated on apixaban Discharge Disposition: Home or Self Care 12/17/2024 7:45 AM EDT Ancillary Procedure [facility] [address] [place] [address] [place] [phone] S/P femoral-femoral bypass surgery; PAD (peripheral artery disease) ([facility] V24) from Last 3 Months Immunizations Name Administration Dates Next Due Influenza [...] Site/Laterality Comments OTHER SURGICAL HISTORY 10/29/1999 PROCEDURE: HI EXCISION LESION PANCREAS TONSILLECTOMY ADENOIDECTOMY, BILATERAL MYRINGOTOMY AND TUBES PROCEDURE: HI TONSILLECTOMY & ADENOIDECTOMY <AGE 10 CHOLECYSTECTOMY PROCEDURE: HI LAPAROSCOPY SURG CHOLECYSTECTOMY KNEE SURGERY PROCEDURE: HISTORICAL KNEE SURGERY; COMMENT: left, arthroscopy BREAST BIOPSY 40yrs ago Left PROCEDURE: BX BREAST; PERC NEEDLE CORE W/IMAG GUID OTHER SURGICAL HISTORY 12/14/2022 PROCEDURE: HI SLCTV CATHJ 2ND ORDER ABDL PEL/LXTR ART BRNCH OTHER SURGICAL HISTORY 12/14/2022 PROCEDURE: HI THROMBOLYSIS ARTERIAL INFUSION ICRA RS&I INIT TX OTHER SURGICAL HISTORY 12/14/2022 PROCEDURE: ULTRASOUND GUIDANCE FOR VASCULAR AC OTHER SURGICAL HISTORY 12/14/2022 PROCEDURE: HI CESSATION THROMBOLYTIC THER W/CATHETER REMOVAL OTHER SURGICAL HISTORY 12/14/2022 Left PROCEDURE: HI RPR BLOOD VESSEL DIRECT LOWER EXTREMITY OTHER SURGICAL HISTORY 12/14/2022 Left PROCEDURE: HI REVSC OPN/PRQ ILIAC ART W/STNT PLMT & ANGIOPLSTY OTHER SURGICAL HISTORY 12/14/2022 Right PROCEDURE: HI TEAEC W/WO PATCH GRAFT COMMON FEMORAL OTHER SURGICAL HISTORY 12/14/2022 PROCEDURE: HI BYP OTH/THN VEIN FEMORAL-FEMORAL Medical History Medical [...] disea se) stage 3, GFR 30-59 ml/min (HCC) Family History Medical History Relation Name Comments [...] Sign Reading Time Taken Comments Blood Pressure 122/59 12/22/2024 11:18 AM EDT Pulse 71 12/22/2024 11:18 AM EDT Temperature 36.6 C (97.9 F) 12/22/2024 11:18 AM EDT Respiratory Rate 18 12/22/2024 11:18 AM EDT Oxygen Saturation 99% 12/22/2024 11:18 AM EDT Inhaled Oxygen Concentration - - Weight 56.2 kg (124 lb) 12/22/2024 11:18 AM EDT Height 154.9 cm (5' 1 ) 12/22/2024 11:18 AM EDT Body Mass Index 23.43 12/22/2024 11:18 AM EDT Plan of Treatment Upcoming Encounters Date Type Department Care Team (Late st Contact Info) Description 01/26/2025 3:30 PM EDT Office Visit Vascular Surgery - [place] [address] [place] [phone] Ramiro Turner MD [address] [place] [phone] Health Maintenance Due Date Last Done Comments RSV Immunization Adult Patients (1 - 1-dose [...] Cholesterol Screening (Lipid Panel) 11/09/2024 11/10/2019, 11/10/2019 COVID-19 Vaccine ( - season) 2024 06/23/2020, 06/22/2020, 06/02/2020 Influenza Vaccine (#1) 2024 , 02/20/2022, 02/08/2021, Additional history exists Hypertension/CHF/CAD Annual BMP Blood Test 12/17/2025 12/17/2024, 02/06/2024, 02/06/2024 DTaP,Tdap,and Td Vaccines (4 - Td or Tdap) 02/02/2027 02/02/2017, 12/06/2007, 12/06/2007, Additional history exists HIB Vaccines Aged Out No longer eligi [...] Procedure Name Priority Date/Time Associated Diagnosis Comments SUTURE REMOVAL Routine 12/22/2024 3:09 PM EDT ECG ANNOTATED 12/18/2024 RHYTHM ECG, REPORT Routine 12/17/2024 1: 36 PM EDT HC REPAIR WOUND LEVEL 1 Routine 12/17/2024 1:03 PM EDT HI REPAIR SPRFCL WOUNDS SIMPLE SCALP/NECK/AXILLAE/GEN T/TRUNK/EXT <= 2.5 CM Routine 12/17/2024 1:03 PM EDT ECG 12-LEAD STAT 12/17/2024 12:01 PM EDT COMPREHENSIVE METABOLIC PANEL STAT 12/17/2024 11:[address] MAXILLOFACIAL WO CONTRAST STAT 12/17/2024 11:[address] CERVICAL SPINE WO CONTRAST STAT 12/17/2024 11:[address] HEAD WO CONTRAST STAT 12/17/2024 1 1:29 AM EDT CBC WITH AUTO DIFFERENTIAL STAT 12/17/2024 11:07 AM EDT CBC AND DIFFERENTIAL STAT 12/17/2024 11:07 AM EDT HI CRITICAL CARE 30-74 MINUTES Routine 12/17/2024 10:39 AM EDT HEMOGLOBIN A1C Routine 06/24/2020 DX MAMMO INCL CAD BI Routine 12/25/2019 9:28 AM EDT Inconclusive mammogram LIPID PANEL Routine 11/10/2019 from Last 3 Months or Most Recently Relevant to Health Maintenance Results * SUTURE REMOVAL (12/22/2024 3:09 PM EDT) Betito Kennedy MD - 12/22/2024 3:09 PM EDT Betito Velez MD 12/22/2024 3:10 PM Suture Removal Date/Time: 12/22/2024 3:09 PM Performed by: Betito Velez MD Authorized by: Betito Velez MD Consent: Consent obtained: Verbal Consent given by: Patient Risks, benefits, and alternatives were discussed: yes Risks discussed: Bleeding Alternatives discussed: No treatment Whitman protocol: Patient identity confirmed: Verbally with patient Location: Location: Head/neck Head/neck location: Forehead Procedure details: Wound appearance: No signs of infection, good wound healing and clean Number of sutures removed: 3 Post-procedure details: Post-removal: Antibiotic ointment applied Procedure completion: Tolerated well, no immediate complications us Betito Velez MD IN CLINIC/BEDSIDE ORDERABLES Fin al Result * ECG-Annotated (12/18/2024) us Provider Onbase ECG ORDERABLES Final Result * RHYTHM ECG, REPORT (12/17/2024 1:36 PM EDT) Narrative Mario Draper MD - 12/17/2024 1:36 PM EDT Mario Draper MD 12/17/2024 1:36 PM ECG Rhythm Interpretation and Report Date/Time: 12/17/2024 1:36 PM Performed by: Mario Draper MD Authorized by: Mario Draper MD Comments: A-fib rate of 73 with frequent ventricularly paced complexes, overall similar in appearance to 10/05/2023 us Mario Draper MD ECG ORDERABLES Final Result * HI REPAIR SPRFCL WOUNDS SIMPLE SCALP/NECK/AXILLAE/GENT/TRUNK/EXT <= 2.5 CM, HC REPAIR WOUND LEVEL 1 (12/17/2024 1:03 PM EDT) Narrative Mario Draper MD - 12/17/2024 1:03 PM EDT Mario Draper MD 12/17/2024 1:36 PM Laceration Repair Date/Time: 12/17/2024 1:03 PM Performed by: Mario Draper MD Authorized by: Mario Draper MD Consent: Consent obtained: Verbal Consent given by: Patient Risks discussed: Pain and poor cosmetic result Whitman protocol: Patient identity confirmed: Verbally with patient Anesthesia: Anesthesia method: Local infiltration Local anesthetic: Lidocaine 1% w/o epi Laceration details: Location: Scalp Scalp location: Frontal Length (cm): 2.5 Exploration: Imaging obtained comment: CT Treatment: Area cleansed with: Soap and water Amount of cleaning: Standard Irrigation solution: Tap water Skin repair: Repair method: Sutures and Steri-Strips Suture size: 4-0 Suture material: Nylon Suture technique: Simple interrupted Number of sutures: 3 Number of Steri-Strips: 5 Approximation: Approximation: Close Repair type: Repair type: Simple Post-procedure details: Dressing: Open (no dressing) Procedure completion: Tolerated well, no immediate complications us Mario Draper MD IN CLINIC/BEDSIDE ORDERABLES Edited Result - Final * ECG 12 lead (12/17/2024 12:01 PM EDT) Ventricular Rate ECG 73 BPM GEMUSE QRS Duration 70 ms GEMUSE Q-T Interval 384 ms GEMUSE QTc 423 ms GEMUSE R [place] 83 degrees GEMUSE T [place] 116 degrees GEMUSE ECG Interpretation Atrial fibrillation with a demand pacemaker Abnormal ECG When compared with ECG of 05-OCT-2023 08:07, demand pacemaker is now present Confirmed by Ruddy CORTES JOHN ([id number]) on 12/17/2024 5:46:14 PM GEMUSE 12/17/2024 12:0 1 PM EDT 12/17/2024 5:46 PM EDT us Mario Draper MD ECG ORDERABLES Final Result GEMUSE * (ABNORMAL) Comprehensive metabolic panel (12/17/2024 11:55 AM EDT) Sodium 139 133 - 145 mmol/L LAB CHEMISTRY METHOD 12/17/2024 12:54 PM EDT [facility] Potassium 3.4(L) 3.5 - 5.5 mmol/L LAB CHEMISTRY METHOD 12/17/2024 12:54 PM [facility] Chloride 104 96 - 110 mmol/L LAB CHEMISTRY METHOD 12/17/2024 12:54 PM [facility] CO2 31 21 - 32 mmol/L LAB CHEMISTRY METHOD 12/17/2024 12:54 PM [facility] Anion Gap 4 3 - 11 LAB CHEMISTRY METHOD 12/17/2024 12:54 PM [facility] Glucose 249(H) 70 - 100 mg/dL LAB CHEMISTRY METHOD 12/17/2024 12:54 PM [facility] BUN 18 5 - 25 mg/dL LAB CHEMISTRY METHOD 12/17/2024 12:54 PM [facility] Creatinine 1.22(H) 0.50 - 1.10 mg/dL LAB CHEMISTRY METHOD 12/17/2024 12:54 PM [facility] eGFR 43(L) >=60 mL/min/1. 73m2 LAB CHEMISTRY METHOD 12/17/2024 12:54 PM [facility] Comment:Calculation based on the Chronic Kidney Disease Epidemiology Collaboration (CKD-EPI) equation refit without adjustment for race. BUN/Creatinine Ratio 14.8 LAB CHEMISTRY METHOD 12/17/2024 12:54 PM [facility] Calcium 8.9 8.5 - 10.5 mg/dL LAB CHEMISTRY METHOD 12/17/2024 12:54 PM [facility] AST (SGOT) 26 10 - 42 unit/L LAB CHEMISTRY METHOD 12/17/2024 12:54 PM [facility] ALT (SGPT) 20 10 - 60 unit/L LAB CHEMISTRY METHOD 12/17/2024 12:54 PM [facility] Alkaline Phosphatase 156(H) 42 - 121 unit/L LAB CHEMISTRY METHOD 12/17/2024 12:54 PM [facility] Total Protein 6.4 6.0 - 8.0 g/dL LAB CHEMISTRY METHOD 12/17/2024 12:54 PM EDT [facility] Albumin 3.1(L) 3.2 - 5.0 g/dL LAB CHEMISTRY METHOD 12/17/2024 12:54 PM EDT [facility] Total Bilirubin 0.6 0.0 - 1.4 mg/dL LAB CHEMISTRY METHOD 12/17/2024 12:54 PM EDT [facility] Blood Venous blood specimen / Unknown Venipuncture / Unknown 12/17/2024 11:55 AM EDT 12/17/2024 12:11 PM EDT us Mario Draper MD LAB BLOOD ORDERABLES Final Re sult [facility] [address] [place] [address], * CT Cervical Spine wo Contrast (12/17/2024 11:29 AM EDT) Anatomical Region Laterality Modality Spine, C-spine Computed Tomogra phy 12/17/2024 11:5 9 AM EDT Impressions 12/17/2024 12:04 PM EDT Impression: 1. No evidence of cervical spine fracture or traumatic subluxation. 2. Severe cervical spondylosis and degenerative disc disease, with degenerative subluxations and bilateral bony neural foraminal narrowing. 3. Bilateral pleural effusions, partially imaged. Telerad JAKE ([id number]) -------- FINAL REPORT -------- Dictated By: Jessie Romero Dictated Date: 12/17/2024 11:59 ET Assigned Physician: Jessie Romero Reviewed and Electronically Signed By: Jessie Romero Signed Date: 12/17/2024 12:04 ET Workstation ID: [id number] Transcribed By: Self Edit Transcribed Date: 12/17/2024 11:59 ET Narrative 12/17/2024 12:04 PM EDT History: Neck pain after fall. Comparison: No comparison imaging at this institution. Technique: Helical volumetric imaging of the cervical spine was performed. DLP: 544.97 mGy/cm [employer] [place] Iterative reconstruction technique Findings: The craniocervical articulations are well-maintained. The odontoid process is intact and no abnormal widening of the predental distance is identified. The cervical vertebral bodies maintain normal height. The apophyseal joints are intact. Incidental nuchal ligament calcification is seen. There is loss of disc height, worst at C3-C4, C5-C6 and C6-C7, consistent with degenerative disc disease. Anterior vertebral endplate and uncovertebral spurring is noted. There are severe arthritic changes in the apophyseal joints bilaterally. There are mild degenerative subluxations at C2-C3, C3-C4 and C4-C5. Vertebral alignment is otherwise normal. Bilateral bony neural foraminal narrowing is seen due to combinations of facet and uncovertebral hypertrophy, worst at C3-C4 and C5-C6. There is no significant bony encroachment upon the central spinal canal. No prevertebral soft tissue swelling is seen. Bilateral pleural effusions are partially imaged. Procedure Note Jessie Romero MD - 12/17/2024 History: Neck pain after fall. Comparison: No comparison imaging at this institution. Technique: Helical volumetric imaging of the cervical spine wasperformed. DLP: 544.97 mGy/cm [employer] Iterative reconstruction technique Findings: The craniocervical articulations are well-maintained. The odontoid processis intact and no abnormal widening of the predental distance isidentified. The cervical vertebral bodies maintain normal height. The apophysealjoints are intact. Incidental nuchal ligament calcification is seen. There is loss of disc height, worst at C3-C4, C5-C6 and C6-C7, consistentwith degenerative disc disease. Anterior vertebral endplate anduncovertebral spurring is noted. There are severe arthritic changes in theapophyseal joints bilaterally. There are mild degenerative subluxations atC2-C3, C3-C4 and C4-C5. Vertebral alignment is otherwise normal. Bilateral bony neural foraminal narrowing is seen due to combinations offacet and uncovertebral hypertrophy, worst at C3-C4 and C5-C6. There is nosignificant bony encroachment upon the central spinal canal. No prevertebral soft tissue swelling is seen. Bilateral pleural effusionsare partially imaged. IMPRESSION: Impression: 1. No evidence of cervical spine fracture or traumatic subluxation. 2. Severe cervical spondylosis and degenerative disc disease, withdegenerative subluxations and bilateral bony neural foraminal narrowing. 3. Bilateral pleural effusions, partially imaged. Telerad PA ([id number]) -------- FINAL REPORT -------- Dictated By: Jessie Romero Dictated Date: 12/17/2024 11:59 ET Assigned Physician: Jessie Romero Reviewed and Electronically Signed By: Jessie Romero Signed Date: 12/17/2024 12:04 ET Workstation ID: [id number] Transcribed By: Self Edit Transcribed Date: 12/17/2024 11:59 ET us Mario Draper MD IMG CT PROCEDURES Final Resul t * CT Maxillofacial wo Contrast (12/17/2024 11:29 AM EDT) Anatomical Region Laterality Modality Head and Neck Computed Tomogra phy 12/17/2024 12:0 4 PM EDT Impressions 12/17/2024 12:06 PM EDT Impression: 1. No facial bone fracture identified. 2. Chronic right maxillary sinusitis. 3. Right frontal scalp contusion. Telerad PA ([id number]) -------- FINAL REPORT -------- Dictated By: Jessie Romero Dictated Date: 12/17/2024 12:04 ET Assigned Physician: Jessie Romero Reviewed and Electronically Signed By: Jessie Romero Signed Date: 12/17/2024 12:06 ET Workstation ID: [id number] Transcribed By: Self Edit Transcribed Date: 12/17/2024 12:04 ET Narrative 12/17/2024 12:06 PM EDT History: Facial trauma (fall). Technique: Helical volumetric imaging of the facial bones was performed. DLP: 297.78 mGy/cm [employer] Iterative reconstruction technique Findings: No facial bone fracture is identified. Specifically, the saleh of the orbits and maxillary sinuses are intact. The temporomandibular joints are well-maintained. No mandible fracture is seen. The zygomatic arches and pterygoid plates are intact. No nasal bone fracture is seen. There is extensive partial opacification of the right maxillary sinus, with heterogeneous attenuation of the sinus contents and thickening of the sinus wall, consistent with chronic sinusitis. The orbital contents are unremarkable. There is high density soft tissue swelling within the right frontal scalp, extending to the preseptal space of the right orbit, consistent with contusion in this setting. Procedure Note Jessie Romero MD - 12/17/2024 History: Facial trauma (fall). Technique: Helical volumetric imaging of the facial bones was performed. DLP: 297.78 mGy/cm [employer] Skin Iterative reconstruction technique Findings: No facial bone fracture is identified. Specifically, the saleh of theorbits and maxillary sinuses are intact. The temporomandibular joints arewell-maintained. No mandible fracture is seen. The zygomatic arches andpterygoid plates are intact. No nasal bone fracture is seen. There is extensive partial opacification of the right maxillary sinus,with heterogeneous attenuation of the sinus contents and thickening of thesinus wall, consistent with chronic sinusitis. The orbital contents are unremarkable. There is high density soft tissue swelling within the right frontal scalp,extending to the preseptal space of the right orbit, consistent withcontusion in this setting. IMPRESSION: Impression: 1. No facial bone fracture identified. 2. Chronic right maxillary sinusitis. 3. Right frontal scalp contusion. Telerad JAKE ([id number]) -------- FINAL REPORT -------- Dictated By: Jessie Romero Dictated Date: 12/17/2024 12:04 ET Assigned Physician: Jessie Romero Reviewed and Electronically Signed By: Jessie Romero Signed Date: 12/17/2024 12:06 ET Workstation ID: [id number] Transcribed By: Self Edit Transcribed Date: 12/17/2024 12:04 ET us Mario Draper MD IMG CT PROCEDURES Final Resul t * CT Head wo Contrast (12/17/2024 11:29 AM EDT) Anatomical Region Laterality Modality Head and Neck Computed Tomogra phy 12/17/2024 11:4 0 AM EDT Impressions 12/17/2024 11:43 AM EDT Impression: 1. No acute intracranial hemorrhage or mass effect. 2. Right frontal scalp contusion. 3. Chronic right maxillary sinusitis. Mele JOSEPH ([id number]) -------- FINAL REPORT -------- Dictated By: Jessie Romero Dictated Date: 12/17/2024 11:40 ET Assigned Physician: Jessie Romero Reviewed and Electronically Signed By: Jessie Romero Signed Date: 12/17/2024 11:43 ET Workstation ID: [id number] Transcribed By: Self Edit Transcribed Date: 12/17/2024 11:40 ET Narrative 12/17/2024 11:43 AM EDT History: Brain trauma (fall). Patient anticoagulated. Comparison: 10/05/23 Technique: Contiguous axial images were obtained at 2.5 mm intervals through the posterior fossa and at 5 mm intervals through the remainder of the brain without intravenous contrast. DLP: 1000.59 mGy/cm Quantified Skin Iterative reconstruction technique Findings: Moderate generalized cerebral volume loss is probably within normal limits for the stated age. Sheridan-white differentiation is maintained. Tiny chronic lacunar infarcts are seen within the caudate nuclei, without significant change. Bilateral basal ganglia and dentate nucleus calcification is seen, unchanged. No abnormal intra- or extra-axial masses or fluid collections are seen. There is no evidence of acute intracranial hemorrhage. There is focal high density soft tissue swelling within the right frontal scalp, extending to the preseptal soft tissues of the right orbit, consistent with contusion in this setting. No calvarial fracture is seen. There is partial opacification of the right maxillary sinus, with thickening and sclerosis of the sinus saleh, unchanged, consistent with chronic sinusitis. The mastoids are well pneumatized. Procedure Note Jessie Romero MD - 12/17/2024 History: Brain trauma (fall). Patient anticoagulated. Comparison: 10/05/23 Technique: Contiguous axial images were obtained at 2.5 mm intervalsthrough the posterior fossa and at 5 mm intervals through the remainder ofthe brain without intravenous contrast. DLP: 1000.59 mGy/cm [employer] Iterative reconstruction technique Findings: Moderate generalized cerebral volume loss is probably within normal limitsfor the stated age. Sheridan-white differentiation is maintained. Tiny chroniclacunar infarcts are seen within the caudate nuclei, without significantchange. Bilateral basal ganglia and dentate nucleus calcification is seen,unchanged. No abnormal intra- or extra-axial masses or fluid collections are seen.There is no evidence of acute intracranial hemorrhage. There is focal high density soft tissue swelling within the right frontalscalp, extending to the preseptal soft tissues of the right orbit,consistent with contusion in this setting. No calvarial fracture is seen. There is partial opacification of the rightmaxillary sinus, with thickening and sclerosis of the sinus saleh,unchanged, consistent with chronic sinusitis. The mastoids are wellpneumatized. IMPRESSION: Impression: 1. No acute intracranial hemorrhage or mass effect. 2. Right frontal scalp contusion. 3. Chronic right maxillary sinusitis. Telerad [place] ([id number]) -------- FINAL REPORT -------- Dictated By: Jessie Romero Dictated Date: 12/17/2024 11:40 ET Assigned Physician: Jessie Romero Reviewed and Electronically Signed By: Jessie Romero Signed Date: 12/17/2024 11:43 ET Workstation ID: [id number] Transcribed By: Self Edit Transcribed Date: 12/17/2024 11:40 ET Mario Draper MD IMG CT PROCEDURES Final Resul t * (ABNORMAL) CBC auto differential (12/17/2024 11:07 AM EDT) WBC 6.8 4.8 - 10.8 K/mcL LAB HEMETOLOGY METHOD 12/17/2024 11:16 AM EDT [facility] RBC 4.60 3.80 - 4.80 M/mcL LAB HEMETOLOGY METHOD 12/17/2024 11:16 AM EDT [facility] Hemoglobin 14.5 11.5 - 16.0 g/dL LAB HEMETOLOGY METHOD 12/17/2024 11:16 AM EDT [facility] Hematocrit 43.9 35.0 - 47.0 % LAB HEMETOLOGY METHOD 12/17/2024 11:16 AM [facility] MCV 96.3 79.0 - 98.0 FL LAB HEMETOLOGY METHOD 12/17/2024 11:16 AM [facility] MCH 31.8 27.0 - 32.0 pcg LAB HEMETOLOGY METHOD 12/17/2024 11:16 AM [facility] MCHC 33.0 32.0 - 37.0 g/dL LAB HEMETOLOGY METHOD 12/17/2024 11:16 AM [facility] RDW 13.2 11.0 - 15.0 % LAB HEMETOLOGY METHOD 12/17/2024 11:16 AM [facility] Platelets 263 130 - 400 K/mcL LAB HEMETOLOGY METHOD 12/17/2024 11:16 AM [facility] MPV 9.2 7.0 - 11.0 FL LAB HEMETOLOGY METHOD 12/17/2024 11:16 AM [facility] NRBC 0.0 <1.0 % LAB HEMETOLOGY METHOD 12/17/2024 11:16 AM [facility] NRBC Absolute 0.00 <0.10 K/mcL LAB HEMETOLOGY METHOD 12/17/2024 11:16 AM [facility] Neutrophils Relative 72.3 % LAB HEMETOLOGY METHOD 12/17/2024 11:16 AM [facility] Lymphocytes Relative 16.0 % LAB HEMETOLOGY METHOD 12/17/2024 11:16 AM [facility] Monocytes Relative 8.6 % LAB HEMETOLOGY METHOD 12/17/2024 11:16 AM [facility] Eosinophils Relative 1.8 % LAB HEMETOLOGY METHOD 12/17/2024 11:16 AM EDT [facility] Basophils Relative 0.6 % LAB HEMETOLOGY METHOD 12/17/2024 11:16 AM EDT [facility] Immature Granulocytes Relative 0.7 % LAB HEMETOLOGY METHOD 12/17/2024 11:16 AM EDT [facility] Neutrophils Absolute 4.88 1.50 - 7.00 K/mcL LAB HEMETOLOGY METHOD 12/17/2024 11:16 AM EDT [facility] Lymphocytes Absolute 1.08 1.00 - 5.00 K/mcL LAB HEMETOLOGY METHOD 12/17/2024 11:16 AM EDT [facility] Monocytes Absolute 0.58 0.20 - 1.00 K/mcL LAB HEMETOLOGY METHOD 12/17/2024 11:16 AM EDT [facility] Eosinophils Absolute 0.12 0.00 - 0.50 K/mcL LAB HEMETOLOGY METHOD 12/17/2024 11:16 AM EDT [facility] Basophils Absolute 0.04 0.00 - 0.20 K/mcL LAB HEMETOLOGY METHOD 12/17/2024 11:16 AM EDT [facility] Immature Granulocytes Absolute 0.05(H) 0.00 - 0.03 K/mcL LAB HEMETOLOGY METHOD 12/17/2024 11:16 AM EDT [facility] Blood Venous blood specimen / Unknown Venipuncture / Unknown 12/17/2024 11:07 AM EDT 12/17/2024 11:13 AM EDT us Mario Draper MD LAB BLOOD ORDERABLES Final Re sult [facility] [address] [place] [address], * HI CRITICAL CARE 30-74 MINUTES (12/17/2024 10:39 AM EDT) Narrative Mario Draper MD - 12/17/2024 10:39 AM EDT Mario Draper MD 12/17/2024 1:36 PM Critical Care Performed by: Mario Draper MD Authorized by: Mario Draper MD Critical care provider statement: Critical care time (minutes): 33 Total face to face critical care time (minutes): 10 Critical care time was exclusive of: Separately billable procedures and treating other patients and teaching time Critical care was necessary to treat or prevent imminent or life-threatening deterioration of the following conditions: Trauma Critical care was time spent personally by me on the following activities: Blood draw for specimens, ordering and performing treatments and interventions, ordering and review of radiographic studies, ordering and review of laboratory studies, pulse oximetry, re-evaluation of patient's condition, examination of patient and obtaining history from patient or surrogate Face to face critical care was time spent personally by me on the following activities: Examination of patient and obtaining history from patient or surrogate Mario Draper MD IN CLINIC/BEDSIDE ORDERABLES Edited Result - Final * (ABNORMAL) Hemoglobin A1c (06/24/2020) Hemoglobin A1C 9.7(A) <=6.5 % Blood Venous blood specimen / Unknown Historical Provider MD LAB BLOOD ORDERABLES Aurora l Result * [...] % Breast cancer risk category Low (<15%) Jorge Puentes MD IMG BI PROCEDURES Final [...] Recently Relevant to Health Maintenance Insurance MEDICARE [facility] Advance Directives Documents on File 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
--- OUTSIDE RECORDS SUMMARY | 2025-01-05 15:05 | XMS_ITS | Encounter Summary ---
Author Organization [facility] Address [address] [place] [phone] Phone Care Team Providers Care Secretarial Stenographer Name Role Phone Marco Antonio Bolaños MD Primary Care Provider Unavail able Encounter Details Date Type Department Care Team (Late st Contact Info) Description 12/12/2022 Procedure Pass [facility] [address] [place] [address] Social History Tobacco Use Types Packs/Day Years Used Date Smoking Tobacco: Former Cigarettes Q uit: 1999 Smokeless Tobacco: Never Comments:quit 20 yrs ago Alcohol Use Standard Drinks/Week Comments Yes 0 (1 standard drink = 0.6 oz pur e alcohol) very rarely Education Answer Date Recorded Are you interested in more education? Not on pablo e 08/25/2022 Are you concerned about learning? Not on file 08/25/2022 No 08/25/2022 No 08/25/2022 Digital Access Answer Date Recorded No 09/23/2022 No 09/23/2022 Reliable internet access at home? Not on file 09/23/2022 Device with a working camera? Not on file Intimate Partner Violence Answer Date R ecorded Are you denied basic needs s uch as food, clothing, or medical care? No 12/12/2022 In the past 12 months have y ou been in a relationship with a person who hurts, threatens, or tries to control you? No 12/12/2022 Are you denied basic needs s uch as food, clothing, or medical care? No 12/12/2022 In the past 12 months have y ou been in a relationship with a person who hurts, threatens, or tries to control you? No 12/12/2022 Comments No Sex and Gender Information Value Date Recorded Sex Assigned at Not on file Legal Sex Female 10:38 PM EDT Gender Identity Not on file Sexual Orientation Not on file documented as of this encounter Plan of Treatment Not on file documented as of this encounter Visit Diagnoses Not on filedocumented in this encounter Care Teams Secretarial Stenographer Relationship Specialty Start Date End Date Marco Antonio Bolaños MD PCP - General Endocrinology 01/24/18 documented as of this encounter Additional Source Comments The information contained in this document represents components of the legal health record. It is not the complete legal health record.[facility]
--- OUTSIDE RECORDS SUMMARY | 2025-01-05 15:05 | XMS_ITS | Encounter Summary ---
Author Organization [facility] Address [address] [place] [id number] Phone Care Team Providers Care Tier Lift Operator Name Role Phone Marco Antonio Bolaños MD Primary Care Provider Unavail able Encounter Details Date Type Department Care Team (Late st Contact Info) Description 05/11/2020 Procedure Pass [facility] Cardiovascular [facility] Interventional Radiology [address] [place] [address] Social History Tobacco Use Types Packs/Day Years [...] on filedocumented in this encounter Care Teams Tier Lift Operator Relationship Specialty Start Date End Date Marco Antonio Bolaños MD PCP - General Endocrinology 01/24/18 documented as of this encounter Additional Source Comments The information contained in this document represents components of the legal health record. It is not the complete legal health record.[facility]
--- OUTSIDE RECORDS SUMMARY | 2025-01-05 15:05 | XMS_ITS | Clinical Summary ---
Author Organization [facility] Address [address] [place] [phone] Phone Care Team Providers Care Die Tester Name Role Phone Marco Antonio Bolaños MD Primary Care Provider Unavail able Allergies Active Allergy Reactions Criticality Noted Date Comments Tramadol 01/29/2018 dizziness Medications apixaban (ELIQUIS) 2.5 mg TAKE ONE TABLET BY MOUTH TWICE A DAY 9 Active insulin detemir U-100 (LEVEMIR FLEXTOUCH U-100 INSULN) 100 unit/mL (3 mL) InPn injection pen Inject 6 Units under the skin. Sliding scalae 9 Active insulin aspart U-100 (NOVOLOG FLEXPEN U-100 INSULIN) 100 unit/mL (3 mL) InPn injection pen Inject under the skin. 4 or 5 units depending on sugars 9 Active hydrALAZINE (APRESOLINE) 50 MG tablet TAKE ONE AND ONE-HALF TABLET BY MOUTH 2 TIMES A DAY 9 Active losartan (COZAAR) 100 MG tablet Take 100 mg by mouth. 9 Active pantoprazole (PROTONIX) 40 MG tablet Take 40 mg by mouth. 9 Active atorvastatin (LIPITOR) 10 MG tablet Take 10 mg by mouth daily. Active furosemide (LASIX) 20 MG tablet Take 20 mg by mouth daily. Active dilTIAZem (CARDIZEM CD) 300 MG 24 hr capsule Take 300 mg by mouth daily. Active metoprolol tartrate (LOPRESSOR) 100 MG tablet Take 100 mg by mouth 2 (two) times a day. Active digoxin (LANOXIN) 62.5 mcg (0.0625 mg) tablet Take by mouth every other day. Active pancrelipase, lipase-protease -amylase, (CREON) 24,000-76,000 -120,000 unit CpDR 24,000 units of lipase as directed. Active Active Problems Problem Noted Date Diagnosed Date Hypertension 02/06/2019 Social History Tobacco Use Types Packs/Day Years Used Date Smoking Tobacco: Former Cigarettes Q uit: 2000 Smokeless Tobacco: Never Tobacco Cessation:Counseling Given: Not Answered Comments:quit 20 yrs ago Alcohol Use Standard [...] on file Sexual Orientation Not on file Last Filed Vital Signs Vital Sign Reading Time Taken Comments Blood Pressure 142/80 12/12/2022 1:00 PM EDT Pulse 72 12/12/2022 1:00 PM EDT Temperature 36.1 C (97 F) 12/12/2022 1:00 PM EDT Respiratory Rate 17 12/12/2022 12:00 PM EDT Oxygen Saturation 96% 12/12/2022 1:00 PM EDT Inhaled Oxygen Concentration - - Weight 66.2 kg (146 lb) 12/11/2022 1:31 PM EDT Height 154.9 cm (5' 1 ) 12/11/2022 1:31 PM EDT Body Mass Index 27.59 12/11/2022 1:31 PM EDT Plan of Treatment Health Maintenance Due Date Last Done Comments CREATININE LEVEL 1938 POTASSIUM LEVEL 1938 DEPRESSION SCREENING 1950 OSTEOPOROSIS SCREENING INITIAL (ONE-TIME) 2003 RSV VACCINE (1 - 1-dose 75+ series) 2013 ZOSTER VACCINES (2 of 3) 03/20/2013 01/23/2013 PNEUMOCOCCAL VACCINES (50+ years) (2 of 2 - PCV) 01/23/2020 01/22/2019, 02/05/2002 INFLUENZA VACCINE (#1) 2024 2, 02/08/2021, 03/04/2020, Additional history exists COVID-19 VACCINE ( season) 2024 06/23/2020, 06/22/2020, 06/02/2020 Adult Td,Tdap Booster 02/02/2027 02/02/2017 , 12/06/2007, 11/11/1996 HEPATITIS A VACCINES Aged Out No long er eligible based on patient's age to complete this topic HIB VACCINES Aged Out No longer eligi ble based on patient's age to complete this topic MENINGOCOCCAL VACCINES (ACWY) Aged Out No longer eligible based on patient's age to complete this topic MENINGOCOCCAL VACCINES (B) Aged Out N o longer eligible based on patient's age to complete this topic Medical Devices Implanted Type Area Water Superintendent Device Identifier Shelf Expiration Date Model / Serial / Lot Icd ICD Heart Sensor Pulmonary Artery Delivery System Cardiomems - [id number] Implanted:Qty : 1 on 05/11/2020 by Travon Parham DO at [facility] Implantable Monitor Right: Arterial [employer] 01/05/2022 CM PATIENT SYSTEM / / Description:Right Pulmonary Artery Stent Stent Bilateral: Iliac Artery Stent Stent N/A: Heart Insurance MEDICARE PART A & B [employer] MEDEX SUPPLEMENT MEDICARE PART A & B [employer] MEDEX SUPPLEMENT MEDICARE PART A & B [employer] MEDEX SUPPLEMENT MEDICARE PART A & B [employer] MEDEX SUPPLEMENT MEDICARE PART A & B [employer] MEDEX SUPPLEMENT MEDICARE PART A & B [employer] MEDEX SUPPLEMENT MEDICARE PART A & B [employer] MEDEX SUPPLEMENT MEDICARE PART A & B [employer] MEDEX SUPPLEMENT MEDICARE PART A & B [employer] MEDEX SUPPLEMENT Advance Directives For more information, please contact: [phone] (9AM - 5PM Jessi/[facility], Sunday-Sunday) * Full Code (Latest Code Status on File) Date Activated Date Inactivated Comments 12/12/2022 6:27 AM Question Answer Comments Code Status Confirmed With: Patient Code Status Communicated To: Other (specify belo w) Code Discussion Comments: Per MD Parham * Full Code Date Activated Date Inactivated Comments 05/11/2020 7:15 AM 12/12/2022 6:27 AM Question Answer Comments Code Status Confirmed With: Other (specify below ) Code Discussion Comments: Transcribed from order Care Teams Die Tester Relationship Specialty Start Date End Date Marco Antonio Bolaños MD PCP - General Endocrinology 01/24/18 Additional Source Comments The information contained in this document represents components of the legal health record. It is not the complete legal health record.[facility]
--- OUTSIDE RECORDS SUMMARY | 2025-01-05 15:05 | XMS_ITS | Patient Health Record ---
Author Organization [facility] Address [address] [place] [address] Care Team Providers Care Model Set Artist Name Role Phone Keanu Chávze Primary Care Provider Marcello Culp Unavailable [phone] RANJEET JULIAN Unavailable [phone] Chica Beard Unavailable Allergies Allergen (clinical drug ingredient) Drug/Non Drug Allergy documented on EMR Reaction Allergy Type Onset Date Status tramadol TRAMADOL dizziness Drug Allergy Active Results Component Value Reference Range Notes Hemoglobin A1C (29933) Reviewed date:03/12/2024 08:22:33 AM Interpretation:9.7% Performing Lab: Notes/Report: 9.7% Hemoglobin A1c (%) 9.7% CBC (INCLUDES DIFF/PLT) (Q-6 399) Reviewed date:05/12/2024 05:41:48 PM Interpretation: Performing Lab:TP, [facility]-[id number], [id number] Clayton Bailey MD Notes/Report: FASTING: UNKNOWN WHITE BLOOD CELL COUNT 9.4 3.8-10.8 Thousand/ uL RED BLOOD CELL COUNT 4.62 3.80-5.10 Million/uL HEMOGLOBIN 15.0 11.7-15.5 g/dL HEMATOCRIT 46.5 35.0-45.0 % MCV 100.6 80.0-100.0 fL MCH 32.5 27.0-33.0 pg MCHC 32.3 32.0-36.0 g/dL not clinically significant; however, it should be condition. For adults, a slight decrease in the calculated MCHC interpreted with caution in correlation with other red cell parameters and the patient's clinical value (in the range of 30 to 32 g/dL) is most likely RDW 12.5 11.0-15.0 % PLATELET COUNT 222 140-400 Thousand/uL MPV 10.0 7.5-12.5 fL ABSOLUTE NEUTROPHILS 7417 4734-6770 cells/uL ABSOLUTE LYMPHOCYTES 7654 047-7563 cells/uL ABSOLUTE MONOCYTES 658 200-950 cells/uL ABSOLUTE EOSINOPHILS 56 15-500 cells/uL ABSOLUTE BASOPHILS 47 0-200 cells/uL NEUTROPHILS 78.9 LYMPHOCYTES 13.0 MONOCYTES 7.0 EOSINOPHILS 0.6 BASOPHILS 0.5 TSH W/REFLEX TO FT4 (Not yet reviewed by provider) Interpretation: Performing Lab:TP, [facility]-[id number], [id number] Clayton Bailey MD Notes/Report: 0 TSH W/REFLEX TO FT4 2.27 0.40-4.50 mIU/L COMPREHENSIVE METABOLIC PANE L (Q-81136) (Not yet reviewed by provider) Interpretation: Performing Lab:TP, [facility]-[id number] [id number] Clayton Bailey MD Notes/Report: 0 GLUCOSE 96 [...] reviewe d by provider) Interpretation: Performing Lab:TP, [facility][id number], [id number] Clayton Bailey MD Notes/Report: 0 VITAMIN B12 324 263-0420 pg/mL PTH, INTACT AND CALCIUM (Not yet reviewed by provider) Interpretation: Performing Lab:TP, [facility]-[id number], [id number] Clayton Bailey MD Notes/Report: FASTING: UNKNOWN PARATHYROID HORMONE, INTACT 88 16-77 pg/mL Interpretive Guide Intact PTH Calcium Primary Normal or High High Non-Parathyroid Tertiary High High ------- Hypercalcemia Low or Low Normal High Normal Parathyroid Normal Normal Hyperparathyroidism Hypoparathyroidism Low or Low Normal Low Secondary High Normal or Low CALCIUM 7.1 8.6-10.4 mg/dL CBC (INCLUDES DIFF/PLT) (Q-6 399) (Not yet reviewed by provider) Interpretation: Performing Lab:TP, [facility]-[id number], [id number] Clayton Bailey MD Notes/Report: 0 WHITE BLOOD [...] red cell parameters and the patient's clinical interpreted with caution in correlation with other For adults, a slight decrease in the calculated MCHC RDW 13.4 11.0-15.0 % PLATELET COUNT 246 140-400 Thousand/uL MPV 9.7 7.5-12.5 fL ABSOLUTE NEUTROPHILS 6613 8349-8041 cells/uL ABSOLUTE LYMPHOCYTES 8369 595-6060 cells/uL ABSOLUTE MONOCYTES 468 200-950 cells/uL ABSOLUTE EOSINOPHILS 111 15-500 cells/uL ABSOLUTE BASOPHILS 60 0-200 cells/uL NEUTROPHILS 77.8 LYMPHOCYTES 14.7 MONOCYTES 5.5 EOSINOPHILS 1.3 BASOPHILS 0.7 Albumin, Random Urine with C reatinine (Not yet reviewed by provider) Interpretation: Performing Lab:[facility]-[id number], [id number] Clayton Bailey MD Notes/Report: 0 CREATININE, RANDOM URINE 44 20-275 mg/dL ALBUMIN, URINE 0.2 See Note: mg/dL Reference Range: Not established Reference Range ALBUMIN/CREATININE RATIO, RANDOM URINE 5 <30 mg/g creat specimens collected within a 3-6 month period be The ADA recommends that at least two of three Moderately increased 30-299 abnormal before considering a patient to be Severely increased > OR = 300 excretion as follows: Normal to Mildly increased <30 The ADA defines abnormalities in albumin within a diagnostic category. Albuminuria Category Result (mg/g creatinine) LIPID PANEL (Q-7600) (Not ye t reviewed by provider) Interpretation: Performing Lab:[facility]-[id number] [address], [id number] Clayton Bailey MD Notes/Report: 0 CHOLESTEROL, TOTAL 169 <200 mg/dL HDL CHOLESTEROL 70 > OR = 50 mg/dL TRIGLYCERIDES 112 <150 mg/dL LDL-CHOLESTEROL 79 Desirable range <100 mg/dL for primary prevention; estimation of LDL-C. (http://education.ihiji.com/faq/AKT874) Reference range: <100 calculation, which is a validated novel method providing better accuracy than the Friedewald equation in the Gee FRANKLIN et al. TAYLOR. 2013;310(19): 8347-9488 LDL-C is now calculated using the Gee-Collins <70 mg/dL for patients with CHD or diabetic patients with > or = 2 CHD risk factors. CHOL/HDLC RATIO 2.4 <5.0 (calc) NON HDL CHOLESTEROL 99 <130 mg/dL (calc) option. For patients with diabetes plus 1 major ASCVD risk (LDL-C of <70 mg/dL) is considered a therapeutic factor, treating to a non-HDL-C goal of <100 mg/dL Hemoglobin A1c (L-042529, Q- 496) (Not yet reviewed by provider) Interpretation: Performing Lab:TP, [facility]-[id number], [id number] Clayton Bailey MD Notes/Report: 0 PTH, INTACT AND CALCIUM (Not yet reviewed by provider) Interpretation: Performing Lab:TP, [facility]-[id number], [id number] Clayton Bailey MD Notes/Report: 0 PARATHYROID HORMONE, INTACT 183 16-77 pg/mL Hypoparathyroidism Low or Low Normal Low Non-Parathyroid Interpretive Guide Intact PTH Calcium Secondary High Normal or Low ------- Hyperparathyroidism Hypercalcemia Low or Low Normal High Primary Normal or High High Normal Parathyroid Normal Normal Tertiary High High CALCIUM 9.1 8.6-10.4 mg/dL SPECIMEN INTEGRITY COMPROMIS ED (Not yet reviewed by provider) Interpretation: Performing Lab:TP, [facility]-[id number], [id number] Clayton Bailey MD Notes/Report: 0 SPECIMEN INTEGRITY COMPROMISED decrease in glucose may occur due to prolonged contact Whole blood, unspun or partially spun gel barrier tube was received more than 6 hours since collection. A with red cells. false elevation of K, Phos and LD as well as a false Reason For Referral Reason Medicare Unaligned pt needs 4 wheeled seated walker due to unsteady gait with falls PT H 60 / W 127 Diagnosis 1 Unsteadiness on feet (R26.81) Diagnosis 2 Unspecified fall, in itial encounter (W19.XXXA) Referral Organization [facility] Referring Provider First Name Keanu Referring Provider [...] tablet Orally Once a day Active Creon [id number] UNIT Take 1 capsule Orally Four times [...] No Points 0 Interpretation Negative Section Notes: parts room assistant [place] parts room assistant [place] , parts room assistant [place] , parts room assistant [place] parts room assistant [place] parts room assistant [place] parts room assistant [place] parts room assistant [place] parts room assistant [place] parts room assistant [place] parts room assistant [place] parts room assistant [place] parts room assistant [place] , parts room assistant [place] parts room assistant [place] parts room assistant [place] parts room assistant [place] parts room assistant [place] parts room assistant [place] parts room assistant [place] , parts room assistant [place] Problems Problem Type SNOMED Code ICD Code Onset Dates Problem Status W/U Status Risk Notes Problem Non-thrombocytopen ic purpura (028333128) 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) Active confirmed unchanged on exam Problem Hypothyroidism (13964394) Other specified hypothyroidism (E03.8) Active confirmed TSH back to normal on recent labs; she denies any potentially related symptoms Problem Renal disorder associated with type I diabetes mellitus (525707815) 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) Active confirmed Problem Diabetic autonomic neuropathy due to type 1 diabetes mellitus (701063895) Type 1 diabetes mellitus with diabetic neuropathy, unspecified (E10.40) Active confirmed Problem Polyneuropathy due to diabetes mellitus type I (024373020) Type 1 diabetes mellitus with diabetic polyneuropathy (E10.42) Active confirmed Problem Hyperlipidemia (86611651) Hyperlipidemia, unspecified (E78.5) Active confirmed complication of DM; off statin, though, due to liver toxicity; recent labs somehow great Problem Polyneuropathy (90670836) Polyneuropathy in diseases classified elsewhere (G63) Active confirmed paresthesias per PE; now on gabapentin from provider in [place]; cause is multifactorial but indubitably contributed to by hypothyroidism Problem Hypertensive heart AND chronic kidney disease with congestive heart failure (64226627178642) Hypertensive heart and chronic kidney disease with heart failure and stage 1 through stage 4 chronic kidney disease, or unspecified chronic kidney disease (I13.0) Active confirmed on multiple meds but off ARB/SAÚL and only uses hydralazine when needed; managed by cardiology; they are not monitoring at home Problem Atherosclerotic heart disease of [place] coronary artery without angina pectoris (561733066847534) Atherosclerotic heart disease of [place] coronary artery without angina pectoris (I25.10) Active confirmed s/p cardiac stent; off statin due to liver toxicity; denies recent chest pains Problem Toxic liver disease (986598036) Toxic liver disease, 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) Active confirmed due to statins; taken off Rxs by cardiology; recent LFTs better Problem Plantar fascial fibromatosis (75543105) Plantar fascial fibromatosis (M72.2) Active confirmed Problem Abnormal gait (96202564) Unsteadiness on feet (R26.81) Active confirmed see hpi Problem Frailty (finding) (391297390) Age-related physical debility (R54) Active confirmed Problem Adverse effect of antihyperlipide tiffanie and antiarterioscle rotic drugs, subsequent encounter (T46.6X5D) Active confirmed manifested as liver toxicity Problem Long-term current use of anticoagulant (349435114) joint terminal attack controller (current) use of anticoagulants (Z79.01) Active confirmed on eliquis Problem Long-term current use of insulin (385343539) joint terminal attack controller (current) use of insulin (Z79.4) Active confirmed Problem History of pancreatectomy (situation) (333822779481918) 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) Active confirmed Problem Cardiac pacemaker in situ (217201517) Pacemaker (Z95.0) Active confirmed s/p ablation for afib; monitored/manag ed by cardiology Problem Hypercoagulable state (01060355) Secondary hypercoagulable state (D68.69) Active confirmed due to a fib; on eliquis; managed by cardiology Problem Allergic conjunctivitis of both eyes (547800960915351) Allergic conjunctivitis of both eyes (H10.13) Active confirmed Problem Exocrine pancreatic insufficiency (30495067) Exocrine pancreatic insufficiency (K86.81) Active confirmed Problem Disorder of pancreas (2770854) Other specified diseases of pancreas (K86.89) Active confirmed 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 due to looking abnormal when having gallbladder removed; insufficiency and DM since Problem Sleep apnea (20154499) Sleep apnea, unspecified type (G47.30) Active confirmed Problem Chronic diastolic heart failure (934618254) Chronic diastolic heart failure (I50.32) Active confirmed per cardiology note 05/11/20; on BB only as apparently no longer on digoxin; also out of diuretics as per HPI; also still reportedly has device that measures fluid retention daily that gets reported to cardiology; Problem Pulmonary hypertension (14703961) Pulmonary hypertension (I27.20) Active confirmed per ECHO results from cardio in [place]; managed by them; subjectively stable Problem Nephropathy due to secondary diabetes mellitus (812288105671086) DIABETES MELLITUS DUE TO UNDERLYING CONDITION WITH DIABETIC CHRONIC KIDNEY DISEASE (E08.22) Active confirmed 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; managed by endocrine [place] only now as she didn't like [place] provider she saw last year; supposed to be on LA insulin daily and sliding scale rapid acting insulin; recent FBG horrible at 302; A1C up to 10.7; she apparently was without both for a week Problem Diabetic peripheral angiopathy (224241352) DIABETES MELLITUS DUE TO UNDERLYING CONDITION WITH DIABETIC PERIPHERAL ANGIOPATHY WITHOUT GANGRENE (E08.51) Active confirmed 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; managed [place] endocrine [place] now as [place]'t like [place] [...] not an antiplatelet Problem Secondary diabetes mellitus (5971853) DIABETES MELLITUS DUE TO UNDERLYING CONDITION WITH HYPERGLYCEMIA (E08.65) Active confirmed 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; managed by endocrine [place] now as she didn't like [place] provider [place] saw last year; supposed to be on LA insulin daily and sliding scale rapid acting insulin; recent FBG horrible at 302; A1C up to 10.7; she apparently was without both for a week Problem Complication due to secondary diabetes mellitus (614371834365270) DIABETES MELLITUS DUE TO UNDERLYING CONDITION WITH OTHER SPECIFIED COMPLICATION (E08.69) Active confirmed 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; managed by endocrine [place] now as she [place]'t like [place] provider [place] saw last year; supposed to be on LA insulin daily and sliding scale rapid acting insulin; HbA1c not below 9 for months; ; has hyperlipidemia as complication Problem 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 by functional hypoperfusion of kidneys caused by CHF; currently fluid balanced on daily diuretics Problem Peripheral vascular disease (632889253) PERIPHERAL VASCULAR DISEASE, UNSPECIFIED (I73.9) Active confirmed Problem Chronic atrial fibrillation (disorder) (347874109) Chronic atrial fibrillation, unspecified (I48.20) Active confirmed managed by cardio; s/p ablation w/ pacemaker implant; rate controlled on BB and diltiazem anticoagulated on eliquis; Problem Immunodeficiency disorder (disorder) (641577334) 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) Active confirmed due to terribly uncontrolled DM2; recent pneumonia per HPI Problem Chronic kidney disease stage 3A (disorder) (433892975) Chronic kidney disease, stage 3a (N18.31) Active confirmed Problem Chronic kidney disease stage 3B (disorder) (327951259) Chronic kidney disease, stage 3b (N18.32) Active confirmed due to DM2; remains off ARB and SAÚL; recent 47; ACR up to 70; \ Problem Gastroesophageal reflux disease (185574673) Gastroesophagea l reflux disease, unspecified whether esophagitis [...] N/A Encounters Encounter Location Date Provider Diagnosis [address] [address] 03/11/2024 Keanu Chávez [address] [address] 03/17/2024 Marcello Culp [facility] [address] [place] [address] 03/24/2024 Keanu Chávez [address] [address] 03/24/2024 Keanu Chávez [facility] [address] [place] [address] 06/11/2024 Keanu Chávez Chronic kidney disea se, stage 3b N18.32 [facility] [address] [place] [address] 07/02/2024 Keanu Chávez [facility] [address] [place] [address] 07/02/2024 Keanu Chávez [address] [address] 07/21/2024 Keanu Chávez [facility] [address] [place] [address] 12/03/2024 Keanu Chávez Hypertensive heart a nd chronic kidney disease with heart failure and stage 1 through stage 4 chronic kidney disease, or unspecified chronic kidney disease I13.[address] [address] 12/23/2024 Marcello Culp [facility] [address] [place] [address] 03/24/2024 Chica Beard Secondary hypercoagulable state D68.69 [...] and Chronic kidney disease, stage 3a N18.[address] [place] [address] 05/07/2024 Keanu Chávez Encounter for screen ing, unspecified Z13.9 ; Hemorrhage of anus and rectum K62.5 and Immunodeficiency due to conditions classified elsewhere D84.[address] [address] 05/19/2024 Keanu Chávez Unspecified fall, initial encounter W19.XXXA ; Unsteadiness on feet R26.81 ; Myalgia, unspecified site M79.10 and Encounter for screening, unspecified Z13.[address] [place] [address] 07/09/2024 RANEJET JULIAN Hypertensive heart a nd chronic kidney disease [...] Chronic kidney disease, stage 3a N18.31 ; PIE CUTTER (CURRENT) USE OF INSULIN Z79.4 ; Hyperlipidemia, unspecified E78.5 ; Type 1 diabetes mellitus with diabetic chronic kidney disease E10.22 ; Atherosclerotic heart disease of [place] coronary artery without angina pectoris I25.10 ; Exocrine pancreatic insufficiency K86.81 ; Encounter for screening, unspecified Z13.9 and Body mass index [BMI] 25.0-25.9, adult Z68.25 [facility] [address] [place] [address] 07/14/2024 Marcello Culp DIABETES MELLITUS DU E TO UNDERLYING CONDITION WITH DIABETIC CHRONIC KIDNEY DISEASE E08.22 ; Chronic kidney disease, stage 3b N18.32 ; Type 1 diabetes mellitus with diabetic polyneuropathy E10.42 ; Presence of other specified devices Z97.8 ; joint terminal attack controller (current) use of insulin Z79.4 ; Hyperlipidemia, unspecified E78.5 ; Exocrine pancreatic insufficiency K86.81 and Immunodeficiency due to conditions classified elsewhere D84.81 [facility] [address] [place] [address] 03/11/2024 Marcello Culp Type 1 diabetes elicia itus with diabetic neuropathy, unspecified E10.40 ; DIABETES MELLITUS DUE TO UNDERLYING CONDITION WITH DIABETIC CHRONIC KIDNEY DISEASE E08.22 ; USP (CURRENT) USE OF INSULIN Z79.4 ; Presence of other specified devices Z97.8 ; Hyperlipidemia, unspecified E78.5 ; Immunodeficiency due to conditions classified elsewhere D84.81 ; Age-related physical debility R54 and Exocrine pancreatic insufficiency K86.[address] [place] [address] 07/03/2024 Keanu Chávez Type 1 diabetes elicia [...] 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; [place]'t [place] [...] due to afib, on eliquis, managed by continuous miner 05/07/2024 Hemorrhage of anus and rectum (ICD-10 - K62.5) see hpi see hpi 05/07/2024 Encounter for screening, unspecified (ICD-10 - Z13.9) 05/19/2024 Unsteadiness on feet (ICD-10 - R26.81) see hpi 05/19/2024 Unspecified fall, initial encounter (ICD-10 - W19.XXXA) see hpi 07/03/2024 Type 1 diabetes mellitus with diabetic neuropathy, unspecified (ICD-10 - E10.40) 07/09/2024 Type 1 diabetes mellitus with diabetic [...] 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; managed [place] endocrine [place] now [place]'t like [place] [...] unspecified chronic kidney disease (ICD-10 - I13.0) 06/11/2024 Chronic kidney disease, stage 3b (ICD-10 - N18.32) 05/19/2024 Myalgia, unspecified site (ICD-10 - M79.10) [...] eliquis; on diltiazem, and eliquis, managed by continuous miner, stable 03/11/2024 PIE CUTTER (CURRENT) USE OF INSULIN (ICD-10 - Z79.4) supposed to be on daily LA insulin and sliding scale rapid acting insulin She has the basal bolus regimen with mealtime insulin correction which I think still reasonable, she would not benefit from any other intervention at this time except continuing insulin 03/11/2024 Presence of other specified devices (ICD-10 - Z97.8) The forrest 2 has been helpful especially avoiding hypoglycemia and she does her correction we will see what her glycohemoglobin does over time but again current regimen is reasonable 03/24/2024 DIABETES MELLITUS DUE TO UNDERLYING CONDITION WITH OTHER SPECIFIED COMPLICATION (ICD-10 - E08.69) 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; managed by endocrine [place] now as [place]'t like [place] provider [place] saw last year; supposed to be on LA insulin daily and sliding scale rapid acting insulin; HbA1c not below 9 for months; ; has hyperlipidemia as complication uncontrolled, on insulin, should do better with diet, sees endo 05/19/2024 Encounter for screening, unspecified (ICD-10 - Z13.9) 07/03/2024 Hyperlipidemia, unspecified (ICD-10 - E78.5) 07/09/2024 Secondary hypercoagulable state (ICD-10 - D68.69) due to a fib; on eliquis; managed by cardiology due to afib, on eliquis, managed by continuous miner. monitor 07/14/2024 Presence of other specified devices (ICD-10 - Z97.8) The reader has been helpful especially avoiding hypoglycemia, I asked her to bring with it with her she may need to upgrade to the 3+ forrest depending on availability but this would not change anything except a new reader 07/14/2024 joint terminal attack controller (current) use of insulin (ICD-10 - Z79.4) Basically were using the basal insulin with correction I think this is reasonable given her situation advanced age preference continue to monitor 07/09/2024 Chronic atrial fibrillation, unspecified (ICD-10 - I48.20) managed by cardio; s/p ablation w/ pacemaker implant; rate controlled on BB and diltiazem anticoagulated on eliquis; on diltiazem, and eliquis, managed by continuous miner, stable 07/03/2024 Body mass index [BMI] 23.0-23.9, adult (ICD-10 - Z68.23) 03/11/2024 Hyperlipidemia, unspecified (ICD-10 - E78.5) complication of DM; off statin, though, due to liver toxicity; recent labs somehow great She apparently developed liver abnormalities, simply follow her lab along 03/24/2024 Chronic diastolic heart failure (ICD-10 - I50.32) per cardiology note 05/11/20; on BB only as apparently no longer on digoxin; also out of diuretics as per HPI; also still reportedly has device that measures fluid retention daily that gets reported to cardiology; euvolemic on furosemide, low salt diet recommended 03/11/2024 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) due to terribly uncontrolled DM2; recent pneumonia per HPI Though the glucoses could make her more prone to infection, poor wound healing were not trying to lower her sugars much given her advanced age and frailty 07/03/2024 Chronic kidney disease, stage 3a (ICD-10 - N18.31) 03/24/2024 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 CHF; currently fluid balanced on daily diuretics due to CHF, on daily diuretics 07/14/2024 Hyperlipidemia, unspecified (ICD-10 - E78.5) complication of DM; off statin, though, due to liver toxicity; recent labs somehow great Reasonable results 07/09/2024 DIABETES MELLITUS DUE TO UNDERLYING CONDITION WITH OTHER SPECIFIED COMPLICATION (ICD-10 - E08.69) 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; managed by endocrine [place] now as [place] provider [place] saw last [place]; supposed to be on LA insulin daily and sliding scale rapid acting insulin; HbA1c not below 9 for months; ; has hyperlipidemia as complication uncontrolled, on insulin, should do better with diet, sees endo 07/14/2024 Exocrine pancreatic insufficiency (ICD-10 - K86.81) [...] in diseases classified elsewhere (ICD-10 - G63) 03/11/2024 Age-related physical debility (ICD-10 - R54) Generally she is stable with help from her family, advised fall precautions, she generally has good nutrition but with the ice cream, 03/24/2024 Pacemaker (ICD-10 - Z95.0) s/p ablation for afib; monitored/manage d by cardiology monitored by continuous miner 03/11/2024 Exocrine pancreatic insufficiency (ICD-10 - K86.81) She is doing well with Creon does not have a lot of GI symptoms continue replacement 03/24/2024 PERIPHERAL VASCULAR DISEASE, UNSPECIFIED (ICD-10 - I73.9) by exam, she is on statin, mobility is impaired, she should control her DM better 07/09/2024 SECONDARY HYPERALDOSTERONISM (ICD-10 - E26.1) due [...] afib; monitored/manage d by cardiology monitored by continuous miner 03/24/2024 Hypertensive heart and chronic kidney disease [...] monitor bp, avoid nephrotoxins and monitor PTH 07/09/2024 PERIPHERAL VASCULAR DISEASE, UNSPECIFIED (ICD-10 - I73.9) by exam, she is on statin, mobility is impaired, she should control her DM better. monitor 03/24/2024 Chronic kidney disease, stage 3a (ICD-10 - N18.31) gfr better at 47, continue taking lisinopril 2.5, good bp control, should do much better with her diabetes 07/09/2024 Chronic kidney disease, stage 3a (ICD-10 - N18.31) chronic. recent gfr better (46), continue SAÚL, good bp control, should do much better with her diabetes. monitor 07/09/2024 USP (CURRENT) USE OF INSULIN (ICD-10 - Z79.4) [...] hydration. monitor 07/09/2024 Atherosclerotic heart disease of [place] coronary artery without angina pectoris (ICD-10 - [...] Test Test Name Order Date Hemoglobin A1c (L-246348, Q-496) 024 Hemoglobin A1c (L-539830, Q-496) 025 Hemoglobin A1c (L-487117, Q-496) 025 Albumin, Random Urine with Creatinine PTH, INTACT AND CALCIUM 07/03/2024 PTH, INTACT AND CALCIUM 07/03/2024 LIPID PANEL (Q-7600) 07/03/2024 LIPID PANEL (Q-7600) 03/11/2024 COMPREHENSIVE METABOLIC PANEL (Q-75301) 07/14/2024 COMPREHENSIVE METABOLIC PANEL (Q-49577) 07/03/2024 COMPREHENSIVE METABOLIC PANEL (Q-41655) 03/11/2024 MAGNESIUM 07/14/2024 PHOSPHATE ( PHOSPHORUS) 07/14/2024 CBC (H/H, RBC, INDICES, WBC, PLT) 2023 CBC (INCLUDES DIFF/PLT) (Q-6399) 025 VITAMIN B12 07/03/2024 TSH W/REFLEX TO FT4 07/03/2024 TSH W/REFLEX TO FT4 03/11/[address]ED [address] ABD&PELVIS W/CONT 05/21/2019 Next Appt Details Provider Name:Marcello Culp, 03/02/2025 11:00:00 AM, [address] [place] [address], [place] [address], [place], [id number], Insurance Providers Payer Name Payer Address Payer Phone Subscriber Number Group Number Insured Name Patient Relationship to Insured Coverage Start Date Coverage End Date Medicare Unaligned [address] JAKE Costello [phone] [id number] Dana Griffiths Self - patient is the insured [address] [place] [address] [address] [place] [address] [id number] Dana Griffiths Self - patient is the insured Medical (General) History Medical History History ICD Code whipple 1999 AFib PVD CAD DM2 GERD CHF PAD Neuropathy Surgical History Surgery Date(Month/Year) femeral bypass 2022 breast ( L) biopsy-benign whipple pacemaker coronary stents iliac stents bilateral Hospitalization History Reason Date(Month/Year) [facility] in [place] pneumonia 04/21 Multiple seziure like episode 09/2023 [facility], Mini Stroke 08/11/2023 [facility] in [place] influenza 04/21
== END 2025-01-05 13:28 | disposition home or self-care (01) ==
LOC: HO.ENCR 12:56
PROVIDERS: PCP Internal Medicine; Visit Provider Student in an Organized Health Care Education/Training Program
DX: E11.65 Type 2 diabetes mellitus with hyperglycemia (principal); Z79.4 Long term (current) use of insulin; E11.22 Type 2 diabetes mellitus with diabetic chronic kidney disease; N18.30 Chronic kidney disease, stage 3 unspecified; S36.209S Unspecified injury of unspecified part of pancreas, sequela; E78.5 Hyperlipidemia, unspecified; Z13.9 Encounter for screening, unspecified; Z86.39 Personal history of other endocrine, nutritional and metabolic disease
CPT/HCPCS: 95251; 99214

== ENCOUNTER → 2025-01-05 12:55 | Outpatient (BNVA) | payer MEDICARE, SELFPAY | PROVIDERS: PCP Internal Medicine; Visit Provider Student in an Organized Health Care Education/Training Program | DX: E11.22 Type 2 diabetes mellitus with diabetic chronic kidney disease (principal); N18.30 Chronic kidney disease, stage 3 unspecified; Z79.4 Long term (current) use of insulin; Z86.39 Personal history of other endocrine, nutritional and metabolic disease; E13.9 Other specified diabetes mellitus without complications; S36.209S Unspecified injury of unspecified part of pancreas, sequela | CPT/HCPCS: 82947; 83036; 99212 ==

== ENCOUNTER 2025-01-08 10:40 | Outpatient (AMB) | payer MEDICARE, SELFPAY ==
--- NOTE | 2025-01-08 11:27 | A.OFFVIS_ITS ---
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 Social History Household Members: Other Household Members Other:: Lives with [facility] Alcohol intake: former Patient Tobacco Use Status: Former Tobacco user Assessment & Plan Assessment & Plan (1) Diabetes type 2, uncontrolled: Code(s): E11.65 - Type 2 diabetes mellitus with hyperglycemia Qualifiers: Glycemic state: with hyperglycemia Qualified Code(s): E11.65 - Type 2 diabetes mellitus with hyperglycemia Plan: Personal Continuous Glucose Monitor: Patients CGM information reviewed, Pt uses Serafin 2-14 day with reader Patient is still using Serafin to 14 day sensors, patient does not have alerts and alarms available at this time. Patient came to visit to upgrade to Serafin 3+ sensors, however did not receive Serafin 3+ sensor and reader We called patient's DME [facility], they agreed to cover you sensors in reader. Patient will not receive new supplies until February 2025 when she is currently used up Serafin 2 sensors Patient has missing data on sensor download, explained to patient the importance of scanning sensor at a minimum every 8 hours in order to capture all data. Patient also reports she was recently hospitalized for fall, stated she has been feeling dizzy. We did discuss symptoms of low blood sugar. Instructed patient when she feels symptoms of low blood sugar to be sure to scan sensor. A majority of today's visit was spent talking to DME company and arranging for patient to receive upgraded sensor supplies Patient able to insert sensor independently at home without issue.? Reviewed following information with patient at today's visit Signs and symptoms of low blood sugar (happen quickly) Each person's reaction to low blood sugar is different. Learn your own signs and symptoms of when your blood sugar is low. Taking time to write these symptoms down may help you learn your own symptoms of when your blood sugar is low. From milder, more common indicators to most severe, signs and symptoms of low blood sugar include: Feeling shaky Being nervous or anxious Sweating, chills and clamminess Irritability or impatience Confusion Fast heartbeat Feeling lightheaded or dizzy Hunger Nausea Color draining from the skin (pallor) Feeling Sleepy Feeling weak or having no energy Blurred/impaired vision Tingling or numbness in the lips, tongue, or cheeks Headaches Coordination problems, clumsiness Hypoglycemia or blood glucose under 90 use the rule of 15's: If you have your blood glucose meter test your blood glucose, if you do not have your meter still follow below instruction: Keep quick-sugar foods with you at all times.? Take 15 grams of fast acting carbohydrates. Examples are 4 ounces of fruit juice or regular soda pop, 8 ounces fat-free milk, 1 tablespoon of table sugar, honey or corn syrup, jam, one miniature box of raisins, 7-8 gumdrops or Life Savers candy, 4 glucose tablets, and glucose gel.? Retest blood glucose in 15 minutes, if blood glucose is still under 90, repeat rule of 15's. If blood glucose is under 50, take 30 grams of fast acting carbohydrates If you are having hypoglycemia, or insulin reaction, more that a few times a week, call MD or educator senior clinical F/U BG check [facility] called to verify that they will cover new Serafin 3 reader and Serafin 3+ sensors Coding Level of Care Code Est Pt Level 1 (43324) Diagnoses Uncontrolled type 2 diabetes mellitus with hyperglycemia E11.65 Glycemic state: with hyperglycemia
== END 2025-01-08 11:31 | disposition home or self-care (01) ==
LOC: HO.ENCR 10:41
PROVIDERS: PCP Internal Medicine; Visit Provider Registered Nurse Diabetes Educator
DX: E11.65 Type 2 diabetes mellitus with hyperglycemia (principal)

== ENCOUNTER → 2025-01-08 10:40 | Outpatient (BNVA) | payer MEDICARE, SELFPAY | PROVIDERS: PCP Internal Medicine; Visit Provider Registered Nurse Diabetes Educator | DX: E11.65 Type 2 diabetes mellitus with hyperglycemia (principal); Z79.4 Long term (current) use of insulin; Z46.89 Encounter for fitting and adjustment of other specified devices | CPT/HCPCS: 99211 ==

== ENCOUNTER 2025-02-05 13:39 | Outpatient (AMB) | payer MEDICARE, SELFPAY ==
[2025-02-05 13:56] VITALS: BP 116/52; PULSE 56; O2SAT 98; BMI 26.8
--- NOTE | 2025-02-05 13:56 | MHC.OFFVIS ---
Vital Signs 02/05/25 13:56 Height 5 ft 1 in Weight 141 lb 15.643 oz BMI 26.8 BP 116/52 L Blood Pressure Location Lt brachial Position Sitting Pulse 56 Pulse Source Pulse Oximeter Pulse Oximetry (%) 98 Oxygen Delivery Method Room Air Intake Visit Reasons: T2DM Intake Note: Patient present today for Type 2 Diabetes Mellitus Last Diabetic eye exam: Last exam was on 07/2023 Last Podiatry Visit: Doesn't have one Random Glucose: 368 mg/dl HgA1C: 11.0% 01/05/25 Weight Reducing Technician Required: No Accompanied by: Son Allergies tramadol Allergy (Unknown, Verified 02/05/25 14:03) Unknown Medication List - Last Reconciled 02/05/25 by Chiara Grace MD alendronate 70 mg PO QWEEK apixaban 2.5 mg PO BID aspirin 81 mg PO DAILY blood sugar diagnostic ([email or web address] Verio test strips) Use as directed to check blood glucose four daily. blood-glucose meter (Driverdo Verio Flex Meter) Use as directed blood-glucose sensor (TalkdeskStyle Serafin 3 Plus Sensor device) Apply 1 new sensor every 15 days as directed to monitor blood glucose continuously. blood-glucose,environmental engineer,cont (FreeStyle Serafin 3 [place]) Use daily to monitor blood glucose levels continuously. clobetasol 0.05% 1 appl topical BID digoxin 62.5 mcg PO DAILY diltiazem HCl CD 300 mg PO DAILY famotidine 20 mg PO DAILY furosemide 20 mg PO DAILY gabapentin 100 mg PO TID glucagon 3 mg/actuation (Baqsimi) 3 mg intranasal ONCE hydralazine 75 mg PO BID insulin aspart U-100 8 units (0.08 mL) subcut TID insulin degludec (Tresiba FlexTouch U-200 insulin) 16 units (0.08 mL) subcut BEDTIME lancets ([email or web address] Delica Plus Lancet) Use as directed to check blood glucose four times daily. levofloxacin mg PO abqcns-mvedqeph-jktdkxo 24,000-76,000 -120,000 unit (Creon) 1 cap PO BID lisinopril 2.5 mg PO DAILY metoprolol tartrate 150 mg PO pantoprazole 40 mg PO DAILY pen needle, diabetic (BD Kerry 2nd Gen Pen Needle) Use to administer insulin four times daily. 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 Last seen 01/05/2025 Per previous notes she has pancreatic diabetes with multiple complications and no beta cell reserve likely due to pancreatic surgery. She spends 6 months in [place]. She returned to [place] in August 2024. 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 Hemoglobin A1c 11.1% 01/05/25 POC 10.1% September 2024 with target <8.5%. Her turbine engineer in [place] is: [facility]. [phone] Dr. Culp Blood glucose today 368 mg/dL. Patient might have forgotten to take her lunchtime insulin she is not sure. When she is here from August to January, she lives with her granddaughter who is at school during the day. She does not have any supervision during the day and sometimes she might forgetting to take her insulin. JDP Therapeuticse 2 downloaded from January 23 to 02/05/2025 Time CGM active 54% G GA not applicable Glucose variability 39.2% Average glucose 203 mg/dL Within target range 34% High 33% Very high 29% Low 2% Very low 2% Interpretation: Her blood sugars are dropping overnight and then she will have hyperglycemia with a what seems to align with her postprandial hyperglycemic spike followed by hypoglycemia. In the past she had hypoglycemia with a glucose level of 40 and had no symptoms with it. Has nasal glucagon prescribed. Micro and macrovascular complications: Last eye visit: Done in [place] 09/21. No retinopathy per patient. Does have nephropathy, last EGFR reported as 56 from 2022??/ no recent microalbumin in the chart, Does have neuropathy (plantar surfaces of feet). Podiatry: Does not have entry level automotive technician Does have peripheral vascular disease. No history of stroke or heart attack. Diabetes medications: Current regimen: Insulin aspart 8 units before breakfast and lunch and dinner ( but sometimes skips) Tresiba 16 units AM She reports eating 3 meals per day. She eats ice cream regularly. Physical exam: Constitutional: Alert, in no distress. Eyes: Pupils are equal, round and reactive to light. Extraocular muscles intact. Neck: Supple, Full range of motion. No lymphadenopathy. Respiratory: Clear to auscultation. Cardiovascular: S1 S2 regular. No murmurs. Right foot: Done August 2024 Warm and well perfused. No clubbing, cyanosis or edema. Intact DP pulse. Decreased vibratory sensation. Intact sensation to monofilament. No open wounds. Left foot: Done August 2024 Warm and well perfused. No clubbing, cyanosis or edema. Intact DP pulse. Decreased vibratory sensation. Intact sensation to monofilament. No open wounds. Laboratory Tests 02/17/21 02/17/21 03/02/22 08:05 Unknown 10:44 Hgb Hct Plt Count Creatinine Estimated GFR Glucose (Clinic) Hgb A1c (Clinic) 8.2 H C-Peptide AST ALT Triglycerides 90 Cholesterol 155 LDL Cholesterol, Calc 71 HDL Cholesterol 66 Urine Creatinine 127.92 Urine Microalbumin 60.0 Microalb/Creat Ratio 46.9 01/10/23 01/22/23 11/23/23 05:00 04:30 11:10 Hgb 13.8 Hct 43.2 Plt Count 241 D Creatinine 0.95 Estimated GFR 56 Glucose (Clinic) Hgb A1c (Clinic) 9.8 H C-Peptide AST 72 H ALT 49 H Triglycerides Cholesterol LDL Cholesterol, Calc HDL Cholesterol Urine Creatinine Urine Microalbumin Microalb/Creat Ratio 02/19/24 10/07/24 11/11/24 09:31 10:01 11:20 Hgb Hct Plt Count Creatinine Estimated GFR Glucose (Clinic) 184 H Hgb A1c (Clinic) 9.9 H 10.1 H C-Peptide AST ALT Triglycerides Cholesterol LDL Cholesterol, Calc HDL Cholesterol Urine Creatinine Urine Microalbumin Microalb/Creat Ratio 11/11/24 12:10 Hgb Hct Plt Count Creatinine Estimated GFR Glucose (Clinic) Hgb A1c (Clinic) C-Peptide 0.48 L AST ALT Triglycerides Cholesterol LDL Cholesterol, Calc HDL Cholesterol Urine Creatinine Urine Microalbumin Microalb/Creat Ratio [facility] Medical History (Updated 10/07/24 @ 11:18 by JAKE Vaca) History of hypoglycemia Neuropathy of both feet Osteoporosis 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 Social History Household Members: Other Household Members Other:: Lives with [facility] Alcohol intake: former Patient Tobacco Use Status: Former Tobacco user Physical Exam Vital Signs: Last Vital Signs Pulse 56 02/05/25 13:56 BP 116/52 L 02/05/25 13:56 Pulse Ox 98 02/05/25 13:56 Oxygen Delivery Method Room Air 02/05/25 13:56 BMI result Body Mass Index 26.8 Office Procedures Glucose Monitoring Details Details: See [facility] [address] - Glucose monitoring, continuous-physician I&R Procedure code (CPT) selection complete Assessment & Plan Assessment & Plan (1) 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: Code(s): E13.9 - Other specified diabetes mellitus without complications; S36.209S - Unspecified injury of unspecified part of pancreas, sequela Category: Medical Plan: See below (2) CKD stage 3 due to type 2 diabetes mellitus: Code(s): E11.22 - Type 2 diabetes mellitus with diabetic chronic kidney disease; N18.30 - Chronic kidney disease, stage 3 unspecified Category: Medical Plan: See below (3) History of hypoglycemia: Code(s): Z86.39 - Personal history of other endocrine, nutritional and metabolic disease Category: Medical Plan: See below (4) Diabetes type 2, uncontrolled: Code(s): E11.65 - Type 2 diabetes mellitus with hyperglycemia Category: Medical Qualifiers: Glycemic state: with hyperglycemia Qualified Code(s): E11.65 - Type 2 diabetes mellitus with hyperglycemia Plan: 84-year-old female with 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 With complications of nephropathy, neuropathy and PVD A1c elevated at 11.1% 01/05/25 POC which is worsened from 10.1% from September 2024. Blood sugar elevated today to 368 mg/dL but patient describes that she is not having any nausea, vomiting, feels well otherwise. She is having some dizziness for the past few weeks, she recently underwent from what she describes stent placement in the lower extremities, also found to have a DVT, on apixaban this was all done at [facility]. I do not have the paperwork. She is using freestyle Serafin 2, previously prescriptions to pharmacy has been sent for Serafin 3+, DME paperwork was sent in October 2024, patient has not heard from them. She she saw the paraeducator on 01/07/2025 for CGM upgrade teaching. However patient did not have freestyle Serafin 3 during that appointment. Our paraeducator did contact the pharmacy and check that sensor and reader we will be covered for her. She does have a lot of freestyle Serafin to use, plan is for her to use up those 1st before she switches over. I informed the patient today who is here with her son today that once she is done with her Serafin to use, to call our office to schedule appointment with the educator so we can switch her over. CGM data downloaded which shows a lot of hypoglycemia today. I am worried about her Tacos I feel she does not have supervision during the day when she might be taking insulin at the wrong times or skipping it or taking more than she is supposed to. She is leaving back for [place] beginning of February 2025 and she follows with the endocrinology there. Her son today reassured me that he does supervise her closely when she is in [place]. She has prescription of glucose tablets with her has prescription of Baqsimi. i. This is medically necessary as she has had severe hypoglycemia with no symptoms historically. She also has a history of CKD, no recent kidney function in the chart, these have been ordered previously in patient was again reiterated today importance of doing labs. Plan: -reduce Tresiba to 12 units daily -continue insulin aspart to 8 units t.i.d. before meals, do not take if blood sugar less than 100 -upgrade to Serafin 3+ sensor once she is done with the Serafin 2 -hypoglycemia education reviewed -she has not had any recent blood work, again reiterated to her importance of doing fasting blood work and urine test which has been due She is now leaving for [place], where she follows with the endocrinology and has a appointment scheduled already for 02/28/2025, she is going to see us back when she returns from [place] in August 2025. Written instructions were provided to the patient. (5) MCC (current) use of insulin: Code(s): Z79.4 - tank terminal gauger (current) use of insulin Category: Medical Plan: See above (6) Dyslipidemia: Code(s): E78.5 - Hyperlipidemia, unspecified Category: Medical Plan: No recent lipid panel in the chart, ordered lipid panel Plan I spent 30 minutes in reviewing the record, seeing the patient and documenting in the medical record. Orders: Orders AMB Glucose Monitoring Today E11.65 - Type 2 diabetes mellitus with hyperglycemia, Z79.4 - tank terminal gauger (current) use of insulin Medications: Changed From insulin degludec (Tresiba FlexTouch U-200 insulin) 16 units (0.08 mL) subcut BEDTIME 9 mL 5RF To Tresiba FlexTouch U-200 (insulin degludec) 12 units (0.06 mL) subcut BEDTIME 9 mL 5RF NS Patient Instructions: reduce tresiba to 12 units daily in the morning Continue insulin novolog/aspart 8 units units three times daily before meals if blood sugars are less than 100 before eating dont take short acting do blood work and urine test Coding Level of Care Code Est Pt Level 4 (09051) Diagnoses 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
[2025-02-05 14:09] LABS: Glucose, Whole Blood 368 mg/dL (60-115)
== END 2025-02-05 14:35 | disposition home or self-care (01) ==
LOC: HO.ENCR 13:39
PROVIDERS: PCP Internal Medicine; Visit Provider Student in an Organized Health Care Education/Training Program
DX: E11.65 Type 2 diabetes mellitus with hyperglycemia (principal); Z79.4 Long term (current) use of insulin; E78.5 Hyperlipidemia, unspecified; S36.209S Unspecified injury of unspecified part of pancreas, sequela; Z86.39 Personal history of other endocrine, nutritional and metabolic disease
CPT/HCPCS: 95251; 99214

== ENCOUNTER → 2025-02-05 13:39 | Outpatient (BNVA) | payer MEDICARE, SELFPAY | PROVIDERS: PCP Internal Medicine; Visit Provider Student in an Organized Health Care Education/Training Program | DX: E13.9 Other specified diabetes mellitus without complications (principal); S36.209S Unspecified injury of unspecified part of pancreas, sequela; E11.22 Type 2 diabetes mellitus with diabetic chronic kidney disease; N18.30 Chronic kidney disease, stage 3 unspecified; E11.65 Type 2 diabetes mellitus with hyperglycemia; Z79.4 Long term (current) use of insulin; E78.5 Hyperlipidemia, unspecified; Z83.3 Family history of diabetes mellitus; Z87.891 Personal history of nicotine dependence | CPT/HCPCS: 82947; 99212 ==

== ENCOUNTER 2025-02-06 08:25 | Outpatient (REF) | payer MEDICARE, SELFPAY ==
[2025-02-06 08:59] LABS: Hematocrit 35.1 % (37.0-47.0); Hemoglobin 11.1 g/dl (12.0-16.0); Mean Corpuscular HGB Conc 31.6 g/dl (31.0-35.0); Mean Corpuscular Hemoglobin 31.9 pg (27.0-33.0); Mean Corpuscular Volume 100.9 fL (80.0-98.0); NRBC Abs Auto 0.000 X10*3/uL (0.0-0.012); NRBC Pct Auto 0.0 /100WBC (0.0-0.2); Platelet Count 236 X10*3/uL (160-400); Red Blood Count 3.48 X10*6/uL (4.20-5.50); White Blood Count 9.1 X10*3/uL (4.8-10.8)
[2025-02-06 09:27] LABS: Alanine Aminotransferase 12 U/L (0-31); Aspartate Amino Transferase 25 U/L (5-31); Cholesterol 97 mg/dL (<200); Estimated Glomerular Filt Rate 40; HDL Cholesterol 36 mg/dL (>40); Triglycerides 105 mg/dL (<150)
[2025-02-06 09:38] LABS: Microalbum/Creatinine Ratio Ur 28.8 ug/mg cr (<30)
== END 2025-02-06 08:26 | disposition home or self-care (01) ==
LOC: HO.LAB 08:25
PROVIDERS: PCP Internal Medicine; Visit Provider Student in an Organized Health Care Education/Training Program
DX: E11.65 Type 2 diabetes mellitus with hyperglycemia (principal); Z79.4 Long term (current) use of insulin; E78.5 Hyperlipidemia, unspecified
CPT/HCPCS: 36415; 80061; 82043; 82565; 82570; 84450; 84460; 85027